=== PATIENT | male | born 1990 | race Caucasian/White ===

== ENCOUNTER 2018-08-15 20:35 | Inpatient (IN) | payer OTHER ==
[2018-08-15] MEDS ORDERED: ASPIRIN 81 MG PO STA (21:01)
[2018-08-15] MEDS ORDERED: DEXTROSE 5% IN WATER 100 ML with AMIODARONE 150 MG IV ONE (21:02)
[2018-08-15] MEDS ORDERED: DEXTROSE 5% IN WATER 250 ML with AMIODARONE 300 MG IV ONE (21:02)
[2018-08-15] MEDS ORDERED: AMIODARONE 360 MG in DEXTROSE 5% IN WATER 200 ML IV ONE ×2 (21:06)
[2018-08-15 21:21] LABS: Basophils % (A) 0 %; Eosinophils # (A) 0.2 k/uL (0-0.7); Eosinophils % (A) 2 %; HCT 45.3 % (39.0-53.0); HGB 15.3 gm/dL (13.0-17.5); Lymphocytes # (A) 2.5 k/uL (1.0-4.8); Lymphocytes % (A) 32 %; MCH 28.5 pg (25.0-35.0); MCHC 33.7 g/dL (31.0-37.0); MCV 84.4 fL (80.0-100.0); Mean Platelet Volume 6.6; Monocytes # (A) 0.4 k/uL (0-1.0); Monocytes % (A) 5 %; Neutrophils # (A) 4.7 k/uL (1.3-7.7); Neutrophils % (A) 60 %; Platelet Count 244 k/uL (150-450); RBC 5.37 m/uL (4.30-5.90); RDW 13.1 % (11.5-15.5); WBC 7.9 k/uL (3.8-10.6)
[2018-08-15 21:32] LABS: ALT 39 U/L (21-72); AST 32 U/L (17-59); Albumin 4.9 g/dL (3.5-5.0); Alkaline Phosphatase 60 U/L (38-126); Anion Gap 12 mmol/L; Blood Urea Nitrogen 16 mg/dL (9-20); Carbon Dioxide 23 mmol/L (22-30); Chloride 105 mmol/L (98-107); Glucose 136 mg/dL (74-99); Potassium 4.8 mmol/L (3.5-5.1); Sodium 140 mmol/L (137-145); Total Bilirubin 0.8 mg/dL (0.2-1.3); Total Protein 7.9 g/dL (6.3-8.2)
[2018-08-15 21:34] LABS: INR 1.1 (<1.2); Partial Thromboplastin Time 26.8 sec (22.0-30.0); Prothrombin Time 11.7 sec (9.0-12.0)
[2018-08-15] MEDS ORDERED: ONDANSETRON 4 MG/2 ML VIAL IVP STA (22:09)
[2018-08-15] MEDS ORDERED: LIDOCAINE 2% SYG (PF) 100 MG/5 ML IV STA (22:24)
--- NOTE | 2018-08-15 23:04 | XR ---
EXAM: XR Chest, 2 Views CLINICAL HISTORY: ITS.REASON XR Reason: dysrhythmia TECHNIQUE: Frontal and lateral views of the chest. COMPARISON: Chest radiograph on 07/14/2015 FINDINGS: Hardware: None. Lungs/pleura: Normal. No focal consolidation. No pleural effusion or pneumothorax. Heart/mediastinum: Left-sided pacemaker/AICD. No cardiomegaly. Soft tissues: Unremarkable. Bones: No acute fracture. Upper abdomen: Normal. IMPRESSION: No acute disease identified.
[2018-08-15] MEDS ORDERED: SOTALOL 80 MG TAB PO STA (23:11)
--- NOTE | 2018-08-15 23:26 | ED ---
Arrhythmia/Palpitations HPI - General Chief Complaint: Arrhythmia/Palpitations Stated Complaint: Arrhythmia Time Seen by Provider: 08/15/18 20:54 Source: patient Mode of arrival: ambulatory Limitations: no limitations - History of Present Illness Initial Comments: This 27-year-old male presents with a complaint of palpitations and feeling slightly fatigued which started at 4 PM today. He states that he was at work. He sat down and this did not seem to help. He then went home and rested and that still did not help. He denies any chest pain or shortness of breath. 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 He did have a defibrillator placed. His defibrillator has not gone off tonight. He previously was on sotalol 80 mg twice a day but states that he stopped this approximately one month ago due to insurance reasons. He denies any other complaints or modifying factors. 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 - Related Data Home Medications Medication Instructions Recorded Confirmed No Known Home Medications 08/15/18 08/15/18 Allergies Allergy/AdvReac Type Severity Reaction Status Date / Time No Known Allergies Allergy Verified 08/15/18 20:47 Review of Systems ROS Statement: Those systems with pertinent positive or pertinent negative responses have been documented in the HPI. ROS Other: All systems not noted in ROS Statement are negative. Past Medical History Past Medical History: Diabetes Mellitus Additional Past Medical History / Comment(s): See Dr Julienne Peña&Galo, (pt states he was diagnosed with diabetes several years ago. he states he does not see a physician to manage his diabetes and never checks his blood glucose furhtur stated that when he was in hospital last, that he was told he may have been misdiagnosed) . arrhythmia (per pts pt had v tach) x 1 year ago with cardioversion x 2, past concussion 4 years ago., History of Any Multi-Drug Resistant Organisms: None Reported Past Surgical History: EPS, Heart Catheterization, Pacemaker Additional Past Surgical History / Comment(s): CARDIOVERSION, Past Anesthesia/Blood Transfusion Reactions: No Reported Reaction Type of Cardiac Device: Permanent Pacemaker Device Placement Date:: 07/2015 Past Psychological History: No Psychological Hx Reported Smoking Status: Never smoker Past Alcohol Use History: None Reported Past Drug Use History: None Reported - Past Family History Mother Family Medical History: No Reported History Father Family Medical History: No Reported History Sister(s) Family Medical History: No Reported History General Exam - General Exam Comments Initial Comments: GENERAL: The patient is well nourished and well hydrated. VITAL SIGNS: Heart rate, blood pressure, respiratory rate reviewed as recorded in nurse's notes. EYES: Pupils are round and reactive. Extraocular movements are intact. No conjunctival / lid redness or swelling. ENT: No external evidence of injury, swelling, or ecchymosis. Airway is patent. Throat is clear. NECK: Nontender. No swelling or evidence of injury. No subcutaneous emphysema. Trachea is midline. No thyroid mass. HEART: Tachycardic regular rhythm LUNGS/CHEST: Breath sounds clear and equal bilaterally. No rales, rhonchi, or wheezes. No ecchymosis, subcutaneous emphysema, or tenderness. ABDOMEN: Abdomen soft without tenderness. No palpable masses or organomegaly. No peritoneal signs. No abdominal wall swelling or ecchymosis. EXTREMITIES: No extremity tenderness. Normal muscle tone and function. No thora columbar tenderness. NEUROLOGIC: Sensation is grossly intact. Cranial nerve exam reveals face is sy mmetrical, tongue is midline, speech is clear. SKIN: No abrasions or ecchymosis is noted. No induration or masses noted. PSYCHIATRIC: Alert and oriented. Appropriate behavior and judgment. Limitations: no limitations Course Vital Signs 08/15/18 08/15/18 08/15/18 20:37 21:59 22:10 Temperature 97.5 F L Pulse Rate 167 H 173 H 156 H Respiratory 18 20 20 Rate Blood Pressure 99/85 124/47 O2 Sat by Pulse 100 99 100 Oximetry 08/15/18 08/15/18 22:30 23:00 Temperature Pulse Rate 154 H 158 H Respiratory 20 20 Rate Blood Pressure 110/97 111/90 O2 Sat by Pulse 98 99 Oximetry Medical Decision Making - Medical Decision Making The patient was seen and examined. All diagnostics were reviewed. The EKG shows a wide complex tachycardia at a rate of 167. He also has a left bundle branch block. The QRS duration is 174 and the QTC intervals 507. An IV is established and he is mildly hydrated. The patient receives amiodarone 150 mg over 10 minutes and then is started on an amiodarone drip. This does not seem to affect his rate to any degree. He became nauseated and vomited on one occasion receives 8 mg of Zofran intravenously. The laboratories reviewed and shows an elevated troponin. The case is discussed with Dr. Stanley from cardiology and he would request of the patient received some lidocaine 100 mg IV and then possibly a drip if this seems to work. This does not work then he is also to attempt some Lopressor 5 mg IV. The patient is feeling well on multiple rechecks but is persistently tachycardic. It is felt as though he would require admission to the intensive care unit for further treatment. The case is also discussed with ICU physician Dr. Gray and he is informed of patient's pr ogress. In addition, case is discussed with internal medicine and they're agreeable to admission as well. As a further update, after receiving most of the lidocaine, he converted back to a normal sinus rhythm. Case was rediscussed with Dr. Stanley and he would like us to continue him on both the amiodarone and the lidocaine drip. The patient is stable on recheck and updated on multiple occasions. Approximately 40 minutes of critical care time is utilized and the treatment of the patient. The repeat EKG shows a normal sinus rhythm at a rate of 83. There is some T-wave inversions in V1 and V2. There is no ST elevation identified. The MD intervals 140, QRS duration is 106, and the QTC intervals 458. - Lab Data Result diagrams: 08/15/18 21:11 08/15/18 21:11 Lab Results 08/15/18 08/15/18 08/15/18 Range/Units 21:11 21:11 21:11 WBC 7.9 (3.8-10.6) k/uL RBC 5.37 (4.30-5.90) m/uL Hgb 15.3 (13.0-17.5) gm/dL Hct 45.3 (39.0-53.0) % MCV 84.4 (80.0-100.0) fL MCH 28.5 (25.0-35.0) pg MCHC 33.7 (31.0-37.0) g/dL RDW 13.1 (11.5-15.5) % Plt Count 244 (150-450) k/uL Neutrophils % 60 % Lymphocytes % 32 % Monocytes % 5 % Eosinophils % 2 % Basophils % 0 % Neutrophils # 4.7 (1.3-7.7) k/uL Lymphocytes # 2.5 (1.0-4.8) k/uL Monocytes # 0.4 (0-1.0) k/uL Eosinophils # 0.2 (0-0.7) k/uL Basophils # 0.0 (0-0.2) k/uL PT 11.7 (9.0-12.0) sec INR 1.1 (<1.2) APTT 26.8 (22.0-30.0) sec Sodium 140 (137-145) mmol/L Potassium 4.8 (3.5-5.1) mmol/L Chloride 105 (98-107) mmol/L Carbon Dioxide 23 (22-30) mmol/L Anion Gap 12 mmol/L BUN 16 (9-20) mg/dL Creatinine 0.91 (0.66-1.25) mg/dL Est GFR (CKD-EPI)AfAm >90 (>60 ml/min/1.73 sqM) Est GFR (CKD-EPI)NonAf >90 (>60 ml/min/1.73 sqM) Glucose 136 H (74-99) mg/dL Calcium 10.0 (8.4-10.2) mg/dL Magnesium 2.0 (1.6-2.3) mg/dL Total Bilirubin 0.8 (0.2-1.3) mg/dL AST 32 (17-59) U/L ALT 39 (21-72) U/L Alkaline Phosphatase 60 (38-126) U/L Troponin I (0.000-0.034) ng/mL Total Protein 7.9 (6.3-8.2) g/dL Albumin 4.9 (3.5-5.0) g/dL TSH 3.200 (0.465-4.680) mIU/L 08/15/18 Range/Units 21:11 WBC (3.8-10.6) k/uL RBC (4.30-5.90) m/uL Hgb (13.0-17.5) gm/dL Hct (39.0-53.0) % MCV (80.0-100.0) fL MCH (25.0-35.0) pg MCHC (31.0-37.0) g/dL RDW (11.5-15.5) % Plt Count (150-450) k/uL Neutrophils % % Lymphocytes % % Monocytes % % Eosinophils % % Basophils % % Neutrophils # (1.3-7.7) k/uL Lymphocytes # (1.0-4.8) k/uL Monocytes # (0-1.0) k/uL Eosinophils # (0-0.7) k/uL Basophils # (0-0.2) k/uL PT (9.0-12.0) sec INR (<1.2) APTT (22.0-30.0) sec Sodium (137-145) mmol/L Potassium (3.5-5.1) mmol/L Chloride (98-107) mmol/L Carbon Dioxide (22-30) mmol/L Anion Gap mmol/L BUN (9-20) mg/dL Creatinine (0.66-1.25) mg/dL Est GFR (CKD-EPI)AfAm (>60 ml/min/1.73 sqM) Est GFR (CKD-EPI)NonAf (>60 ml/min/1.73 sqM) Glucose (74-99) mg/dL Calcium (8.4-10.2) mg/dL Magnesium (1.6-2.3) mg/dL Total Bilirubin (0.2-1.3) mg/dL AST (17-59) U/L ALT (21-72) U/L Alkaline Phosphatase (38-126) U/L Troponin I 0.258 H* (0.000-0.034) ng/mL Total Protein (6.3-8.2) g/dL Albumin (3.5-5.0) g/dL TSH (0.465-4.680) mIU/L Disposition Clinical Impression: Wide-complex tachycardia, Elevated troponin, Palpitations Disposition: ADMITTED IP TO THIS HOSP Condition: Fair Is patient prescribed a controlled substance at d/c from ED?: No Time of Disposition: 23: Decision Date: 08/15/18 Decision Time: 23:26
[2018-08-15] MEDS ORDERED: ACETAMINOPHEN TAB 325 MG TAB PO PRN (23:38)
[2018-08-15] MEDS: LIDOCAINE-D5W PMX 2G/250ML 2,000 MG in DEXTROSE/WATER 1 250ML.BAG IV SCH (23:58)
[2018-08-16 01:51] LABS: Glucose,Whole Blood 117 mg/dL (75-99)
[2018-08-16 02:03] VITALS: BMI 23.1
[2018-08-16] MEDS: AMIODARONE 300 MG in DEXTROSE 5% IN WATER 250 ML IV SCH ×4 (03:00→15:01)
[2018-08-16 03:57] LABS: Basophils % (A) 0 %; Eosinophils # (A) 0.1 k/uL (0-0.7); Eosinophils % (A) 1 %; HCT 42.8 % (39.0-53.0); HGB 14.1 gm/dL (13.0-17.5); Lymphocytes % (A) 11 %; MCH 28.1 pg (25.0-35.0); MCHC 32.9 g/dL (31.0-37.0); MCV 85.3 fL (80.0-100.0); Mean Platelet Volume 6.5; Monocytes # (A) 0.5 k/uL (0-1.0); Monocytes % (A) 6 %; Neutrophils # (A) 7.5 k/uL (1.3-7.7); Neutrophils % (A) 80 %; Platelet Count 196 k/uL (150-450); RBC 5.02 m/uL (4.30-5.90); RDW 13.1 % (11.5-15.5); WBC 9.3 k/uL (3.8-10.6)
[2018-08-16 04:26] LABS: Anion Gap 8 mmol/L; Blood Urea Nitrogen 19 mg/dL (9-20); Calcium 9.8 mg/dL (8.4-10.2); Carbon Dioxide 29 mmol/L (22-30); Chloride 101 mmol/L (98-107); Glucose 114 mg/dL (74-99); Magnesium 2.2 mg/dL (1.6-2.3); Phosphorus 4.4 mg/dL (2.5-4.5); Potassium 5.4 mmol/L (3.5-5.1); Sodium 138 mmol/L (137-145)
--- NOTE | 2018-08-16 07:31 | P.CRDCN ---
History of Present Illness Consult date: 08/16/18 Chief complaint: Palpitation History of present illness: This is a pleasant 27-year-old gentleman with a past medical history significant for cardiac arrhythmia in the form of ventricular tachycardia where he received an AICD back in 2015 presented to the hospital complaining of palpitation. The patient was in his usual state of health until yesterday when he was sitting home and suddenly started experiencing palpitation in the chest without any symptoms of dizziness or lightheadedness or syncope. No chest pain or chest discomfort. Because of that he decided to come to the emergency room were in the ER he was found to be in wide-complex tachycardia consistent with V. tach. The heart rate at that point was 150 bpm. The patient received amiodarone without any response and subsequently he was started on lidocaine drip with conversion to normal sinus mechanism. Since then he has been in normal sinus mechanism. He is feeling better. Electrolytes were checked and came in to be unremarkable. The patient was receiving sotalol as an outpatient but unfortunately because of insurance issues he was unable to afford his medications so he was not receiving his home medications for a few weeks now. The cardiac enzymes came in to be slightly abnormal and that is likely secondary to the tachycardia and ventricular tachycardia. The patient did not have any symptoms of chest pain or chest discomfort. Past Medical History Past Medical History: Diabetes Mellitus Additional Past Medical History / Comment(s): See Dr Julienne Peña&Galo, (pt states he was diagnosed with diabetes several years ago. he states he does not see a physician to manage his diabetes and never checks his blood glucose furhtur stated that when he was in hospital last, that he was told he may have been misdiagnosed) . arrhythmia (per pts pt had v tach) x 1 year ago with cardioversion x 2, past concussion 4 years ago., History of Any Multi-Drug Resistant Organisms: None Reported Past Surgical History: EPS, Heart Catheterization, Pacemaker Additional Past Surgical History / Comment(s): CARDIOVERSION, Past Anesthesia/Blood Transfusion Reactions: No Reported Reaction Type of Cardiac Device: Permanent Pacemaker Device Placement Date:: 07/2015 Past Psychological History: No Psychological Hx Reported Additional Psychological History / Comment(s): . Smoking Status: Never smoker Past Alcohol Use History: None Reported Past Drug Use History: None Reported - Past Family History Mother Family Medical History: No Reported History Father Family Medical History: No Reported History Sister(s) Family Medical History: No Reported History Medications and Allergies Home Medications Medication Instructions Recorded Confirmed Type Sotalol [Betapace] 80 mg PO BID 08/16/18 08/16/18 History Allergies Allergy/AdvReac Type Severity Reaction Status Date / Time No Known Allergies Allergy Verified 08/15/18 20:47 Physical Exam Vitals: Vital Signs Temp Pulse Resp BP Pulse Ox 08/16/18 07:00 64 20 08/16/18 06:45 68 9 L 118/77 98 08/16/18 06:30 60 15 08/16/18 06:15 62 17 122/82 08/16/18 06:00 81 11 L 122/82 08/16/18 05:45 59 L 14 123/76 08/16/18 05:30 70 14 106/68 08/16/18 05:15 57 L 15 08/16/18 05:00 58 L 15 106/68 08/16/18 04:45 59 L 13 08/16/18 04:30 58 L 14 08/16/18 04:15 63 15 08/16/18 04:00 97.5 F L 76 13 108/74 97 08/16/18 03:45 75 14 08/16/18 03:30 59 L 13 08/16/18 03:15 61 15 08/16/18 03:00 62 15 08/16/18 02:45 59 L 13 08/16/18 02:30 64 19 08/16/18 02:10 61 08/16/18 01:50 97.5 F L 72 16 122/90 98 08/15/18 23:23 87 20 112/67 99 08/15/18 23:00 158 H 20 111/90 99 08/15/18 22:30 154 H 20 110/97 98 08/15/18 22:10 156 H 20 100 08/15/18 21:59 173 H 20 124/47 99 08/15/18 20:37 97.5 F L 167 H 18 99/85 100 Intake and Output 08/15/18 08/16/18 08/16/18 22:59 06:59 14:59 Output Total 750 700 Balance -750 -700 Output: Urine 750 700 Other: # Voids 0 1 Weight 74.843 kg - Constitutional General appearance: no acute distress - Respiratory Respiratory: bilateral: CTA - Cardiovascular Rhythm: regular Heart sounds: normal: S1, S2 Results 08/16/18 03:44 08/16/18 03:44 Cardiac Enzymes 08/15/18 08/15/18 08/16/18 Range/Units 21:11 21:11 03:44 AST 32 (17-59) U/L Troponin I 0.258 H* 0.526 H* (0.000-0.034) ng/mL Coagulation 08/15/18 Range/Units 21:11 PT 11.7 (9.0-12.0) sec APTT 26.8 (22.0-30.0) sec CBC 08/15/18 08/16/18 Range/Units 21:11 03:44 WBC 7.9 9.3 (3.8-10.6) k/uL RBC 5.37 5.02 (4.30-5.90) m/uL Hgb 15.3 14.1 (13.0-17.5) gm/dL Hct 45.3 42.8 (39.0-53.0) % Plt Count 244 196 (150-450) k/uL Comprehensive Metabolic Panel 08/15/18 08/16/18 Range/Units 21:11 03:44 Sodium 140 138 (137-145) mmol/L Potassium 4.8 5.4 H (3.5-5.1) mmol/L Chloride 105 101 (98-107) mmol/L Carbon Dioxide 23 29 (22-30) mmol/L BUN 16 19 (9-20) mg/dL Creatinine 0.91 0.99 (0.66-1.25) mg/dL Glucose 136 H 114 H (74-99) mg/dL Calcium 10.0 9.8 (8.4-10.2) mg/dL AST 32 (17-59) U/L ALT 39 (21-72) U/L Alkaline Phosphatase 60 (38-126) U/L Total Protein 7.9 (6.3-8.2) g/dL Albumin 4.9 (3.5-5.0) g/dL Current Medications Generic Name Dose Route Start Last Admin Trade Name Freq PRN Reason Stop Dose Admin Acetaminophen 650 mg 08/15/18 23:38 Tylenol Tab PO Q4HR PRN Fever and/or Mild Pain Aspirin 325 mg 08/16/18 09:00 Aspirin PO DAILY JOANNA Enoxaparin Sodium 40 mg 08/16/18 09:00 Lovenox SQ DAILY JOANNA Amiodarone HCl 300 mg/ 250 mls @ 25 mls/hr 08/16/18 03:06 08/16/18 03:00 Dextrose/Water IV 08/16/18 21:05 0.5 mg/min .Q10H JOANNA 25 mls/hr Administration Protocol 0.5 MG/MIN Lidocaine HCl/Dextrose 2,000 250 mls @ 15 mls/hr 08/15/18 23:45 08/15/18 23:58 mg/ IV Solution IV 2 mg/min .[id number] JOANNA 15 mls/hr Administration 2 MG/MIN Metoprolol Tartrate 25 mg 08/16/18 09:00 Lopressor PO BID JOANNA Pantoprazole Sodium 40 mg 08/16/18 09:00 Protonix IV DAILY JOANNA Intake and Output 08/15/18 08/16/18 08/16/18 22:59 06:59 14:59 Output Total 750 700 Balance -750 -700 Output: Urine 750 700 Other: # Voids 0 1 Weight 74.843 kg 08/16/18 03:44 08/16/18 03:44 Assessment and Plan Assessment: Assessment #1 sustained ventricular tachycardia #2 known ventricular tachycardia #3 status post AICD #4 noncompliance with medications Plan #1 continue the amiodarone drip and continue the lidocaine drip #2 interrogated AICD #3 start the patient on metoprolol by mouth #[address] Robins to see the patient #5 follow-up with the patient Thank you for allowing us participate in his care
[2018-08-16] MEDS ORDERED: PANTOPRAZOLE 40 MG/10 ML VIAL IV SCH (09:00)
[2018-08-16] MEDS ORDERED: METOPROLOL TARTRATE 25 MG TAB PO SCH (09:00)
[2018-08-16] MEDS: ASPIRIN 325 MG TAB PO SCH (09:13)
[2018-08-16] MEDS: ENOXAPARIN 40 MG/0.4 ML SYRINGE SQ SCH (09:13)
--- NOTE | 2018-08-16 11:10 | P.CNPUL ---
History of Present Illness Consult date: 08/16/18 Requesting physician: Donavan Toro Reason for consult: other (Ventricular tachycardia) Chief complaint: Palpitations History of present illness: This is a 27-year-old white male with known history of ventricular tachycardia for many years. Patient had previous AICD in 2016, and has been controlled with antiarrhythmic agents given to him by Dr. Alejo. Patient had some issues with the cost of the medication, and he stopped taking it. Presented to the ER yesterday with mostly symptoms of palpitations without any dizziness lightheadedness or syncope. He had no chest pain, in the ER, the patient was found to have wide complex tachycardia consistent with ventricular tachycardia. Heart rate was 150/m. Patient received amiodarone without any response, he was later placed on lidocaine drip in addition to amiodarone. Patient converted to a sinus rhythm, admitted to the ICU, and I was asked to see him on consultation. During my evaluation, patient was relatively asymptomatic, he was in normal sinus rhythm, had no palpitations, no chest pain, no shortness of breath, he was already seen by cardiology, and he is yet to be seen by Dr. Alejo who was consulted by Dr. Sesay. According to the patient, he was maintained on sotalol, and he couldn't afford buying it. Review of Systems Constitutional: Denies any weight loss, no fever, no chills, no night sweats. HEENT: Denies any sore throat, no earaches, no diplopia, no blurred vision, no headaches, no dizziness. Cardiac: As noted in HPI, mostly palpitations. No chest pain, no syncope. No orthopnea, no PND. Pulmonary: No cough no wheezing no shortness of breath no chest pain, no hemoptysis. GI: Denies any nausea vomiting abdominal pain melena or hematemesis. No diarrhea no constipation. Genitourinary: Denies any dysuria frequency urgency or hematuria. [place] skeletal: Denies any arthralgia, or myalgia. Skin: Denies any rashes, or erythema. No skin discoloration, no hives. Neurologic: No headaches no blurred vision no dizziness. No syncope. Psychiatric: Denies any symptoms of active depression Hematologic: Denies any clotting bleeding or bruising. Past Medical History Past Medical History: Diabetes Mellitus Additional Past Medical History / Comment(s): See Dr Julienne Peña&Galo, (pt states he was diagnosed with diabetes several years ago. he states he does not see a physician to manage his diabetes and never checks his blood glucose furhtur stated that when he was in hospital last, that he was told he may have been misdiagnosed) . arrhythmia (per pts pt had v tach) x 1 year ago with cardioversion x 2, past concussion 4 years ago., History of Any Multi-Drug Resistant Organisms: None Reported Past Surgical History: EPS, Heart Catheterization, Pacemaker Additional Past Surgical History / Comment(s): CARDIOVERSION, Past Anesthesia/Blood Transfusion Reactions: No Reported Reaction Type of Cardiac Device: Permanent Pacemaker Device Placement Date:: 07/2015 Past Psychological History: No Psychological Hx Reported Additional Psychological History / Comment(s): . Smoking Status: Never smoker Past Alcohol Use History: None Reported Past Drug Use History: None Reported - Past Family History Mother Family Medical History: No Reported History Father Family Medical History: No Reported History Sister(s) Family Medical History: No Reported History Medications and Allergies Home Medications Medication Instructions Recorded Confirmed Type Sotalol [Betapace] 80 mg PO BID 08/16/18 08/16/18 History Allergies Allergy/AdvReac Type Severity Reaction Status Date / Time No Known Allergies Allergy Verified 08/15/18 20:47 Physical Exam Vitals: Vital Signs Temp Pulse Resp BP Pulse Ox 08/16/18 10:30 75 8 L 114/76 08/16/18 10:15 64 20 114/76 08/16/18 10:00 65 15 112/72 08/16/18 09:45 70 22 112/72 08/16/18 09:30 72 14 116/80 08/16/18 09:15 75 11 L 116/80 08/16/18 09:00 75 23 116/80 08/16/18 08:45 80 16 118/72 08/16/18 08:30 69 42 H 124/76 08/16/18 08:15 77 18 124/76 08/16/18 08:00 97.5 F L 70 11 L 127/84 99 08/16/18 07:45 71 14 127/84 08/16/18 07:30 67 23 120/82 08/16/18 07:15 72 14 120/82 08/16/18 07:00 64 20 08/16/18 06:45 68 9 L 118/77 98 08/16/18 06:30 60 15 08/16/18 06:15 62 17 122/82 08/16/18 06:00 81 11 L 122/82 08/16/18 05:45 59 L 14 123/76 08/16/18 05:30 70 14 106/68 08/16/18 05:15 57 L 15 08/16/18 05:00 58 L 15 106/68 08/16/18 04:45 59 L 13 08/16/18 04:30 58 L 14 08/16/18 04:15 63 15 08/16/18 04:00 97.5 F L 76 13 108/74 97 08/16/18 03:45 75 14 08/16/18 03:30 59 L 13 08/16/18 03:15 61 15 08/16/18 03:00 62 15 08/16/18 02:45 59 L 13 08/16/18 02:30 64 19 08/16/18 02:10 61 08/16/18 01:50 97.5 F L 72 16 122/90 98 08/15/18 23:23 87 20 112/67 99 08/15/18 23:00 158 H 20 111/90 99 08/15/18 22:30 154 H 20 110/97 98 08/15/18 22:10 156 H 20 100 08/15/18 21:59 173 H 20 124/47 99 08/15/18 20:37 97.5 F L 167 H 18 99/85 100 Intake and Output 08/15/18 08/16/18 08/16/18 22:59 06:59 14:59 Intake Total 600 Output Total 750 1400 Balance -750 -800 Intake: Intake, IV Titration 120 Amount Amiodarone 300 mg In 75 Dextrose 5% in Water 250 ml @ 0.5 MG/MIN 25 mls/hr IV .Q10H JOANNA Rx#: [id number] Lidocaine-D5w Pmx 2G/ 45 250Ml 2,000 mg In Dextrose/Water 1 250ml. bag @ 2 MG/MIN 15 mls/hr IV .[id number] JOANNA Rx#: [id number] Oral 480 Output: Urine 750 1400 Other: # Voids 0 1 Weight 74.843 kg Physical Exam: Revealed a 27-year-old white male in no distress. Head: Atraumatic, normocephalic. HEENT:[Neck is supple.] [No neck masses.] [No thyromegaly.] [No JVD.] Chest: [Clear throughout, no crackles, no rhonchi, no wheezes.] Cardiac Exam: [Normal S1 and S2, no S3 gallop, no murmur.] Abdomen: [Soft, nontender, no megaly, no rebound, no guarding, normal bowel sounds.] Extremities: [No clubbing, no edema, no cyanosis.] Neurological Exam: [No focal neurologic deficit.] Psychiatric: Normal mood affect and mental status examination Skin: No rashes. Lymphatics: No lymphadenopathy. Musculoskeletal: No limitation in range of motion as, no deformities. Results - Laboratory Findings CBC and BMP: 08/16/18 03:44 08/16/18 03:44 PT/INR, D-dimer PT 11.7 sec (9.0-12.0) 08/15/18 21:11 INR 1.1 (<1.2) 08/15/18 21:11 Abnormal lab findings: Abnormal Labs 08/15/18 08/15/18 08/16/18 21:11 21:11 01:47 Potassium Glucose 136 H POC Glucose (mg/dL) 117 H Troponin I 0.258 H* 08/16/18 08/16/18 08/16/18 03:44 03:44 08:48 Potassium 5.4 H Glucose 114 H POC Glucose (mg/dL) Troponin I 0.526 H* 0.401 H* - Diagnostic Findings Chest x-ray: image reviewed (No evidence of active disease.) Assessment and Plan Assessment: Impression: 1 wide-complex tachycardia with elevated troponins, Recommendation: Continue present treatment plan including amiodarone and lidocaine drip, patient may be switched to oral amiodarone, however prior to switching the patient, he is to be seen by Dr. Alejo, and decision will be made regarding his treatment plan. In the meantime his wide-complex tachycardia is well controlled, and we will continue to monitor the patient in the ICU. Continue amiodarone and lidocaine for the time being. All labs were reviewed a chest x-ray was reviewed. Not much to be added from the pulmonary perspective at this point. Time with Patient: Greater than 30
--- NOTE | 2018-08-16 11:56 | ECHOF ---
Referral Reason:arrythmia MEASUREMENTS -------- HEIGHT: 177.8 cm WEIGHT: 74.8 kg BP: 122/82 IVSd: 1.3 cm (0.6 - 1.1) LVIDd: 4.2 cm (3.9 - 5.3) LVPWd: 1.2 cm (0.6 - 1.1) IVSs: 1.7 cm LVIDs: 3.0 cm LVPWs: 1.8 cm LA Diam: 2.9 cm (2.7 - 3.8) RVIDd: 3.3 cm (< 3.3) Ao Diam: 3.3 cm (2.0 - 3.7) AV Cusp: 2.5 cm (1.5 - 2.6) EPSS: 0.4 cm MV E Tony: 0.86 m/s MV DecT: 246 ms MV A Tony: 0.44 m/s MV E/A Ratio: 1.97 RAP: 5.00 mmHg RVSP: 22.27 mmHg MV EF SLOPE: 113.70 mm/s (70 - 150) MV EXCURSION: 17.01 mm (> 18.000) FINDINGS -------- Paced rhythm. This was a technically adequate study. The left ventricular size is normal. There is mild concentric left ventricular hypertrophy. Overa ll left ventricular systolic function is mildly impaired with, an EF between 45 - 50 %. The right ventricle is mildly enlarged. The left atrial size is normal. The right atrium is normal in size. Interatrial and interventricular septum intact. The aortic valve is trileaflet and appears structurally normal. The mitral valve is normal. Mild tricuspid regurgitation present. Right ventricular systolic pressure is normal at < 35 mmHg. Trace/mild (physiologic) pulmonic regurgitation. The aortic root size is normal. Normal inferior vena cava with normal inspiratory collapse consistent with estimated right atrial pre ssure of 5 mmHg. The inferior vena cava is mildly dilated. There is no pericardial effusion. CONCLUSIONS -------- 1. Paced rhythm. 2. This was a technically adequate study. 3. The left ventricular size is normal. 4. There is mild concentric left ventricular hypertrophy. 5. Overall left ventricular systolic function is mildly impaired with, an EF between 45 - 50 %. 6. The right ventricle is mildly enlarged. 7. The left atrial size is normal. 8. The right atrium is normal in size. 9. Interatrial and interventricular septum intact. 10. The aortic valve is trileaflet and appears structurally normal. 11. The mitral valve is normal. 12. Mild tricuspid regurgitation present. 13. Right ventricular systolic pressure is normal at < 35 mmHg. 14. Trace/mild (physiologic) pulmonic regurgitation. 15. The aortic root size is normal. 16. Normal inferior vena cava with normal inspiratory collapse consistent with estimated right atrial pressure of 5 mmHg. 17. The inferior vena cava is mildly dilated. 18. There is no pericardial effusion. DIE REPAIR MACHINIST: Rosamaria Gamble RDCS
[2018-08-16] MEDS: LIDOCAINE-D5W PMX 2G/250ML 2,000 MG in DEXTROSE/WATER 1 250ML.BAG IV SCH (13:51)
[2018-08-16 14:28] LABS: Appearance,Urine Clear (Clear); Bilirubin,Urine Negative (Negative); Blood,Urine Negative (Negative); Color,Urine Light Yellow; Glucose,Urine (UA) Negative (Negative); Ketones,Urine Negative (Negative); Leukocyte Esterase,Urine Negative (Negative); Nitrite,Urine Negative (Negative); Protein,Urine Negative (Negative); Urobilinogen,Urine <2.0 mg/dL (<2.0)
--- NOTE | 2018-08-16 16:03 | P.HPIM ---
History of Present Illness H&P Date: 08/16/18 This is a 27 year old male patient without primary care physician but follow-up with Dr. Tee in the past with history of AICD placement for ventricular tachycardia in 2016. Patient gives history of feeling palpitations. He denies any syncopal episodes. No history of CVA. He denies any shortness of breath, chest pain no abdominal pain. He states he has felt a shock from the AICD but it was 2 years ago. Patient came into [facility] emergency center where he was found have a wide complex tachycardia consistent with V. tach. It was at 150 bpm. Patient was started on lidocaine drip and converted to normal sinus rhythm. Patient is now seen in the intensive care unit and his pacing maker has been interrogated this morning. He has been seen in consultation by cardiology with plan for continuation of lidocaine drip and amiodarone drip and metoprolol was started by mouth. Patient to be seen by Dr. Aceves as well. Echocardiogram reveals EF of 45-50% with mild concentric left hypertrophy, mild tricuspid regurgitation. Review of Systems All systems: negative Constitutional: Denies anorexia, Denies chills, Denies fatigue, Denies fever, Denies lethargy, Denies malaise, Denies poor appetite Eyes: denies blurred vision, denies pain Ears, nose, mouth and throat: Denies dysphagia, Denies headache, Denies nasal congestion, Denies nasal discharge, Denies sore throat, Denies vertigo Cardiovascular: Reports palpitations, Denies chest pain, Denies dyspnea on exertion, Denies edema, Denies shortness of breath, Denies syncope Respiratory: Denies cough, Denies cough with sputum, Denies dyspnea, Denies excessive sputum, Denies hemoptysis, Denies home oxygen, Denies wheezing Gastrointestinal: Denies abdominal pain, Denies diarrhea, Denies loss of appetite, Denies nausea, Denies vomiting Genitourinary: Denies dysuria Musculoskeletal: Denies frequent falls, Denies gait dysfunction, Denies muscle weakness, Denies myalgias Integumentary: Denies pruritus, Denies rash, Denies wounds Neurological: Denies aphasia, Denies change in mentation, Denies change in spee ch, Denies gait dysfunction, Denies headaches, Denies numbness, Denies seizures, Denies vertigo, Denies weakness Psychiatric: Denies anxiety, Denies depression Endocrine: Denies fatigue, Denies weight change Past Medical History Past Medical History: Diabetes Mellitus Additional Past Medical History / Comment(s): per pts pt had v tach) x 1 year ago with cardioversion x 2, past concussion 4 years ago., History of Any Multi-Drug Resistant Organisms: None Reported Past Surgical History: AICD, EPS, Heart Catheterization Additional Past Surgical History / Comment(s): CARDIOVERSION, Past Anesthesia/Blood Transfusion Reactions: No Reported Reaction Type of Cardiac Device: Permanent Pacemaker Device Placement Date:: 07/2015 Past Psychological History: No Psychological Hx Reported Additional Psychological History / Comment(s): . Smoking Status: Never smoker Past Alcohol Use History: None Reported Additional Past Alcohol Use History / Comment(s): Patient is a lifelong nonsmoker, no marijuana or illicit drug use, no alcohol use. Past Drug Use History: None Reported - Past Family History Mother Family Medical History: No Reported History Father Family Medical History: No Reported History Sister(s) Family Medical History: No Reported History Medications and Allergies Home Medications Medication Instructions Recorded Confirmed Type Sotalol [Betapace] 80 mg PO BID 08/16/18 08/16/18 History Allergies Allergy/AdvReac Type Severity Reaction Status Date / Time No Known Allergies Allergy Verified 08/15/18 20:47 Physical Exam Vitals: Vital Signs Temp Pulse Resp BP Pulse Ox 08/16/18 10:30 75 8 L 114/76 08/16/18 10:15 64 20 114/76 08/16/18 10:00 65 15 112/72 08/16/18 09:45 70 22 112/72 08/16/18 09:30 72 14 116/80 08/16/18 09:15 75 11 L 116/80 08/16/18 09:00 75 23 116/80 08/16/18 08:45 80 16 118/72 08/16/18 08:30 69 42 H 124/76 08/16/18 08:15 77 18 124/76 08/16/18 08:00 97.5 F L 70 11 L 127/84 99 08/16/18 07:45 71 14 127/84 08/16/18 07:30 67 23 120/82 08/16/18 07:15 72 14 120/82 08/16/18 07:00 64 20 08/16/18 06:45 68 9 L 118/77 98 08/16/18 06:30 60 15 08/16/18 06:15 62 17 122/82 08/16/18 06:00 81 11 L 122/82 08/16/18 05:45 59 L 14 123/76 08/16/18 05:30 70 14 106/68 08/16/18 05:15 57 L 15 08/16/18 05:00 58 L 15 106/68 08/16/18 04:45 59 L 13 08/16/18 04:30 58 L 14 08/16/18 04:15 63 15 08/16/18 04:00 97.5 F L 76 13 108/74 97 08/16/18 03:45 75 14 08/16/18 03:30 59 L 13 08/16/18 03:15 61 15 08/16/18 03:00 62 15 08/16/18 02:45 59 L 13 08/16/18 02:30 64 19 08/16/18 02:10 61 08/16/18 01:50 97.5 F L 72 16 122/90 98 08/15/18 23:23 87 20 112/67 99 08/15/18 23:00 158 H 20 111/90 99 08/15/18 22:30 154 H 20 110/97 98 08/15/18 22:10 156 H 20 100 08/15/18 21:59 173 H 20 124/47 99 08/15/18 20:37 97.5 F L 167 H 18 99/85 100 Intake and Output 08/15/18 08/16/18 08/16/18 22:59 06:59 14:59 Intake Total 600 Output Total 750 1400 Balance -750 -800 Intake: Intake, IV Titration 120 Amount Amiodarone 300 mg In 75 Dextrose 5% in Water 250 ml @ 0.5 MG/MIN 25 mls/hr IV .Q10H [facility] Rx#: [id number] Lidocaine-D5w Pmx 2G/ 45 250Ml 2,000 mg In Dextrose/Water 1 250ml. bag @ 2 MG/MIN 15 mls/hr IV .[id number] [facility] Rx#: [id number] Oral 480 Output: Urine 750 1400 Other: # Voids 0 1 Weight 74.843 kg Gen: This is a 27-year-old male. He is resting in the ICU bed sleeping and awakens to light touch. He appears to be comfortable and in no acute distress. HEENT: Head is atraumatic, normocephalic. Pupils equal, round. Sclerae is anicteric. Conjunctiva pink. NECK: Supple. No JVD. No lymphadenopathy. No thyromegaly. LUNGS: Clear to auscultation. No wheezes or rhonchi. No intercostal retractions. HEART: Regular rate and rhythm. No murmur. ABDOMEN: Soft. Bowel sounds are present. No masses. No tenderness. EXTREMITIES: No pedal edema. No calf tenderness. Dorsalis pedis +2 bilaterally. NEUROLOGICAL: Patient is awake, alert and oriented x3. Cranial nerves 2 through 12 are grossly intact. Results CBC & Chem 7: 08/16/18 03:44 08/16/18 03:44 Labs: Abnormal Lab Results - Last 24 Hours (Table) 08/15/18 08/15/18 08/16/18 Range/Units 21:11 21:11 01:47 Potassium (3.5-5.1) mmol/L Glucose 136 H (74-99) mg/dL POC Glucose (mg/dL) 117 H (75-99) mg/dL Troponin I 0.258 H* (0.000-0.034) ng/mL 08/16/18 08/16/18 08/16/18 Range/Units 03:44 03:44 08:48 Potassium 5.4 H (3.5-5.1) mmol/L Glucose 114 H (74-99) mg/dL POC Glucose (mg/dL) (75-99) mg/dL Troponin I 0.526 H* 0.401 H* (0.000-0.034) ng/mL Thrombosis Risk Factor Assmnt - DVT/VTE Prophylaxis DVT/VTE Prophylaxis: Pharmacologic Prophylaxis ordered - Choose All That Apply Any of the Below Risk Factors Present?: No Other Risk Factors: No Other congenital or acquired thrombophilia - If yes, enter type in comment: No Thrombosis Risk Factor Assessment Level: Very Low Risk Assessment and Plan Plan: 1. Wide complex tachycardia. Cardiology consult appreciated. Consult with Dr. Robins has been added. Continue amiodarone and lidocaine drips. Patient started on metoprolol. 2. History of ventricular tachycardia status post AICD. This is been interrogated this morning. 3. DVT prophylaxis. Lovenox. 4. GI prophylaxis. Protonix. Patient will be admitted to the hospital for a minimum of 2 night stay. Discharge plan: Return home. Impression and plan of care have been directed as dictated by the signing physician. Yulissa Das nurse practitioner acting as scribe for signing physician.
[2018-08-16] MEDS: METOPROLOL TARTRATE 50 MG TAB PO SCH (20:32)
[2018-08-16] MEDS ORDERED: LIDOCAINE-D5W PMX 2G/250ML 2,000 MG in DEXTROSE/WATER 1 250ML.BAG IV SCH (20:45)
[2018-08-17 05:50] LABS: Basophils % (A) 0 %; Eosinophils # (A) 0.1 k/uL (0-0.7); Eosinophils % (A) 1 %; HCT 41.2 % (39.0-53.0); HGB 13.6 gm/dL (13.0-17.5); Lymphocytes # (A) 1.8 k/uL (1.0-4.8); Lymphocytes % (A) 20 %; MCV 84.9 fL (80.0-100.0); Monocytes # (A) 0.6 k/uL (0-1.0); Monocytes % (A) 7 %; Neutrophils # (A) 6.2 k/uL (1.3-7.7); Neutrophils % (A) 69 %; Platelet Count 194 k/uL (150-450); RBC 4.85 m/uL (4.30-5.90); RDW 13.6 % (11.5-15.5); WBC 8.9 k/uL (3.8-10.6)
[2018-08-17 06:01] LABS: Anion Gap 7 mmol/L; Blood Urea Nitrogen 17 mg/dL (9-20); Calcium 9.4 mg/dL (8.4-10.2); Carbon Dioxide 28 mmol/L (22-30); Chloride 104 mmol/L (98-107); Glucose 88 mg/dL (74-99); Phosphorus 3.7 mg/dL (2.5-4.5); Potassium 4.5 mmol/L (3.5-5.1); Sodium 139 mmol/L (137-145)
[2018-08-17] MEDS: PANTOPRAZOLE 40 MG TABLET PO SCH (07:05)
[2018-08-17] MEDS: ASPIRIN 325 MG TAB PO SCH (08:13)
[2018-08-17] MEDS: ENOXAPARIN 40 MG/0.4 ML SYRINGE SQ SCH (08:13)
[2018-08-17] MEDS: METOPROLOL TARTRATE 50 MG TAB PO SCH ×2 (08:13→20:15)
--- NOTE | 2018-08-17 09:35 | P.PN ---
Subjective Progress Note Date: 08/17/18 Principal diagnosis: Ventricular tachycardia This is a pleasant 27-year-old gentleman with a past medical history significant for cardiac arrhythmia in the form of ventricular tachycardia where he received an AICD back in 2015 presented to the hospital complaining of palpitation. The patient was in his usual state of health until yesterday when he was sitting home and suddenly started experiencing palpitation in the chest without any symptoms of dizziness or lightheadedness or syncope. No chest pain or chest discomfort. Because of that he decided to come to the emergency room were in the ER he was found to be in wide-complex tachycardia consistent with V. tach. The heart rate at that point was 150 bpm. The patient received amiodarone without any response and subsequently he was started on lidocaine drip with conversion to normal sinus mechanism. Since then he has been in normal sinus mechanism. He is feeling better. Electrolytes were checked and came in to be unremarkable. The patient was receiving sotalol as an outpatient but unfortunately because of insurance issues he was unable to afford his medications so he was not receiving his home medications for a few weeks now. The cardiac enzymes came in to be slightly abnormal and that is likely secondary to the tachycardia and ventricular tachycardia. The patient did not have any symptoms of chest pain or chest discomfort. On follow-up with the patient today, he is asymptomatic. He continues to be hemodynamically stable. He has no more episodes of ventricular tachycardia. He continues to be on lidocaine drip as well as amiodarone drip. The plan today is to stop the amiodarone drip and start the patient back on sotalol. The echocardiogram revealed mildly impaired LV function was EF around 45%. Objective - Vital Signs Vital signs: Vital Signs Temp 97.4 F L 08/17/18 08:00 Pulse 60 08/17/18 09:00 Resp 17 08/17/18 09:00 BP 132/80 08/17/18 09:00 Pulse Ox 98 08/17/18 09:00 Intake & Output 08/16/18 08/17/18 08/17/18 18:59 06:59 18:59 Intake Total 1973.25 827.5 540 Output Total 1700 1075 650 Balance 273.25 -247.5 -110 Weight 76.2 kg Intake: IV 220 60 .9 220 60 Intake, IV Titration 773.25 127.5 Amount Amiodarone 300 mg In 450 127.5 Dextrose 5% in Water 250 ml @ 0.5 MG/MIN 25 mls/hr IV .Q10H [facility] Rx#: [id number] Amiodarone 360 mg In 25 Dextrose 5% in Water 200 ml @ 1 MG/MIN 33.333 mls/ hr IV .Q6H ONE Rx#: [id number] Lidocaine-D5w Pmx 2G/ 298.25 250Ml 2,000 mg In Dextrose/Water 1 250ml. bag @ 2 MG/MIN 15 mls/hr IV .[id number] COUNT INCLUDES THE [facility] Rx#: [id number] Oral 1200 480 480 Output: Urine 1700 1075 650 Other: Voiding Method Urinal Urinal # Voids 1 1 1 - Constitutional General appearance: Present: no acute distress - Respiratory Respiratory: bilateral: CTA - Cardiovascular Rhythm: regular Heart sounds: normal: S1, S2 - Labs CBC & Chem 7: 08/17/18 04:56 08/17/18 04:56 Labs: Abnormal Lab Results - Last 24 Hours (Table) 08/16/18 Range/Units 08:48 Troponin I 0.401 H* (0.000-0.034) ng/mL Assessment and Plan Assessment: Assessment #1 sustained ventricular tachycardia #2 known ventricular tachycardia #3 status post AICD #4 noncompliance with medications Plan #1 continue the amiodarone drip and continue the lidocaine drip #2 the AICD was interrogated and showed ventricular tachycardia #3 continue the current dose of metoprolol #4 continue the lidocaine drip for now #5 start the patient on sotalol later on today
--- NOTE | 2018-08-17 10:06 | P.PCN ---
Preoperative Diagnosis: ICD interrogation Dual-chamber [employer] ICD implanted for recurrent ventricular tachycardia with underlying arrhythmogenic cardiomyopathy ICD was interrogated The patient has had sustained as well as nonsustained episodes of ventricular tachycardia with clear A-V dissociation He is also had supra ventricular tachycardia with one-to-one conduction consistent with AV akanksha reentry Atrial pacing threshold 0.5 V at 0.5 ms, P waves given 5 mV pacing impedance 410 ohms RV pacing threshold 0.8 V at 0.5 ms R waves 4.8 mV pacing impedance 480 ohms High-voltage impedance 61 ohms Programmed to DDD 50 PPM with a long AV delay to avoid RV pacing 3 zones for tachycardia therapy VT 04/12/1948 5 bpm monitor zone VT to 1 84 bpm with appropriate antitachycardia pacing and cardioversions VF zone at 240 beats a minute with antitachycardia pacing and defibrillation Suggest Compliance with sotalol therapy for suppression of ventricular tachycardia as well as AV akanksha reentry needed
--- NOTE | 2018-08-17 10:16 | P.CRDCN ---
History of Present Illness History of present illness: This is Dr. Robins dictating a consult on this patient The patient was interviewed and examined by me IMPRESSION / ASSESSMENT: Sustained AV akanksha reentrant tachycardia Sustained ventricular tachycardia Arrhythmogenic cardio myopathy Noncompliance with medical treatment . Not taking sotalol as prescribed Noncompliance with medical care in the past at our office PLAN: Stop amiodarone. Stop lidocaine IV magnesium Increase metoprolol to 50 g twice daily Stop sotalol 40 g twice daily and increase to 80 mg twice daily along with metoprolol for now HPI Patient presented with palpitations no syncope no chest pain. He did feel his heart beat out of his chest at work Sudden onset Not taking sotalol for several weeks ROS: No fever chills or rigors, no cough, phlegm or expectoration, no nausea, vomiting or diarrhea, no hematuria, dysuria, no musculoskeletal complaints, no strokes or seizures, no skin lesions. EXAMINATION: Blood pressure 120/74 mmHg pulse rate in the 70s afebrile 97.4F Breath sounds are clear no rhonchi no crackles Heart sounds S1 and S2 are normal no murmurs or gallops no rub Extremities are warm no edema Abdomen soft REVIEW OF LABS, ECG & MEDICAL DATA Hemoglobin 13.6 Potassium was 5.4 yesterday. Today's normal Troponins about 11 abnormal consistent with sustained V. tach Normal renal function Magnesium 2.0 Twelve-lead ECG shows sinus rhythm with QRS fractionation in V1 and in the inferior leads normal ST segments First 12-lead ECG shows ventricular tachycardia with a left bundle branch block morphology 167 beats a minute which is below the VT detection Notching on the downslope of the QRS in V1 and V2 notching noted on all QRS consistent with QRS fractionation Past Medical History Past Medical History: Diabetes Mellitus Additional Past Medical History / Comment(s): per pts pt had v tach) x 1 year ago with cardioversion x 2, past concussion 4 years ago., History of Any Multi-Drug Resistant Organisms: None Reported Past Surgical History: AICD, EPS, Heart Catheterization Additional Past Surgical History / Comment(s): CARDIOVERSION, Past Anesthesia/Blood Transfusion Reactions: No Reported Reaction Type of Cardiac Device: Permanent Pacemaker Device Placement Date:: 07/2015 Past Psychological History: No Psychological Hx Reported Additional Psychological History / Comment(s): . Smoking Status: Never smoker Past Alcohol Use History: None Reported Additional Past Alcohol Use History / Comment(s): Patient is a lifelong nonsmoker, no marijuana or illicit drug use, no alcohol use. Past Drug Use History: None Reported - Past Family History Mother Family Medical History: No Reported History Father Family Medical History: No Reported History Sister(s) Family Medical History: No Reported History Medications and Allergies Home Medications Medication Instructions Recorded Confirmed Type Sotalol [Betapace] 80 mg PO BID 08/16/18 08/16/18 History Allergies Allergy/AdvReac Type Severity Reaction Status Date / Time No Known Allergies Allergy Verified 08/15/18 20:47 Physical Exam Vitals: Vital Signs Temp Pulse Pulse Resp BP Pulse Ox 08/17/18 09:00 60 17 132/80 98 08/17/18 08:00 97.4 F L 77 12 120/74 98 08/17/18 07:00 52 L 15 129/90 08/17/18 06:00 56 L 10 L 115/80 08/17/18 05:00 55 L 12 125/81 08/17/18 04:00 97.6 F 54 L 14 120/79 99 08/17/18 03:00 49 L 11 L 120/83 08/17/18 02:00 51 L 13 118/76 08/17/18 01:00 52 L 12 110/78 08/17/18 00:00 97.6 F 54 L 13 106/68 96 08/16/18 23:00 49 L 14 105/71 08/16/18 22:00 51 L 15 124/87 95 08/16/18 21:00 56 L 17 127/88 08/16/18 20:30 66 9 L 119/77 08/16/18 20:00 98.1 F 61 14 118/76 98 08/16/18 19:30 62 18 125/77 08/16/18 19:00 70 13 121/83 08/16/18 18:45 62 23 121/83 99 08/16/18 18:30 69 39 H 121/65 08/16/18 18:15 62 17 121/65 08/16/18 18:01 66 30 H 130/82 08/16/18 17:46 14 130/82 08/16/18 17:31 74 25 H 125/77 08/16/18 17:15 61 7 L 125/77 08/16/18 17:01 63 17 120/79 08/16/18 16:45 65 14 120/79 08/16/18 16:30 62 0 L 123/84 08/16/18 16:15 68 15 123/84 08/16/18 16:00 60 58 L 9 L 123/83 08/16/18 15:45 73 17 123/83 08/16/18 15:30 64 22 116/83 08/16/18 15:15 61 15 116/83 08/16/18 15:00 58 L 13 114/80 08/16/18 14:45 61 13 114/80 08/16/18 14:30 52 L 13 114/80 08/16/18 14:15 53 L 18 107/74 08/16/18 14:00 54 L 18 112/81 08/16/18 13:45 56 L 8 L 112/81 08/16/18 13:30 57 L 14 111/80 08/16/18 13:15 58 L 19 111/80 08/16/18 13:00 53 L 13 112/83 08/16/18 12:45 65 9 L 112/83 08/16/18 12:30 60 8 L 107/65 08/16/18 12:15 53 L 14 107/65 08/16/18 12:00 53 L 17 115/82 08/16/18 11:45 56 L 17 115/82 08/16/18 11:30 57 L 8 L 122/81 08/16/18 11:15 56 L 18 122/81 08/16/18 11:00 70 19 117/83 08/16/18 10:45 63 27 H 117/83 08/16/18 10:30 75 8 L 114/76 Intake and Output 08/16/18 08/17/18 08/17/18 22:59 06:59 14:59 Intake Total 1172.5 160 790 Output Total 500 575 650 Balance 672.5 -415 140 Intake: IV 60 160 60 .9 60 160 60 Intake, IV Titration 152.5 250 Amount Amiodarone 300 mg In 127.5 Dextrose 5% in Water 250 ml @ 0.5 MG/MIN 25 mls/hr IV .Q10H [facility] Rx#: [id number] Amiodarone 360 mg In 25 Dextrose 5% in Water 200 ml @ 1 MG/MIN 33.333 mls/ hr IV .Q6H [facility] Rx#: [id number] Lidocaine-D5w Pmx 2G/ 250 250Ml 2,000 mg In Dextrose/Water 1 250ml. bag @ 2 MG/MIN 15 mls/hr IV .[id number] [facility] Rx#: [id number] Oral 960 480 Output: Urine 500 575 650 Other: Voiding Method Urinal Urinal Urinal # Voids 1 1 1 Weight 76.2 kg Results 08/17/18 04:56 08/17/18 04:56 CBC 08/17/18 Range/Units 04:56 WBC 8.9 (3.8-10.6) k/uL RBC 4.85 (4.30-5.90) m/uL Hgb 13.6 (13.0-17.5) gm/dL Hct 41.2 (39.0-53.0) % Plt Count 194 (150-450) k/uL Comprehensive Metabolic Panel 08/17/18 Range/Units 04:56 Sodium 139 (137-145) mmol/L Potassium 4.5 (3.5-5.1) mmol/L Chloride 104 (98-107) mmol/L Carbon Dioxide 28 (22-30) mmol/L BUN 17 (9-20) mg/dL Creatinine 1.21 (0.66-1.25) mg/dL Glucose 88 (74-99) mg/dL Calcium 9.4 (8.4-10.2) mg/dL Current Medications Generic Name Dose Route Start Last Admin Trade Name Freq PRN Reason Stop Dose Admin Acetaminophen 650 mg 08/15/18 23:38 Tylenol Tab PO Q4HR PRN Fever and/or Mild Pain Aspirin 325 mg 08/16/18 09:00 08/17/18 08:13 Aspirin PO 325 mg DAILY [facility] Administration Enoxaparin Sodium 40 mg 08/16/18 09:00 08/17/18 08:13 Lovenox SQ 40 mg DAILY [facility] Administration Metoprolol Tartrate 50 mg 08/16/18 21:00 08/17/18 08:13 Lopressor PO 50 mg BID [facility] Administration Pantoprazole Sodium 40 mg 08/17/18 07:30 08/17/18 07:05 Protonix PO 40 mg AC-BRKFST JO[facility]NA Administration Sotalol HCl 40 mg 08/17/18 18:00 Betapace PO 0600,1800 [facility] Intake and Output 08/16/18 08/17/18 08/17/18 22:59 06:59 14:59 Intake Total 1172.5 160 790 Output Total 500 575 650 Balance 672.5 -415 140 Intake: IV 60 160 60 .9 60 160 60 Intake, IV Titration 152.5 250 Amount Amiodarone 300 mg In 127.5 Dextrose 5% in Water 250 ml @ 0.5 MG/MIN 25 mls/hr IV .Q10H [facility] Rx#: [id number] Amiodarone 360 mg In 25 Dextrose 5% in Water 200 ml @ 1 MG/MIN 33.333 mls/ hr IV .Q6H [facility] Rx#: [id number] Lidocaine-D5w Pmx 2G/ 250 250Ml 2,000 mg In Dextrose/Water 1 250ml. bag @ 2 MG/MIN 15 mls/hr IV .[id number] [facility] Rx#: [id number] Oral 960 480 Output: Urine 500 575 650 Other: Voiding Method Urinal Urinal Urinal # Voids 1 1 1 Weight 76.2 kg 08/17/18 04:56 08/17/18 04:56
--- NOTE | 2018-08-17 11:04 | P.PN ---
Subjective Progress Note Date: 08/17/18 Principal diagnosis: Wide-complex tachycardia This is a 27-year-old white male with known history of ventricular tachycardia for many years. Patient had previous AICD in 2016, and has been controlled with antiarrhythmic agents given to him by Dr. Alejo. Patient had some issues with the cost of the medication, and he stopped taking it. Presented to the ER yesterday with mostly symptoms of palpitations without any dizziness lightheadedness or syncope. He had no chest pain, in the ER, the patient was found to have wide complex tachycardia consistent with ventricular tachycardia. Heart rate was 150/m. Patient received amiodarone without any response, he was later placed on lidocaine drip in addition to amiodarone. Patient converted to a sinus rhythm, admitted to the ICU, and I was asked to see him on consultation. During my evaluation, patient was relatively asymptomatic, he was in normal sinus rhythm, had no palpitations, no chest pain, no shortness of breath, he was already seen by cardiology, and he is yet to be seen by Dr. Alejo who was consulted by Dr. Sesay. According to the patient, he was maintained on sotalol, and he couldn't afford buying it. Reevaluated today on 08/17/2018, patient remains in the ICU, remains on amiodarone drip and lidocaine drip, he is in sinus rhythm, relatively asymptomatic. Hemodynamically stable. Denies any chest pain no cough no wheezing no shortness of breath no palpitations. He was seen by Dr. Alejo, and he recommended stopping amiodarone, stopping lidocaine, recommended IV magnesium, increasing metoprolol to 50 mg twice a day, and starting sotalol 40 mg twice a day and to be increased to 80 mg twice a day. Labs today were relatively unremarkable including CBC and basic metabolic profile as well as a left twice. Objective - Vital Signs Vital signs: Vital Signs Temp 97.4 F L 08/17/18 08:00 Pulse 60 08/17/18 09:00 Resp 17 08/17/18 09:00 BP 132/80 08/17/18 09:00 Pulse Ox 98 08/17/18 09:00 Intake & Output 08/16/18 08/17/18 08/17/18 18:59 06:59 18:59 Intake Total 1973.25 827.5 790 Output Total 1700 1075 650 Balance 273.25 -247.5 140 Weight 76.2 kg Intake: IV 220 60 .9 220 60 Intake, IV Titration 773.25 127.5 250 Amount Amiodarone 300 mg In 450 127.5 Dextrose 5% in Water 250 ml @ 0.5 MG/MIN 25 mls/hr IV .Q10H [facility] Rx#: [id number] Amiodarone 360 mg In 25 Dextrose 5% in Water 200 ml @ 1 MG/MIN 33.333 mls/ hr IV .Q6H [facility] Rx#: [id number] Lidocaine-D5w Pmx 2G/ 298.25 250 250Ml 2,000 mg In Dextrose/Water 1 250ml. bag @ 2 MG/MIN 15 mls/hr IV .[id number] [facility] Rx#: [id number] Oral 1200 480 480 Output: Urine 1700 1075 650 Other: Voiding Method Urinal Urinal # Voids 1 1 1 - Exam Physical Exam: Revealed a 27-year-old white male in no distress. Head: Atraumatic, normocephalic. HEENT:[Neck is supple.] [No neck masses.] [No thyromegaly.] [No JVD.] Chest: [Clear throughout, no crackles, no rhonchi, no wheezes.] Cardiac Exam: [Normal S1 and S2, no S3 gallop, no murmur.] Abdomen: [Soft, nontender, no megaly, no rebound, no guarding, normal bowel sounds.] Extremities: [No clubbing, no edema, no cyanosis.] Neurological Exam: [No focal neurologic deficit.] Psychiatric: Normal mood affect and mental status examination Skin: No rashes. Lymphatics: No lymphadenopathy. Musculoskeletal: No limitation in range of motion as, no deformities. - Labs CBC & Chem 7: 08/17/18 04:56 08/17/18 04:56 Assessment and Plan Assessment: Impression: 1 wide-complex tachycardia with elevated troponins, Recommendation: Continue treatment plan as per cardiology and as outlined by Dr. Alejo, we will sign off for now and see the patient on when necessary basis. Time with Patient: Less than 30
[2018-08-17] MEDS: MAGNESIUM SULFATE-D5W PMX 1 GM in DEXTROSE/WATER 1 100ML.BAG IVPB SCH ×2 (11:21→12:30)
--- NOTE | 2018-08-17 14:17 | P.PN ---
Subjective Progress Note Date: 08/17/18 This is a 27 year old male patient without primary care physician but follow-up with Dr. Tee in the past with history of AICD placement for ventricular tachycardia in 2016. Patient gives history of feeling palpitations. He denies any syncopal episodes. No history of CVA. He denies any shortness of breath, chest pain no abdominal pain. He states he has felt a shock from the AICD but it was 2 years ago. Patient came into [facility] emergency center where he was found have a wide complex tachycardia consistent with V. tach. It was at 150 bpm. Patient was started on lidocaine drip and converted to normal sinus rhythm. Patient is now seen in the intensive care unit and his pacing maker has been interrogated this morning. He has been seen in consultation by cardiology with plan for continuation of lidocaine drip and amiodarone drip and metoprolol was started by mouth. Patient to be seen by Dr. Aceves as well. Echocardiogram reveals EF of 45-50% with mild concentric left hypertrophy, mild tricuspid regurgitation. 08/17: Patient remains in the intensive care unit. The patient has been seen by Dr. Liang in and underwent ICD interrogation that found clear AV dissociation and supraventricular tachycardia with 11 conduction consistent with AV akanksha reentry. He plans to stop amiodarone and lidocaine. Provide IV magnesium replacement. Increase Lopressor to 50 mg twice daily and increase sotalol that was just initiated to 80 mg twice daily. Patient denies having any chest pain, shortness of breath, abdominal pain, lightheadedness or dizziness. He is anxious to be discharged and is asking to go home first thing in the morning. Patient will be reevaluated in the morning pending cardiology approval for discharge.. Review of Systems Constitutional: Denies anorexia, Denies chills, Denies fatigue, Denies fever, Denies lethargy, Denies malaise, Denies poor appetite Eyes: denies blurred vision, denies pain Ears, nose, mouth and throat: Denies dysphagia, Denies headache, Denies nasal congestion, Denies nasal discharge, Denies sore throat, Denies vertigo Cardiovascular: Denies palpitations, Denies chest pain, Denies dyspnea on exertion, Denies edema, Denies shortness of breath, Denies syncope Respiratory: Denies cough, Denies cough with sputum, Denies dyspnea, Denies excessive sputum, Denies hemoptysis, Denies home oxygen, Denies wheezing Gastrointestinal: Denies abdominal pain, Denies diarrhea, Denies loss of appetite, Denies nausea, Denies vomiting Genitourinary: Denies dysuria Musculoskeletal: Denies frequent falls, Denies gait dysfunction, Denies muscle weakness, Denies myalgias Integumentary: Denies pruritus, Denies rash, Denies wounds Neurological: Denies aphasia, Denies change in mentation, Denies change in speech, Denies gait dysfunction, Denies headaches, Denies numbness, Denies seizures, Denies vertigo, Denies weakness Psychiatric: Denies anxiety, Denies depression Endocrine: Denies fatigue, Denies weight change Objective - Vital Signs Vital signs: Vital Signs Temp 97.4 F L 08/17/18 08:00 Pulse 60 08/17/18 09:00 Resp 17 08/17/18 09:00 BP 132/80 08/17/18 09:00 Pulse Ox 98 08/17/18 09:00 Intake & Output 08/16/18 08/17/18 08/17/18 18:59 06:59 18:59 Intake Total 1973.25 827.5 790 Output Total 1700 1075 650 Balance 273.25 -247.5 140 Weight 76.2 kg Intake: IV 220 60 .9 220 60 Intake, IV Titration 773.25 127.5 250 Amount Amiodarone 300 mg In 450 127.5 Dextrose 5% in Water 250 ml @ 0.5 MG/MIN 25 mls/hr IV .Q10H [facility] Rx#: [id number] Amiodarone 360 mg In 25 Dextrose 5% in Water 200 ml @ 1 MG/MIN 33.333 mls/ hr IV .Q6H [facility] Rx#: [id number] Lidocaine-D5w Pmx 2G/ 298.25 250 250Ml 2,000 mg In Dextrose/Water 1 250ml. bag @ 2 MG/MIN 15 mls/hr IV .[id number] [facility] Rx#: [id number] Oral 1200 480 480 Output: Urine 1700 1075 650 Other: Voiding Method Urinal Urinal # Voids 1 1 1 - Exam Gen: This is a 27-year-old male. He is resting in the ICU bed and appears to be comfortable and in no acute distress. HEENT: Head is atraumatic, normocephalic. Pupils equal, round. Sclerae is anicteric. Conjunctiva pink. NECK: Supple. No JVD. No lymphadenopathy. No thyromegaly. LUNGS: Clear to auscultation. No wheezes or rhonchi. No intercostal retractions. HEART: Regular rate and rhythm. No murmur. ABDOMEN: Soft. Bowel sounds are present. No masses. No tenderness. EXTREMITIES: No pedal edema. No calf tenderness. Dorsalis pedis +2 bilaterally. NEUROLOGICAL: Patient is awake, alert and oriented x3. Cranial nerves 2 through 12 are grossly intact. - Labs CBC & Chem 7: 08/17/18 04:56 08/17/18 04:56 Labs: Abnormal Lab Results - Last 24 Hours (Table) 08/16/18 Range/Units 08:48 Troponin I 0.401 H* (0.000-0.034) ng/mL Assessment and Plan Plan: 1. Wide complex tachycardia. Cardiology consult appreciated. Consult with Dr. Robins appreciated. Amiodarone and lidocaine drips discontinued. Metoprolol increased to 50 mg twice daily and sotalol at 80 mg twice daily. 2. History of ventricular tachycardia status post AICD. 3. Arrhythmia genic cardiomyopathy. 4. DVT prophylaxis. Lovenox. 5. GI prophylaxis. Protonix. Discharge plan: Home tomorrow Impression and plan of care have been directed as dictated by the signing physician. Yulissa Das nurse practitioner acting as scribe for signing physician.
[2018-08-17] MEDS: SOTALOL 80 MG TAB PO SCH (18:42)
[2018-08-18] MEDS: SOTALOL 80 MG TAB PO SCH ×2 (06:07→18:57)
[2018-08-18] MEDS: PANTOPRAZOLE 40 MG TABLET PO SCH (06:07)
[2018-08-18 06:27] LABS: Basophils % (A) 1 %; Eosinophils # (A) 0.2 k/uL (0-0.7); Eosinophils % (A) 3 %; HCT 42.5 % (39.0-53.0); HGB 13.6 gm/dL (13.0-17.5); Lymphocytes # (A) 1.4 k/uL (1.0-4.8); Lymphocytes % (A) 24 %; MCH 27.4 pg (25.0-35.0); MCHC 32.1 g/dL (31.0-37.0); MCV 85.3 fL (80.0-100.0); Mean Platelet Volume 6.9; Monocytes # (A) 0.4 k/uL (0-1.0); Monocytes % (A) 7 %; Neutrophils # (A) 3.8 k/uL (1.3-7.7); Neutrophils % (A) 63 %; Platelet Count 179 k/uL (150-450); RBC 4.98 m/uL (4.30-5.90); RDW 13.7 % (11.5-15.5)
[2018-08-18 06:39] LABS: Anion Gap 6 mmol/L; Blood Urea Nitrogen 19 mg/dL (9-20); Calcium 9.4 mg/dL (8.4-10.2); Carbon Dioxide 29 mmol/L (22-30); Chloride 105 mmol/L (98-107); Glucose 89 mg/dL (74-99); Potassium 4.6 mmol/L (3.5-5.1); Sodium 140 mmol/L (137-145)
[2018-08-18] MEDS: ASPIRIN 325 MG TAB PO SCH (09:06)
[2018-08-18] MEDS: ENOXAPARIN 40 MG/0.4 ML SYRINGE SQ SCH (09:06)
[2018-08-18] MEDS: METOPROLOL TARTRATE 50 MG TAB PO SCH ×2 (09:06→21:51)
--- NOTE | 2018-08-18 12:16 | P.PN ---
Subjective Progress Note Date: 08/18/18 Principal diagnosis: Ventricular tachycardia This is a pleasant 27-year-old gentleman with a past medical history significant for cardiac arrhythmia in the form of ventricular tachycardia where he received an AICD back in 2015 presented to the hospital complaining of palpitation. The patient was in his usual state of health until yesterday when he was sitting home and suddenly started experiencing palpitation in the chest without any symptoms of dizziness or lightheadedness or syncope. No chest pain or chest discomfort. Because of that he decided to come to the emergency room were in the ER he was found to be in wide-complex tachycardia consistent with V. tach. The heart rate at that point was 150 bpm. The patient received amiodarone without any response and subsequently he was started on lidocaine drip with conversion to normal sinus mechanism. Since then he has been in normal sinus mechanism. He is feeling better. Electrolytes were checked and came in to be unremarkable. The patient was receiving sotalol as an outpatient but unfortunately because of insurance issues he was unable to afford his medications so he was not receiving his home medications for a few weeks now. The cardiac enzymes came in to be slightly abnormal and that is likely secondary to the tachycardia and ventricular tachycardia. The patient did not have any symptoms of chest pain or chest discomfort. On follow-up with the patient today, August 182018, he remains asymptomatic from the cardiac standpoint. He remains in normal sinus mechanism. No more episodes of SVT. Currently he is on metoprolol as well as sotalol. He is in process to be seen by Dr. Robins and likely he is going to be discharged later on today. The echocardiogram showed an EF of 45%. Objective - Vital Signs Vital signs: Vital Signs Temp 98.1 F 08/18/18 08:00 Pulse 60 08/18/18 08:00 Resp 16 08/18/18 08:00 BP 114/63 08/18/18 08:00 Pulse Ox 98 08/18/18 08:00 Intake & Output 08/17/18 08/18/18 08/18/18 18:59 06:59 18:59 Intake Total 1340 600 Output Total 1150 Balance 190 600 Weight 75.2 kg 74.8 kg Intake: IV 260 .9 60 Magnesium Sulfate-D5w Pmx 200 1 gm In Dextrose/Water 1 100ml.bag @ 100 mls/hr IVPB Q1H [facility] Rx#: [id number] Intake, IV Titration 250 Amount Lidocaine-D5w Pmx 2G/ 250 250Ml 2,000 mg In Dextrose/Water 1 250ml. bag @ 2 MG/MIN 15 mls/hr IV .[id number] [facility] Rx#: [id number] Oral 830 600 Output: Urine 1150 Other: Voiding Method Urinal Toilet # Voids 1 1 1 # Bowel Movements 0 - Constitutional General appearance: Present: no acute distress - Respiratory Respiratory: bilateral: CTA - Cardiovascular Rhythm: regular Heart sounds: normal: S1, S2 - Labs CBC & Chem 7: 08/18/18 05:48 08/18/18 05:48 Assessment and Plan Assessment: Assessment #1 sustained ventricular tachycardia #2 known ventricular tachycardia #3 status post AICD #4 noncompliance with medications Plan #1 continue the metoprolol and sotalol #2 possible discharge in the next 24 hour
[2018-08-18] MEDS ORDERED: SOTALOL 80 MG TAB PO SCH (12:45)
[2018-08-18] MEDS ORDERED: SOTALOL 80 MG TAB PO STA (12:46)
--- NOTE | 2018-08-18 13:40 | P.PN ---
Subjective Progress Note Date: 08/18/18 This is a 27 year old male patient without primary care physician but follow-up with Dr. Tee in the past with history of AICD placement for ventricular tachycardia in 2016. Patient gives history of feeling palpitations. He denies any syncopal episodes. No history of CVA. He denies any shortness of breath, chest pain no abdominal pain. He states he has felt a shock from the AICD but it was 2 years ago. Patient came into [facility] emergency center where he was found have a wide complex tachycardia consistent with V. tach. It was at 150 bpm. Patient was started on lidocaine drip and converted to normal sinus rhythm. Patient is now seen in the intensive care unit and his pacing maker has been interrogated this morning. He has been seen in consultation by cardiology with plan for continuation of lidocaine drip and amiodarone drip and metoprolol was started by mouth. Patient to be seen by Dr. Robins as well. Echocardiogram reveals EF of 45-50% with mild concentric left hypertrophy, mild tricuspid regurgitation. 08/17: Patient remains in the intensive care unit. The patient has been seen by Dr. Liang in and underwent ICD interrogation that found clear AV dissociation and supraventricular tachycardia with 11 conduction consistent with AV akanksha re entry. He plans to stop amiodarone and lidocaine. Provide IV magnesium replacement. Increase Lopressor to 50 mg twice daily and increase sotalol that was just initiated to 80 mg twice daily. Patient denies having any chest pain, shortness of breath, abdominal pain, lightheadedness or dizziness. He is anxious to be discharged and is asking to go home first thing in the morning. Patient will be reevaluated in the morning pending cardiology approval for discharge.. 08/18: Patient is now seen on the selective care stepdown unit. The patient denies any symptoms. He denies any chest pain shortness of breath, lightheadedness, dizziness, palpitations. He is currently on metoprolol 50 mg twice daily, sotalol 80 mg twice daily to start this evening. The plan is to monitor him overnight and possible discharge by tomorrow. Review of Systems Constitutional: Denies anorexia, Denies chills, Denies fatigue, Denies fever, Denies lethargy, Denies malaise, Denies poor appetite Eyes: denies blurred vision, denies pain Ears, nose, mouth and throat: Denies dysphagia, Denies headache, Denies nasal congestion, Denies nasal discharge, Denies sore throat, Denies vertigo Cardiovascular: Denies palpitations, Denies chest pain, Denies dyspnea on exertion, Denies edema, Denies shortness of breath, Denies syncope Respiratory: Denies cough, Denies cough with sputum, Denies dyspnea, Denies excessive sputum, Denies hemoptysis, Denies home oxygen, Denies wheezing Gastrointestinal: Denies abdominal pain, Denies diarrhea, Denies loss of appetite, Denies nausea, Denies vomiting Genitourinary: Denies dysuria Musculoskeletal: Denies frequent falls, Denies gait dysfunction, Denies muscle weakness, Denies myalgias Integumentary: Denies pruritus, Denies rash, Denies wounds Neurological: Denies aphasia, Denies change in mentation, Denies change in speech, Denies gait dysfunction, Denies headaches, Denies numbness, Denies seizures, Denies vertigo, Denies weakness Psychiatric: Denies anxiety, Denies depression Objective - Vital Signs Vital signs: Vital Signs Temp 98.1 F 08/18/18 08:00 Pulse 60 08/18/18 08:00 Resp 16 08/18/18 08:00 BP 114/63 08/18/18 08:00 Pulse Ox 98 08/18/18 08:00 Intake & Output 08/17/18 08/18/18 08/18/18 18:59 06:59 18:59 Intake Total 1340 600 Output Total 1150 Balance 190 600 Weight 75.2 kg 74.8 kg Intake: IV 260 .9 60 Magnesium Sulfate-D5w Pmx 200 1 gm In Dextrose/Water 1 100ml.bag @ 100 mls/hr IVPB Q1H [facility] Rx#: [id number] Intake, IV Titration 250 Amount Lidocaine-D5w Pmx 2G/ 250 250Ml 2,000 mg In Dextrose/Water 1 250ml. bag @ 2 MG/MIN 15 mls/hr IV .[id number] [facility] Rx#: [id number] Oral 830 600 Output: Urine 1150 Other: Voiding Method Urinal Toilet # Voids 1 1 1 # Bowel Movements 0 - Exam Gen: This is a 27-year-old male. He is sitting in chair in his room and appears to be comfortable and in no acute distress. HEENT: Head is atraumatic, normocephalic. Pupils equal, round. Sclerae is anicteric. Conjunctiva pink. NECK: Supple. No JVD. No lymphadenopathy. No thyromegaly. LUNGS: Clear to auscultation. No wheezes or rhonchi. No intercostal retractions. HEART: Regular rate and rhythm. No murmur. ABDOMEN: Soft. Bowel sounds are present. No masses. No tenderness. EXTREMITIES: No pedal edema. No calf tenderness. Dorsalis pedis +2 bilaterally. NEUROLOGICAL: Patient is awake, alert and oriented x3. Cranial nerves 2 through 12 are grossly intact. - Labs CBC & Chem 7: 08/18/18 05:48 08/18/18 05:48 Assessment and Plan Plan: 1. Wide complex tachycardia. Cardiology consult appreciated. Consult with Dr. Robins appreciated. Amiodarone and lidocaine drips discontinued. Metoprolol 50 mg twice daily and sotalol 80 mg twice daily. 2. History of ventricular tachycardia status post AICD. 3. Arrhythmia genic cardiomyopathy. 4. DVT prophylaxis. Lovenox. 5. GI prophylaxis. Protonix. Discharge plan: Home tomorrow Impression and plan of care have been directed as dictated by the signing physician. Yulissa Das nurse practitioner acting as scribe for signing physician.
--- NOTE | 2018-08-18 13:50 | P.PN ---
Subjective This is a pleasant 27-year-old male past medical history significant for her arrhythmogenic cardiomyopathy. He is seen and examined resting comfortably in bed in no acute distress. He denies symptoms of chest discomfort, shortness of breath, dizziness or palpitations. He states he has been up and walking in the halls and has remained manic. Telemetry tracings have been reviewed with no evidence of acute arrhythmia. Laboratory data reviewed, WBC 6.0, hemoglobin 13.6, platelets 179, sodium 140, potassium 4.6, creatinine 1.21. Blood pressure 110/65 heart rate 50 afebrile maintaining oxygen saturation on room air. GENERAL: Well-appearing, well-nourished and in no acute distress. NECK: Supple without JVD or thyromegaly. LUNGS: Breath sounds clear to auscultation bilaterally. Respiration equal and unlabored. No wheezes, rales or rhonchi. HEART: Regular rate and rhythm without murmurs, rubs or gallops. S1 and S2 heard. EXTREMITIES: Normal range of motion, no edema. No clubbing or cyanosis. Peripheral pulses intact. ASSESSMENT Sustained AV akanksha reentrant tachycardia Sustained ventricular tachycardia Arrhythmogenic cardiomyopathy History of AICD placement Noncompliance with medical treatment and outpatient follow-up PLAN Continue sotalol 80 mg twice a day and metoprolol 50 mg twice a day. Continue to monitor closely on telemetry for another 24 hours. Repeat EKG in the morning to assess for QT prolongation. This has been explained to the patient and he is agreeable with the current plan. Nurse Practitioner note has been reviewed, I agree with a documented findings and plan of care. Patient was seen and examined. Objective - Vital Signs Vital signs: Vital Signs Temp 97.7 F 08/18/18 12:00 Pulse 50 L 08/18/18 12:00 Resp 16 08/18/18 12:00 BP 110/65 08/18/18 12:00 Pulse Ox 100 08/18/18 12:00 Intake & Output 08/17/18 08/18/18 08/18/18 18:59 06:59 18:59 Intake Total 1340 600 Output Total 1150 Balance 190 600 Weight 75.2 kg 74.8 kg Intake: IV 260 .9 60 Magnesium Sulfate-D5w Pmx 200 1 gm In Dextrose/Water 1 100ml.bag @ 100 mls/hr IVPB Q1H [facility] Rx#: [id number] Intake, IV Titration 250 Amount Lidocaine-D5w Pmx 2G/ 250 250Ml 2,000 mg In Dextrose/Water 1 250ml. bag @ 2 MG/MIN 15 mls/hr IV .[id number] [facility] Rx#: [id number] Oral 830 600 Output: Urine 1150 Other: Voiding Method Urinal Toilet Toilet # Voids 1 1 1 # Bowel Movements 0 - Labs CBC & Chem 7: 08/18/18 05:48 08/18/18 05:48
[2018-08-19] MEDS: SOTALOL 80 MG TAB PO SCH (06:18)
[2018-08-19] MEDS: PANTOPRAZOLE 40 MG TABLET PO SCH (06:18)
[2018-08-19 07:51] LABS: Basophils % (A) 1 %; Eosinophils # (A) 0.2 k/uL (0-0.7); Eosinophils % (A) 3 %; HCT 45.7 % (39.0-53.0); HGB 15.1 gm/dL (13.0-17.5); Lymphocytes # (A) 1.6 k/uL (1.0-4.8); Lymphocytes % (A) 27 %; MCH 28.4 pg (25.0-35.0); MCHC 33.1 g/dL (31.0-37.0); MCV 85.8 fL (80.0-100.0); Monocytes # (A) 0.5 k/uL (0-1.0); Monocytes % (A) 8 %; Neutrophils # (A) 3.5 k/uL (1.3-7.7); Neutrophils % (A) 58 %; Platelet Count 207 k/uL (150-450); RBC 5.33 m/uL (4.30-5.90); RDW 13.2 % (11.5-15.5); WBC 5.9 k/uL (3.8-10.6)
[2018-08-19 08:01] LABS: Anion Gap 7 mmol/L; Blood Urea Nitrogen 19 mg/dL (9-20); Calcium 9.8 mg/dL (8.4-10.2); Carbon Dioxide 31 mmol/L (22-30); Chloride 102 mmol/L (98-107); Glucose 86 mg/dL (74-99); Potassium 4.9 mmol/L (3.5-5.1); Sodium 140 mmol/L (137-145)
[2018-08-19] MEDS ORDERED: ASPIRIN 81 MG PO SCH (09:00)
[2018-08-19] MEDS: ENOXAPARIN 40 MG/0.4 ML SYRINGE SQ SCH (09:55)
--- NOTE | 2018-08-19 10:01 | P.PN ---
Subjective This is a pleasant 27-year-old male past medical history significant for her arrhythmogenic cardiomyopathy. He is seen and examined sitting up in bed in no acute distress. He denies chest pain, shortness of breath, palpitations or dizziness. Repeat EKG this morning was reviewed and QT interval is 460 milliseconds. Blood pressure 127/65 heart rate 60 afebrile maintaining oxygen saturation on room air. Laboratory data reviewed, WBC 5.9, hemoglobin 15.1, platelets 207, sodium 140, potassium 4.9, creatinine 1.04. Telemetry tracings are reviewed and unremarkable. GENERAL: Well-appearing, well-nourished and in no acute distress. NECK: Supple without JVD or thyromegaly. LUNGS: Breath sounds clear to auscultation bilaterally. Respiration equal and unlabored. No wheezes, rales or rhonchi. HEART: Regular rate and rhythm without murmurs, rubs or gallops. S1 and S2 heard. EXTREMITIES: Normal range of motion, no edema. No clubbing or cyanosis. Peripheral pulses intact. ASSESSMENT Sustained AV akanksha reentrant tachycardia Sustained ventricular tachycardia Arrhythmogenic cardiomyopathy History of AICD placement Noncompliance with medical treatment and outpatient follow-up PLAN Continue sotalol 80 mg twice a day and decrease metoprolol 25 mg twice a day. Stable for discharge from a cardiac perspective. Compliance with medications and close follow up was discussed and recommended. Nurse Practitioner note has been reviewed, I agree with a documented findings and plan of care. Patient was seen and examined. Objective - Vital Signs Vital signs: Vital Signs Temp 98.0 F 08/19/18 04:00 Pulse 60 08/19/18 04:00 Resp 17 08/19/18 04:00 BP 127/65 08/19/18 04:00 Pulse Ox 95 08/19/18 04:00 Intake & Output 08/18/18 08/19/18 08/19/18 18:59 06:59 18:59 Intake Total 840 800 480 Balance 840 800 480 Weight 74.5 kg Intake: Oral 840 800 480 Other: Voiding Method Toilet Toilet # Voids 0 2 # Bowel Movements 0 - Labs CBC & Chem 7: 08/19/18 06:58 08/19/18 06:58 Labs: Abnormal Lab Results - Last 24 Hours (Table) 08/19/18 Range/Units 06:58 Carbon Dioxide 31 H (22-30) mmol/L
[2018-08-19 10:05] VITALS: BP 119/63; PULSE 52; RESP 16; TEMP 98
[2018-08-19] MEDS: METOPROLOL TARTRATE 50 MG TAB PO SCH (10:20)
--- NOTE | 2018-08-19 13:07 | P.DS ---
Providers Date of admission: 08/15/18 23:40 Expected date of discharge: 08/19/18 Attending physician: Donavan Toro MD Consults: 08/15/18 23:38 Consult Physician Stat Consulting Provider: Fahad Gray Consult Reason/Comments: icu mgmt Do you want consulting provider notified?: Already Contacted Consult Physician Stat Consulting Provider: Isaiah Stanley Consult Reason/Comments: wide complex tachycardia Do you want consulting provider notified?: Already Contacted 08/16/18 06:45 Consult Physician Routine Consulting Provider: Yobany Robins Consult Reason/Comments: refractory ventricular tachycardia Do you want consulting provider notified?: Yes Primary care physician: Nmpatricia Galion Hospital Course: This is a 27 year old male patient without primary care physician but follow-up with Dr. Tee in the past with history of AICD placement for ventricular tachycardia in 2016. Patient gives history of feeling palpitations. He denies any syncopal episodes. No history of CVA. He denies any shortness of breath, chest pain no abdominal pain. He states he has felt a shock from the AICD but it was 2 years ago. Patient came into [facility] emergency center where he was found have a wide complex tachycardia consistent with V. tach. It was at 150 bpm. Patient was started on lidocaine drip and converted to normal sinus rhythm. Patient is now seen in the intensive care unit and his pacing maker has been interrogated this morning. He has been seen in consultation by cardiology with plan for continuation of lidocaine drip and amiodarone drip and metoprolol was started by mouth. Patient to be seen by Dr. Robins as well. Echocardiogram reveals EF of 45-50% with mild concentric left hypertrophy, mild tricuspid regurgitation. 08/17: Patient remains in the intensive care unit. The patient has been seen by Dr. Liang in and underwent ICD interrogation that found clear AV dissociation and supraventricular tachycardia with 11 conduction consistent with AV akanksha reentry. He plans to stop amiodarone and lidocaine. Provide IV magnesium replacement. Increase Lopressor to 50 mg twice daily and increase sotalol that was just initiated to 80 mg twice daily. Patient denies having any chest pain, shortness of breath, abdominal pain, lightheadedness or dizziness. He is anxious to be discharged and is asking to go home first thing in the morning. Patient will be reevaluated in the morning pending cardiology approval for discharge.. 08/18: Patient is now seen on the selective care stepdown unit. The patient lisandro es any symptoms. He denies any chest pain shortness of breath, lightheadedness, dizziness, palpitations. He is currently on metoprolol 50 mg twice daily, sotalol 80 mg twice daily to start this evening. The plan is to monitor him overnight and possible discharge by tomorrow. 08/19: Patient has been cleared for discharge by Dr. Robins with recommendations for metoprolol decreased to 25 mg twice daily and continue sotalol 80 mg twice daily. Arrangements have been made for him to follow up with [facility] and patient was provided a business card for Dr. Toro if needed. Patient will be discharged home today in stable condition. Discharge diagnoses: 1. Wide complex tachycardia. 2. History of ventricular tachycardia status post AICD. 3. Arrhythmogenic cardiomyopathy. Discharge plan: Home Impression and plan of care have been directed as dictated by the signing physician. Yulissa Das nurse practitioner acting as scribe for signing physician. Patient Condition at Discharge: Good Plan - Discharge Summary Discharge Rx Participant: Yes New Discharge Prescriptions: New Metoprolol Tartrate [Lopressor] 25 mg PO BID #180 tab Continue Sotalol [Betapace] 80 mg PO BID #180 tab Discharge Medication List Metoprolol Tartrate [Lopressor] 25 mg PO BID #180 tab 08/19/18 [Rx] Sotalol [Betapace] 80 mg PO BID #180 tab 08/19/18 [Rx] Activity/Diet/Wound Care/Special Instructions: Appointment at [facility] - August 25 @7:30 am. - please bring your photo ID - [phone] Please fax discharge med list to [facility] - [phone] Patient will need indigent funds for new meds at discharge - completed indigent fund form is in his chart Discharge Disposition: HOME SELF-CARE
[2018-08-19] MEDS ORDERED: METOPROLOL TARTRATE 25 MG TAB PO SCH (21:00)
== END 2018-08-19 11:33 | disposition home or self-care (01) | DRG 309 ==
LOC: EC 20:35 → 2SICU 23:40 → 3SCARD 08-17 18:44
PROVIDERS: ADMIT Internal Medicine; ATTEND Internal Medicine
PROC: 4B02XTZ Measurement of Cardiac Defibrillator, External Approach (ICD-10-PCS; principal; 2018-08-17)
DX: I47.2 Ventricular tachycardia (principal); I42.8 Other cardiomyopathies; I47.1 Supraventricular tachycardia; R74.8 Abnormal levels of other serum enzymes; E11.9 Type 2 diabetes mellitus without complications; I44.7 Left bundle-branch block, unspecified; T44.7X6A Underdosing of beta-adrenoreceptor antagonists, initial encounter; I45.89 Other specified conduction disorders; Z79.899 Other long term (current) drug therapy; Z87.820 Personal history of traumatic brain injury; Z95.810 Presence of automatic (implantable) cardiac defibrillator; Z91.14 Patient's other noncompliance with medication regimen; Z91.120 Patient's intentional underdosing of medication regimen due to financial hardship
CPT/HCPCS: 36415; 71046; 80048; 80053; 81003; 83735; 84100; 84443; 84484; 85025; 85610; 85730; 93005; 93306; 96365; 96366; 96375; 96376; 99291

== ENCOUNTER 2018-11-06 11:55 | Emergency (ER) | payer OTHER ==
[2018-11-06 12:03] VITALS: TEMP 97.5
--- NOTE | 2018-11-06 12:06 | ED ---
General Adult HPI - General Chief complaint: Recheck/Abnormal Lab/Rx Stated complaint: VTACH Time Seen by Provider: 11/06/18 12:04 Source: patient, family, RN notes reviewed, old records reviewed Mode of arrival: wheelchair Limitations: no limitations - History of Present Illness Initial comments: Patient is a pleasant 28-year-old male presenting to the emergency Department with palpitations. Patient was doing yard work for around a half an hour prior to onset of symptoms. Onset was around a half an hour ago. Patient feels his heart racing. Patient also feels a little bit dizzy. No chest pain. No dyspnea. Patient does have history of similar symptoms previously associated with V. tach. Patient does have a AICD. Patient has not felt defibrillation. - Related Data Previous Rx's Medication Instructions Recorded Metoprolol Tartrate [Lopressor] 25 mg PO BID #180 tab 08/19/18 Sotalol [Betapace] 80 mg PO BID #180 tab 08/19/18 Allergies Allergy/AdvReac Type Severity Reaction Status Date / Time No Known Allergies Allergy Verified 11/06/18 12:29 Review of Systems ROS Statement: Those systems with pertinent positive or pertinent negative responses have been documented in the HPI. ROS Other: All systems not noted in ROS Statement are negative. Constitutional: Denies: fever Eyes: Denies: eye pain ENT: Denies: ear pain Respiratory: Denies: cough, dyspnea Cardiovascular: Reports: palpitations. Denies: chest pain Endocrine: Denies: fatigue Gastrointestinal: Denies: abdominal pain Genitourinary: Denies: dysuria Musculoskeletal: Denies: back pain Skin: Denies: rash Neurological: Denies: weakness Past Medical History Past Medical History: Diabetes Mellitus Additional Past Medical History / Comment(s): per pts pt had v tach) x 1 year ago with cardioversion x 2, past concussion 4 years ago., History of Any Multi-Drug Resistant Organisms: None Reported Past Surgical History: AICD, EPS, Heart Catheterization Additional Past Surgical History / Comment(s): CARDIOVERSION, Past Anesthesia/Blood Transfusion Reactions: No Reported Reaction Type of Cardiac Device: Permanent Pacemaker Device Placement Date:: 07/2015 Past Psychological History: No Psychological Hx Reported Smoking Status: Never smoker Past Alcohol Use History: None Reported Past Drug Use History: None Reported - Past Family History Mother Family Medical History: No Reported History Father Family Medical History: No Reported History Sister(s) Family Medical History: No Reported History General Exam Limitations: no limitations General appearance: alert, in no apparent distress Head exam: Present: atraumatic Eye exam: Present: normal appearance, PERRL ENT exam: Present: normal oropharynx Neck exam: Present: normal inspection Respiratory exam: Present: normal lung sounds bilaterally Cardiovascular Exam: Present: tachycardia Expanded Peripheral pulses: 2+: Radial (R), Radial (L), Posterior Tibialis (R), Posterior Tibialis (L) GI/Abdominal exam: Present: soft. Absent: distended, tenderness Extremities exam: Present: normal inspection. Absent: pedal edema, calf tenderness Neurological exam: Present: alert Psychiatric exam: Present: normal affect, normal mood Skin exam: Present: normal color Course Vital Signs 11/06/18 12:00 Temperature 97.5 F L Pulse Rate 160 H Respiratory 18 Rate Blood Pressure 105/69 O2 Sat by Pulse 98 Oximetry - Reevaluation(s) Reevaluation #1: 11/06/18 12:17 Case was discussed with on-call snow removal supervisor, Dr. Frausto who does agree with plan. 11/06/18 12:17 Patient presents with stable wide-complex tachycardia. IV amiodarone has been started. 11/06/18 13:03 Patient vomited then converted his rhythm. Repeat EKG at 1249 shows normal sinus rhythm at 72. HI 164. QRS 112. QT 404. QTC 442. Superior axis. Nonspecific T waves. Somewhat prominent QRS in aVR. EKG Findings - EKG Comments: EKG Findings:: Wide complex tachycardia with a rate of 159. QRS 172. QT 362. QTC 588. Normal axis. Wide-complex QRS. Nonspecific ST-T. Medical Decision Making - Medical Decision Making Patient reevaluated and resting comfortably in bed symptom-free. Normal sinus rhythm. Patient family updated on results and recommendation for admission. Case was also discussed again with Dr. Frausto with cardiology who also recommends admission. This was relayed to patient. Despite this patient refuses admission and will leave AGAINST MEDICAL ADVICE. Patient states he has had this multiple times previously. Patient states he will still follow up with his snow removal supervisor in the beginning of the week. Patient does demonstrate medical decision making. - Lab Data Result diagrams: 11/06/18 12:14 11/06/18 12:14 Lab Results 11/06/18 11/06/18 11/06/18 Range/Units 12:14 12:14 12:14 WBC 7.7 (3.8-10.6) k/uL RBC 5.75 (4.30-5.90) m/uL Hgb 16.1 (13.0-17.5) gm/dL Hct 47.6 (39.0-53.0) % MCV 82.9 (80.0-100.0) fL MCH 28.0 (25.0-35.0) pg MCHC 33.8 (31.0-37.0) g/dL RDW 13.1 (11.5-15.5) % Plt Count 244 (150-450) k/uL Neutrophils % 58 % Lymphocytes % 29 % Monocytes % 7 % Eosinophils % 3 % Basophils % 1 % Neutrophils # 4.5 (1.3-7.7) k/uL Lymphocytes # 2.2 (1.0-4.8) k/uL Monocytes # 0.5 (0-1.0) k/uL Eosinophils # 0.2 (0-0.7) k/uL Basophils # 0.0 (0-0.2) k/uL PT 11.8 (9.0-12.0) sec INR 1.1 (<1.2) APTT 25.9 (22.0-30.0) sec Sodium 143 (137-145) mmol/L Potassium 4.5 (3.5-5.1) mmol/L Chloride 107 (98-107) mmol/L Carbon Dioxide 25 (22-30) mmol/L Anion Gap 11 mmol/L BUN 21 H (9-20) mg/dL Creatinine 1.16 (0.66-1.25) mg/dL Est GFR (CKD-EPI)AfAm >90 (>60 ml/min/1.73 sqM) Est GFR (CKD-EPI)NonAf 87 (>60 ml/min/1.73 sqM) Glucose 88 (74-99) mg/dL Calcium 10.4 H (8.4-10.2) mg/dL Magnesium 2.0 (1.6-2.3) mg/dL Total Bilirubin 1.4 H (0.2-1.3) mg/dL AST 31 (17-59) U/L ALT 29 (21-72) U/L Alkaline Phosphatase 84 (38-126) U/L Troponin I (0.000-0.034) ng/mL Total Protein 8.6 H (6.3-8.2) g/dL Albumin 5.1 H (3.5-5.0) g/dL TSH 2.640 (0.465-4.680) mIU/L Free T4 1.38 (0.78-2.19) ng/dL Free T3 pg/mL 4.5 (2.8-5.3) pg/ml 11/06/18 Range/Units 12:14 WBC (3.8-10.6) k/uL RBC (4.30-5.90) m/uL Hgb (13.0-17.5) gm/dL Hct (39.0-53.0) % MCV (80.0-100.0) fL MCH (25.0-35.0) pg MCHC (31.0-37.0) g/dL RDW (11.5-15.5) % Plt Count (150-450) k/uL Neutrophils % % Lymphocytes % % Monocytes % % Eosinophils % % Basophils % % Neutrophils # (1.3-7.7) k/uL Lymphocytes # (1.0-4.8) k/uL Monocytes # (0-1.0) k/uL Eosinophils # (0-0.7) k/uL Basophils # (0-0.2) k/uL PT (9.0-12.0) sec INR (<1.2) APTT (22.0-30.0) sec Sodium (137-145) mmol/L Potassium (3.5-5.1) mmol/L Chloride (98-107) mmol/L Carbon Dioxide (22-30) mmol/L Anion Gap mmol/L BUN (9-20) mg/dL Creatinine (0.66-1.25) mg/dL Est GFR (CKD-EPI)AfAm (>60 ml/min/1.73 sqM) Est GFR (CKD-EPI)NonAf (>60 ml/min/1.73 sqM) Glucose (74-99) mg/dL Calcium (8.4-10.2) mg/dL Magnesium (1.6-2.3) mg/dL Total Bilirubin (0.2-1.3) mg/dL AST (17-59) U/L ALT (21-72) U/L Alkaline Phosphatase (38-126) U/L Troponin I <0.012 (0.000-0.034) ng/mL Total Protein (6.3-8.2) g/dL Albumin (3.5-5.0) g/dL TSH (0.465-4.680) mIU/L Free T4 (0.78-2.19) ng/dL Free T3 pg/mL (2.8-5.3) pg/ml - Radiology Data Radiology results: image reviewed (Chest x-ray shows no acute process) Critical Care Time Critical Care Time: Yes Total Critical Care Time: 33 Disposition Clinical Impression: Ventricular tachycardia Disposition: Left Against Medical Advice Instructions (If sedation given, give patient instructions): Tachycardia (ED) Additional Instructions: You are leaving AGAINST MEDICAL ADVICE. Please follow-up to primary care physician and Dr. Beard in the next day or 2 for recheck. Return for dizziness, nausea vomiting, racing heart rate, shortness of breath or chest pain, worsening symptoms or other concerns. Is patient prescribed a controlled substance at d/c from ED?: No Referrals: Andreia Tee MD [Primary Care Provider] - 1-2 days Yobany Rboins MD [STAFF PHYSICIAN] - 1-2 days Time of Disposition: 14:27
[2018-11-06] MEDS ORDERED: DEXTROSE 5% IN WATER 100 ML with AMIODARONE 150 MG IV ONE ×2 (12:12→12:38)
[2018-11-06] MEDS ORDERED: AMIODARONE 360 MG in DEXTROSE 5% IN WATER 200 ML IV ONE ×2 (12:13)
[2018-11-06] MEDS ORDERED: METOCLOPRAMIDE 5 MG/ML 2 ML VIAL IVP STA (12:38)
[2018-11-06 12:49] LABS: Basophils % (A) 1 %; Eosinophils # (A) 0.2 k/uL (0-0.7); Eosinophils % (A) 3 %; HCT 47.6 % (39.0-53.0); HGB 16.1 gm/dL (13.0-17.5); Lymphocytes # (A) 2.2 k/uL (1.0-4.8); Lymphocytes % (A) 29 %; MCHC 33.8 g/dL (31.0-37.0); MCV 82.9 fL (80.0-100.0); Mean Platelet Volume 6.5; Monocytes # (A) 0.5 k/uL (0-1.0); Monocytes % (A) 7 %; Neutrophils # (A) 4.5 k/uL (1.3-7.7); Neutrophils % (A) 58 %; Platelet Count 244 k/uL (150-450); RBC 5.75 m/uL (4.30-5.90); RDW 13.1 % (11.5-15.5); WBC 7.7 k/uL (3.8-10.6)
[2018-11-06 12:53] LABS: ALT 29 U/L (21-72); AST 31 U/L (17-59); African American GFR (CKD) >90 (>60 ml/min/1.73 sqM); Albumin 5.1 g/dL (3.5-5.0); Alkaline Phosphatase 84 U/L (38-126); Anion Gap 11 mmol/L; Blood Urea Nitrogen 21 mg/dL (9-20); Calcium 10.4 mg/dL (8.4-10.2); Carbon Dioxide 25 mmol/L (22-30); Chloride 107 mmol/L (98-107); Glucose 88 mg/dL (74-99); Non-African American GFR(CKD) 87 (>60 ml/min/1.73 sqM); Potassium 4.5 mmol/L (3.5-5.1); Sodium 143 mmol/L (137-145); Total Bilirubin 1.4 mg/dL (0.2-1.3); Total Protein 8.6 g/dL (6.3-8.2)
[2018-11-06 13:10] LABS: T4, Free (Free Thyroxine) 1.38 ng/dL (0.78-2.19)
--- NOTE | 2018-11-06 13:13 | XR ---
EXAMINATION TYPE: XR chest 1V portable DATE OF EXAM: 11/06/2018 HISTORY: dysrhythmia. REFERENCE: Previous study dated 08/15/2018 Findings: A bipolar pacemaker projects over the left side of the chest. Pacing leads appear unremarka ble. The lungs are clear. Pleural space are clear. The heart is not enlarged. IMPRESSION: NO ACUTE INTRATHORACIC ABNORMALITY.
[2018-11-06 13:16] LABS: INR 1.1 (<1.2); Partial Thromboplastin Time 25.9 sec (22.0-30.0); Prothrombin Time 11.8 sec (9.0-12.0)
[2018-11-06 14:42] VITALS: BP 126/70; PULSE 62; RESP 14
[2018-11-06] MEDS ORDERED: AMIODARONE 300 MG in DEXTROSE 5% IN WATER 250 ML IV SCH ×2 (18:12)
== END 2018-11-06 14:50 | disposition left against medical advice (07) ==
LOC: EC 11:55
DX: I47.2 Ventricular tachycardia (principal); Z95.810 Presence of automatic (implantable) cardiac defibrillator; Z95.818 Presence of other cardiac implants and grafts; Z98.890 Other specified postprocedural states; Z53.29 Procedure and treatment not carried out because of patient's decision for other reasons; Z53.8 Procedure and treatment not carried out for other reasons
CPT/HCPCS: 99291; 96365; 96366; 96376; 36415; 84439; 84481; 80053; 83735; 84443; 84484; 85025; 85610; 85730; 71045; J0282 ×2

== ENCOUNTER 2018-11-23 18:15 | Inpatient (IN) | payer OTHER ==
[2018-11-23] MEDS ORDERED: AMIODARONE 360 MG in DEXTROSE 5% IN WATER 200 ML IV ONE ×2 (18:35)
[2018-11-23] MEDS ORDERED: DEXTROSE 5% IN WATER 100 ML with AMIODARONE 150 MG IV ONE (18:35)
--- NOTE | 2018-11-23 18:38 | ED ---
General Adult HPI - General Chief complaint: Arrhythmia/Palpitations Stated complaint: V tach Time Seen by Provider: 11/23/18 18:22 Source: patient, family, RN notes reviewed Mode of arrival: ambulatory Limitations: no limitations - History of Present Illness Initial comments: Patient is a pleasant 28-year-old male presenting to the emergency Department with complaints of palpitations. Onset of symptoms was around an hour ago. Patient has not received a shock from his AICD. Patient has no history of previous V. tach. Patient was in the hospital 10 days ago approximately. On follow-up his sotalol was increased. Patient denies any chest discomfort. Patient denies dyspnea. Patient does have some lightheadedness. No nausea. No diaphoresis. - Related Data Home Medications Medication Instructions Recorded Confirmed Sotalol [Betapace] 120 mg PO BID 11/23/18 11/23/18 Previous Rx's Medication Instructions Recorded Metoprolol Tartrate [Lopressor] 25 mg PO BID #180 tab 08/19/18 Allergies Allergy/AdvReac Type Severity Reaction Status Date / Time No Known Allergies Allergy Verified 11/23/18 19:03 Review of Systems ROS Statement: Those systems with pertinent positive or pertinent negative responses have been documented in the HPI. ROS Other: All systems not noted in ROS Statement are negative. Constitutional: Denies: fever Eyes: Denies: eye pain ENT: Denies: ear pain Respiratory: Denies: cough Cardiovascular: Reports: palpitations. Denies: chest pain Endocrine: Denies: fatigue Gastrointestinal: Denies: abdominal pain Genitourinary: Denies: dysuria Musculoskeletal: Denies: back pain Skin: Denies: rash Neurological: Denies: headache Past Medical History Past Medical History: Diabetes Mellitus Additional Past Medical History / Comment(s): per pts pt had v tach) x 1 year ago with cardioversion x 2, past concussion 4 years ago., History of Any Multi-Drug Resistant Organisms: None Reported Past Surgical History: AICD, EPS, Heart Catheterization Additional Past Surgical History / Comment(s): CARDIOVERSION, Past Anesthesia/Blood Transfusion Reactions: No Reported Reaction Type of Cardiac Device: Permanent Pacemaker Device Placement Date:: 07/2015 Past Psychological History: No Psychological Hx Reported Smoking Status: Never smoker Past Alcohol Use History: None Reported Past Drug Use History: None Reported - Past Family History Mother Family Medical History: No Reported History Father Family Medical History: No Reported History Sister(s) Family Medical History: No Reported History General Exam Limitations: no limitations General appearance: alert, in no apparent distress Head exam: Present: atraumatic, normocephalic Eye exam: Present: normal appearance Neck exam: Present: normal inspection Respiratory exam: Present: normal lung sounds bilaterally. Absent: chest wall tenderness Cardiovascular Exam: Present: tachycardia Expanded Peripheral pulses: 2+: Radial (R), Radial (L), Posterior Tibialis (R), Posterior Tibialis (L) GI/Abdominal exam: Present: soft. Absent: tenderness Extremities exam: Present: normal inspection. 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 Patient was placed on panel monitor secondary to history of V. tach and having palpitations. 11/23/18 19:13 Repeat EKG at 1908 shows wide-complex tachycardia with a rate of 146. VT 112. QRS 196. QT 334. QTC 520. Normal axis. Wide-complex QRS. Nonspecific ST-T. 11/23/18 19:13 Called in to see patient for not feeling well. Patient complains of facial numbness and nausea. Patient was in sinus rhythm with occasional PVCs on the monitor. Symptoms did pass. After a short time patient did go to V. tach again. EKG Findings - EKG Comments: EKG Findings:: No sinus rhythm 73. VT 172. QRS 106. QT 384. QTC 423. Superior axis. LVH. T-wave inversion V1 through V4. Inferior Q waves. Medical Decision Making - Medical Decision Making Patient reevaluated several times in the emergency department. Patient is currently in sinus rhythm with a rate in the upper 60s. is feeling better at this time. Patient and family updated on results and plan. Case was discussed with Dr. Goldsmith, who will admit covering for Dr. Smiley would. Case was also discussed with Dr. Robins who is family with this patient. He recommends discontinuing amiodarone. He does recommend increasing sotalol to 160 mg twice a day and providing 2 g of magnesium. He will consult. - Lab Data Result diagrams: 11/23/18 18:38 11/23/18 18:38 Lab Results 11/23/18 11/23/18 11/23/18 Range/Units 18:38 18:38 18:38 WBC 7.3 (3.8-10.6) k/uL RBC 5.60 (4.30-5.90) m/uL Hgb 15.6 (13.0-17.5) gm/dL Hct 46.7 (39.0-53.0) % MCV 83.4 (80.0-100.0) fL MCH 27.8 (25.0-35.0) pg MCHC 33.3 (31.0-37.0) g/dL RDW 12.7 (11.5-15.5) % Plt Count 228 (150-450) k/uL Neutrophils % 49 % Lymphocytes % 36 % Monocytes % 8 % Eosinophils % 4 % Basophils % 1 % Neutrophils # 3.6 (1.3-7.7) k/uL Lymphocytes # 2.6 (1.0-4.8) k/uL Monocytes # 0.6 (0-1.0) k/uL Eosinophils # 0.3 (0-0.7) k/uL Basophils # 0.1 (0-0.2) k/uL PT (9.0-12.0) sec INR (<1.2) APTT (22.0-30.0) sec Sodium 139 (137-145) mmol/L Potassium 3.9 (3.5-5.1) mmol/L Chloride 103 (98-107) mmol/L Carbon Dioxide 23 (22-30) mmol/L Anion Gap 13 mmol/L BUN 22 H (9-20) mg/dL Creatinine 0.95 (0.66-1.25) mg/dL Est GFR (CKD-EPI)AfAm >90 (>60 ml/min/1.73 sqM) Est GFR (CKD-EPI)NonAf >90 (>60 ml/min/1.73 sqM) Glucose 140 H (74-99) mg/dL Calcium 9.8 (8.4-10.2) mg/dL Magnesium 2.1 (1.6-2.3) mg/dL Total Bilirubin 1.3 (0.2-1.3) mg/dL AST 29 (17-59) U/L ALT 24 (21-72) U/L Alkaline Phosphatase 56 (38-126) U/L Creatine Kinase 135 (55-170) U/L CK-MB (CK-2) 1.4 (0.0-2.4) ng/mL Troponin I <0.012 (0.000-0.034) ng/mL Total Protein 8.4 H (6.3-8.2) g/dL Albumin 5.0 (3.5-5.0) g/dL TSH 3.530 (0.465-4.680) mIU/L Free T4 0.95 (0.78-2.19) ng/dL Free T3 pg/mL 4.0 (2.8-5.3) pg/ml 11/23/18 Range/Units 18:38 WBC (3.8-10.6) k/uL RBC (4.30-5.90) m/uL Hgb (13.0-17.5) gm/dL Hct (39.0-53.0) % MCV (80.0-100.0) fL MCH (25.0-35.0) pg MCHC (31.0-37.0) g/dL RDW (11.5-15.5) % Plt Count (150-450) k/uL Neutrophils % % Lymphocytes % % Monocytes % % Eosinophils % % Basophils % % Neutrophils # (1.3-7.7) k/uL Lymphocytes # (1.0-4.8) k/uL Monocytes # (0-1.0) k/uL Eosinophils # (0-0.7) k/uL Basophils # (0-0.2) k/uL PT 11.4 (9.0-12.0) sec INR 1.1 (<1.2) APTT 26.0 (22.0-30.0) sec Sodium (137-145) mmol/L Potassium (3.5-5.1) mmol/L Chloride (98-107) mmol/L Carbon Dioxide (22-30) mmol/L Anion Gap mmol/L BUN (9-20) mg/dL Creatinine (0.66-1.25) mg/dL Est GFR (CKD-EPI)AfAm (>60 ml/min/1.73 sqM) Est GFR (CKD-EPI)NonAf (>60 ml/min/1.73 sqM) Glucose (74-99) mg/dL Calcium (8.4-10.2) mg/dL Magnesium (1.6-2.3) mg/dL Total Bilirubin (0.2-1.3) mg/dL AST (17-59) U/L ALT (21-72) U/L Alkaline Phosphatase (38-126) U/L Creatine Kinase (55-170) U/L CK-MB (CK-2) (0.0-2.4) ng/mL Troponin I (0.000-0.034) ng/mL Total Protein (6.3-8.2) g/dL Albumin (3.5-5.0) g/dL TSH (0.465-4.680) mIU/L Free T4 (0.78-2.19) ng/dL Free T3 pg/mL (2.8-5.3) pg/ml - Radiology Data Radiology results: image reviewed (Chest x-ray shows no acute process) Critical Care Time Critical Care Time: Yes Total Critical Care Time: 43 Disposition Clinical Impression: Ventricular tachycardia Disposition: ADMITTED IP TO THIS [facility] Is patient prescribed a controlled substance at d/c from ED?: No Referrals: Andreia Tee MD [Primary Care Provider] - 1-2 days Decision Time: 20:19
[2018-11-23 18:54] LABS: Basophils # (A) 0.1 k/uL (0-0.2); Basophils % (A) 1 %; Eosinophils # (A) 0.3 k/uL (0-0.7); Eosinophils % (A) 4 %; HCT 46.7 % (39.0-53.0); HGB 15.6 gm/dL (13.0-17.5); Lymphocytes # (A) 2.6 k/uL (1.0-4.8); Lymphocytes % (A) 36 %; MCH 27.8 pg (25.0-35.0); MCHC 33.3 g/dL (31.0-37.0); MCV 83.4 fL (80.0-100.0); Mean Platelet Volume 6.6; Monocytes # (A) 0.6 k/uL (0-1.0); Monocytes % (A) 8 %; Neutrophils # (A) 3.6 k/uL (1.3-7.7); Neutrophils % (A) 49 %; Platelet Count 228 k/uL (150-450); RDW 12.7 % (11.5-15.5); WBC 7.3 k/uL (3.8-10.6)
--- NOTE | 2018-11-23 19:08 | XR ---
EXAMINATION TYPE: XR chest 1V portable DATE OF EXAM: 11/23/2018 COMPARISON: 11/06/2018 HISTORY: Dysrhythmia TECHNIQUE: Single frontal view of the chest is obtained. FINDINGS: Heart and mediastinum are normal. Lungs are clear. Diaphragm is normal. There is a left ax illary pacemaker. There are chest leads. IMPRESSION: Normal chest. No change.
[2018-11-23 19:12] LABS: ALT 24 U/L (21-72); AST 29 U/L (17-59); African American GFR (CKD) >90 (>60 ml/min/1.73 sqM); Alkaline Phosphatase 56 U/L (38-126); Anion Gap 13 mmol/L; Blood Urea Nitrogen 22 mg/dL (9-20); Calcium 9.8 mg/dL (8.4-10.2); Carbon Dioxide 23 mmol/L (22-30); Chloride 103 mmol/L (98-107); Creatine Kinase 135 U/L (55-170); Glucose 140 mg/dL (74-99); Magnesium 2.1 mg/dL (1.6-2.3); Potassium 3.9 mmol/L (3.5-5.1); Sodium 139 mmol/L (137-145); Total Bilirubin 1.3 mg/dL (0.2-1.3); Total Protein 8.4 g/dL (6.3-8.2)
[2018-11-23 19:13] LABS: INR 1.1 (<1.2); Prothrombin Time 11.4 sec (9.0-12.0)
[2018-11-23 19:29] LABS: T4, Free (Free Thyroxine) 0.95 ng/dL (0.78-2.19)
[2018-11-23 19:33] LABS: Creatine Kinase MB 1.4 ng/mL (0.0-2.4); Troponin I <0.012 ng/mL (0.000-0.034)
[2018-11-23] MEDS ORDERED: SOTALOL 80 MG TAB PO STA (20:19)
[2018-11-23] MEDS ORDERED: NALOXONE 0.4 MG/ML 1 ML VIAL IV PRN (20:21)
[2018-11-23] MEDS: SODIUM CHLORIDE 0.9% 1,000 ML IV SCH (20:37)
[2018-11-23] MEDS: MAGNESIUM SULFATE-D5W PMX 1 GM in DEXTROSE/WATER 1 100ML.BAG IVPB SCH ×2 (20:40→22:44)
[2018-11-23 21:18] LABS: Appearance,Urine Clear (Clear); Bilirubin,Urine Negative (Negative); Blood,Urine Trace (Negative); Color,Urine Yellow; Glucose,Urine (UA) Negative (Negative); Hyaline Casts,Urine 7 /lpf (0-2); Ketones,Urine Negative (Negative); Leukocyte Esterase,Urine Negative (Negative); Mucus,Urine Few /hpf; Nitrite,Urine Negative (Negative); Protein,Urine 2+ (Negative); RBC,Urine 2 /hpf (0-5); Specific Gravity,Urine 1.019 (1.001-1.035); Squamous Epithelial Cell,Urine <1 /hpf (0-4); Urobilinogen,Urine <2.0 mg/dL (<2.0); WBC,Urine 2 /hpf (0-5)
[2018-11-23 21:34] LABS: Amphetamine Screen,Urine Not Detected (NotDetected); Barbiturate Screen,Urine Not Detected (NotDetected); Benzodiazepines Screen,Urine Not Detected (NotDetected); Cocaine Screen,Urine Not Detected (NotDetected); Methadone Screen, Urine Not Detected (NotDetected); Opiate Screen,Urine Not Detected (NotDetected); Oxycodone Screen, Urine Not Detected (NotDetected); Phencyclidine Screen,Urine Not Detected (NotDetected); Tricyclic Antidepressant,Urine Not Detected (NotDetected); Urn Cannabinoid Scrn Not Detected (NotDetected)
[2018-11-23] MEDS: METOPROLOL TARTRATE 25 MG TAB PO SCH (22:43)
[2018-11-23 23:43] VITALS: BMI 24.1
[2018-11-24] MEDS ORDERED: AMIODARONE 300 MG in DEXTROSE 5% IN WATER 250 ML IV SCH ×2 (00:30)
[2018-11-24] MEDS: METOPROLOL TARTRATE 25 MG TAB PO SCH ×2 (09:17→19:51)
[2018-11-24] MEDS: SOTALOL 80 MG TAB PO SCH ×2 (09:18→19:51)
--- NOTE | 2018-11-24 10:16 | P.CRDCN ---
History of Present Illness Consult date: 11/24/18 Requesting physician: Jeronimo Goldsmith Reason for Consult (text): V. tach Chief complaint: Palpitations History of present illness: This is a pleasant 28-year-old gentleman who follows with Dr. Robins in the office. He does have history of cardiac arrhythmia in the form of ventricular tachycardia, has an AICD in place. Patient presents to the hospital with symptoms of palpitations and heart racing, he states that he did take a sotalol just after the symptoms started, his AICD did not go off. Approximately week and a half to 2 weeks ago patient had a similar episode, came to the e mergency room was found to be in ventricular tachycardia, was given amiodarone, converted to normal sinus rhythm and although recommended to stay signed out AGAINST MEDICAL ADVICE. On this occasion, his EKG again showed a wide complex tachycardia which appears to be in ventricular tachycardia. Patient was initiated on A-V amiodarone, they did contact Dr. Robins who is familiar with the patient, he recommended discontinuing the amiodarone and recommending increasing his dose of sotalol to 160 mg twice a day. Patient was also given magnesium. Subsequent EKG shows normal sinus rhythm with nonspecific ST-T wave changes noted in the anterior leads. Blood pressure 120/70 with a heart rate in the 50s, 100% on room air. White blood cell count 7.3, hemoglobin 15.6, platelet count 228. Sodium 139, potassium 3.9, BUN 22 and creatinine 0.9. Magnesium 2.1. Troponin 0.012. TSH 3.5 free T4 0.9. At the time of my examination this morning, patient feels well, continues to be in a normal sinus rhythm. Past Medical History Past Medical History: Diabetes Mellitus Additional Past Medical History / Comment(s): per pts pt had v tach) x 1 year ago with cardioversion x 2, past concussion 4 years ago., History of Any Multi-Drug Resistant Organisms: None Reported Past Surgical History: AICD, EPS, Heart Catheterization Additional Past Surgical History / Comment(s): CARDIOVERSION, Past Anesthesia/Blood Transfusion Reactions: No Reported Reaction Type of Cardiac Device: Permanent Pacemaker Device Placement Date:: 07/2015 Past Psychological History: No Psychological Hx Reported Additional Psychological History / Comment(s): . Smoking Status: Never smoker Past Alcohol Use History: None Reported Additional Past Alcohol Use History / Comment(s): Patient is a lifelong nonsmoker, no marijuana or illicit drug use, no alcohol use. Past Drug Use History: None Reported - Past Family History Mother Family Medical History: No Reported History Father Family Medical History: No Reported History Sister(s) Family Medical History: No Reported History Medications and Allergies Home Medications Medication Instructions Recorded Confirmed Type Metoprolol Tartrate [Lopressor] 25 mg PO BID #180 tab 08/19/18 11/23/18 Rx Sotalol [Betapace] 120 mg PO BID 11/23/18 11/23/18 History Allergies Allergy/AdvReac Type Severity Reaction Status Date / Time No Known Allergies Allergy Verified 11/23/18 19:03 Physical Exam Vitals: Vital Signs Temp Pulse Pulse Resp BP BP Pulse Ox 11/24/18 04:00 50 L 15 121/77 100 11/24/18 00:00 97.6 F 56 L 16 115/70 97 11/23/18 21:45 97.7 F 57 L 17 124/84 99 11/23/18 21:15 97.7 F 51 L 18 108/65 98 11/23/18 18:56 74 18 137/96 97 11/23/18 18:38 160 H 11/23/18 18:21 97.3 F L 68 18 116/79 97 Intake and Output 11/23/18 11/24/18 11/24/18 22:59 06:59 14:59 Intake Total 1160 180 Balance 1160 180 Intake: IV 20 Invasive Line 1 20 Intake, IV Titration 200 160 Amount Magnesium Sulfate-D5w Pmx 200 1 gm In Dextrose/Water 1 100ml.bag @ 100 mls/hr IVPB Q1H JOANNA Rx#: [id number] Sodium Chloride 0.9% 1, 160 000 ml @ 20 mls/hr IV . Q24H JOANNA Rx#:[id number] Oral 960 Other: Voiding Method Toilet Weight 77.111 kg 76.4 kg PHYSICAL EXAMINATION: GENERAL: 28-year-old gentleman in no acute distress at the time of my examination HEENT: Head is atraumatic, normocephalic. Pupils equal, round. Sclera anicteric. Conjunctiva are clear. Mucous membranes of the mouth are moist. Neck is supple. There is no elevated jugular venous pressure. No carotid bruit is heard. HEART EXAMINATION: Heart S1, S2 normal. No murmur or gallop heard. CHEST EXAMINATION: Lungs are clear to auscultation and precussion. No chest wall tenderness is noted on palpation or with deep breathing. ABDOMEN: Soft, nontender. Bowel sounds are heard. No organomegaly noted. EXTREMITIES: 2+ peripheral pulses with no evidence of peripheral edema and no calf tenderness noted. NEUROLOGIC patient is awake, alert and oriented 3 . . Results 11/23/18 18:38 11/23/18 18:38 Cardiac Enzymes 11/23/18 11/23/18 Range/Units 18:38 18:38 AST 29 (17-59) U/L CK-MB (CK-2) 1.4 (0.0-2.4) ng/mL Troponin I <0.012 (0.000-0.034) ng/mL Coagulation 11/23/18 Range/Units 18:38 PT 11.4 (9.0-12.0) sec APTT 26.0 (22.0-30.0) sec CBC 11/23/18 Range/Units 18:38 WBC 7.3 (3.8-10.6) k/uL RBC 5.60 (4.30-5.90) m/uL Hgb 15.6 (13.0-17.5) gm/dL Hct 46.7 (39.0-53.0) % Plt Count 228 (150-450) k/uL Comprehensive Metabolic Panel 11/23/18 Range/Units 18:38 Sodium 139 (137-145) mmol/L Potassium 3.9 (3.5-5.1) mmol/L Chloride 103 (98-107) mmol/L Carbon Dioxide 23 (22-30) mmol/L BUN 22 H (9-20) mg/dL Creatinine 0.95 (0.66-1.25) mg/dL Glucose 140 H (74-99) mg/dL Calcium 9.8 (8.4-10.2) mg/dL AST 29 (17-59) U/L ALT 24 (21-72) U/L Alkaline Phosphatase 56 (38-126) U/L Total Protein 8.4 H (6.3-8.2) g/dL Albumin 5.0 (3.5-5.0) g/dL Current Medications Generic Name Dose Route Start Last Admin Trade Name Freq PRN Reason Stop Dose Admin Sodium Chloride 1,000 mls @ 20 mls/hr 11/23/18 20:30 11/23/18 20:37 Saline 0.9% IV 20 mls/hr .Q24H JOANNA Administration Metoprolol Tartrate 25 mg 11/23/18 21:00 11/24/18 09:17 Lopressor PO 25 mg BID JOANNA Administration Naloxone HCl 0.2 mg 11/23/18 20:21 Narcan IV Q2M PRN Opioid Reversal Sotalol HCl 160 mg 11/24/18 09:00 11/24/18 09:18 Betapace PO 160 mg BID JOANNA Administration Intake and Output 11/23/18 11/24/18 11/24/18 22:59 06:59 14:59 Intake Total 1160 180 Balance 1160 180 Intake: IV 20 Invasive Line 1 20 Intake, IV Titration 200 160 Amount Magnesium Sulfate-D5w Pmx 200 1 gm In Dextrose/Water 1 100ml.bag @ 100 mls/hr IVPB Q1H JOANNA Rx#: [id number] Sodium Chloride 0.9% 1, 160 000 ml @ 20 mls/hr IV . Q24H JOANNA Rx#:[id number] Oral 960 Other: Voiding Method Toilet Weight 77.111 kg 76.4 kg 11/23/18 18:38 11/23/18 18:38 EKG Interpretations (text) Initial EKG showed a wide complex tachycardia suggestive of ventricular tachycardia. Subsequent EKG showed normal sinus rhythm with anterior T-wave inversion. Assessment and Plan Plan: Assessment and plan #1 of ventricular tachycardia, dose of sotalol increased, patient currently in normal sinus rhythm #2 history of ventricular tachycardia with prior AICD implantation Plan Dose of sotalol has been increased to 160 mg by mouth twice a day. We will also obtain a limited echocardiogram to assess LV function. Magnesium has been supplemented, we will give the patient an extra dose of potassium. Further recommendations to follow. DNP note has been reviewed, I agree with a documented findings and plan of care. Patient was seen and examined.
--- NOTE | 2018-11-24 15:05 | P.HPIM ---
History of Present Illness H&P Date: 11/24/18 This is a 28-year-old male patient previously seen by Dr. Tee in the past but appears to be without primary care physician as Dr. Tee is no longer practicing locally. 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 Robins. Patient is on sotalol and Lopressor and states he has been taking this as directed. Patient states he was sitting on the couch all the sudden he felt a wave come over him and then his heart started racing. His AICD did not go off. He did have a recent similar episode but was only seen in the emergency center and converted with amiodarone and signed out AGAINST MEDICAL ADVICE. Patient now presents with a wide complex tachycardia appears to be ventricular tachycardia. He was started on amiodarone in the emergency center which was subsequently discontinued when Dr. Robins was contacted. Sotalol dose was increased and mag nesium replaced. Patient has been admitted to the cardiac stepdown unit and cardiology consult in place. Review of Systems Constitutional: Denies anorexia, Denies chills, Denies fatigue, Denies fever, Denies lethargy, Denies malaise, Denies poor appetite Eyes: denies blurred vision, denies pain Ears, nose, mouth and throat: Denies dysphagia, Denies headache, Denies nasal congestion, Denies nasal discharge, Denies sore throat, Denies vertigo Cardiovascular: Reports palpitations, Denies chest pain, Denies dyspnea on exertion, Denies edema, Denies shortness of breath, Denies syncope Respiratory: Denies cough, Denies cough with sputum, Denies dyspnea, Denies excessive sputum, Denies hemoptysis, Denies home oxygen, Denies wheezing Gastrointestinal: Denies abdominal pain, Denies diarrhea, Denies loss of appetite, Denies nausea, Denies vomiting Genitourinary: Denies dysuria Musculoskeletal: Denies frequent falls, Denies gait dysfunction, Denies muscle weakness, Denies myalgias Integumentary: Denies pruritus, Denies rash, Denies wounds Neurological: Denies aphasia, Denies change in mentation, Denies change in speech, Denies gait dysfunction, Denies headaches, Denies numbness, Denies seizures, Denies vertigo, Denies weakness Psychiatric: Denies anxiety, Denies depression Endocrine: Denies fatigue, Denies weight change Past Medical History Past Medical History: Diabetes Mellitus Additional Past Medical History / Comment(s): per pts pt had v tach) x 1 year ago with cardioversion x 2, past concussion 4 years ago., History of Any Multi-Drug Resistant Organisms: None Reported Past Surgical History: AICD, EPS, Heart Catheterization Additional Past Surgical History / Comment(s): CARDIOVERSION, Past Anesthesia/Blood Transfusion Reactions: No Reported Reaction Type of Cardiac Device: Permanent Pacemaker Device Placement Date:: 07/2015 Past Psychological History: No Psychological Hx Reported Additional Psychological History / Comment(s): . Smoking Status: Never smoker Past Alcohol Use History: None Reported Additional Past Alcohol Use History / Comment(s): Patient is a lifelong nonsmoker, no marijuana or illicit drug use, no alcohol use. Past Drug Use History: None Reported - Past Family History Mother Family Medical History: No Reported History Additional Family Medical History / Comment(s): Mother is alive at age 43 with no major medical problem. Father Family Medical History: No Reported History Additional Family Medical History / Comment(s): The patient has no contact with his father does not know his medical history. Sister(s) Family Medical History: No Reported History Additional Family Medical History / Comment(s): Patient has one half sister with no major medical problems. Patient has 3 children with no major medical problems. Medications and Allergies Home Medications Medication Instructions Recorded Confirmed Type Metoprolol Tartrate [Lopressor] 25 mg PO BID #180 tab 08/19/18 11/23/18 Rx Sotalol [Betapace] 120 mg PO BID 11/23/18 11/23/18 History Allergies Allergy/AdvReac Type Severity Reaction Status Date / Time No Known Allergies Allergy Verified 11/23/18 19:03 Physical Exam Vitals: Vital Signs Temp Pulse Pulse Resp BP BP Pulse Ox 11/24/18 12:00 16 11/24/18 08:00 97.4 F L 61 16 114/68 99 11/24/18 04:00 50 L 15 121/77 100 11/24/18 00:00 97.6 F 56 L 16 115/70 97 11/23/18 21:45 97.7 F 57 L 17 124/84 99 11/23/18 21:15 97.7 F 51 L 18 108/65 98 11/23/18 18:56 74 18 137/96 97 11/23/18 18:38 160 H 11/23/18 18:21 97.3 F L 68 18 116/79 97 Intake and Output 11/23/18 11/24/18 11/24/18 22:59 06:59 14:59 Intake Total 1160 180 20 Balance 1160 180 20 Intake: IV 20 20 Invasive Line 1 20 20 Intake, IV Titration 200 160 Amount Magnesium Sulfate-D5w Pmx 200 1 gm In Dextrose/Water 1 100ml.bag @ 100 mls/hr IVPB Q1H JOANNA Rx#: [id number] Sodium Chloride 0.9% 1, 160 000 ml @ 20 mls/hr IV . Q24H JOANNA Rx#:[id number] Oral 960 Other: Voiding Method Toilet Toilet Weight 77.111 kg 76.4 kg Gen: This is a 28-year-old male. He is resting in bed and appears to be comfortable and in no acute distress. HEENT: Head is atraumatic, normocephalic. Pupils equal, round. Sclerae is anicteric. Conjunctiva pink. NECK: Supple. No JVD. No lymphadenopathy. No thyromegaly. LUNGS: Clear to auscultation. No wheezes or rhonchi. No intercostal retractions. HEART: Regular rate and rhythm. No murmur. ABDOMEN: Soft. Bowel sounds are present. No masses. No tenderness. EXTREMITIES: No pedal edema. No calf tenderness. Dorsalis pedis +2 bilaterally. NEUROLOGICAL: Patient is awake, alert and oriented x3. Cranial nerves 2 through 12 are grossly intact. Results CBC & Chem 7: 11/23/18 18:38 11/23/18 18:38 Labs: Abnormal Lab Results - Last 24 Hours (Table) 11/23/18 11/23/18 Range/Units 18:38 20:54 BUN 22 H (9-20) mg/dL Glucose 140 H (74-99) mg/dL Total Protein 8.4 H (6.3-8.2) g/dL Urine Protein 2+ H (Negative) Urine Blood Trace H (Negative) Hyaline Casts 7 H (0-2) /lpf Urine Mucus Few H (None) /hpf Thrombosis Risk Factor Assmnt - DVT/VTE Prophylaxis DVT/VTE Prophylaxis: Mechanical Prophylaxis ordered - Choose All That Apply Any of the Below Risk Factors Present?: No Other Risk Factors: No Other congenital or acquired thrombophilia - If yes, enter type in comment: No Thrombosis Risk Factor Assessment Level: Very Low Risk Assessment and Plan Plan: 1. Wide complex tachycardia, most likely ventricular tachycardia. Cardiology consult appreciated. Sotalol dose increased to 160 mg twice daily. Continue metoprolol 25 mg twice daily. Patient is currently in normal sinus rhythm. Patient states that Dr. Robins was planning for an ablation sometime this year. 2. History of ventricular tachycardia status post AICD. 3. DVT prophylaxis. SCDs and CLAYTON hose. 4. GI prophylaxis. Pepcid. Patient will be admitted to the hospital for a minimum of 2 night stay. Discharge plan: Return home. Impression and plan of care have been directed as dictated by the signing physician. Yulissa Das nurse practitioner acting as scribe for signing ph ysician.
--- NOTE | 2018-11-24 18:24 | ECHOF ---
Referral Reason:limited to assess lvf MEASUREMENTS -------- HEIGHT: 182.9 cm WEIGHT: 73.5 kg BP: FINDINGS -------- Paced rhythm. Limited Study For LV Function. Overall left ventricular systolic function is low-normal with, an EF between 50 - 55 %. There is no pericardial effusion. DILATED RV CONCLUSIONS -------- 1. Paced rhythm. 2. Overall left ventricular systolic function is low-normal with, an EF between 50 - 55 %. 3. There is no pericardial effusion. REGISTERED DIETETIC TECHNICIAN: Misty Blank RDCS
[2018-11-24] MEDS: SODIUM CHLORIDE 0.9% 1,000 ML IV SCH (21:36)
[2018-11-25] MEDS: METOPROLOL TARTRATE 25 MG TAB PO SCH (08:46)
[2018-11-25] MEDS: SOTALOL 80 MG TAB PO SCH (08:47)
[2018-11-25] MEDS ORDERED: FAMOTIDINE 20 MG TAB PO SCH (09:00)
--- NOTE | 2018-11-25 10:28 | P.PN ---
Subjective Progress Note Date: 11/25/18 Principal diagnosis: Cardiac arrhythmia This is a pleasant 28-year-old gentleman who sees Dr. Robins as an outpatient with history of ventricular tachycardia status post AICD was admitted to the hospital with symptoms of palpitations and heart racing and he was found to be in ventricular tachycardia. He was converted to normal sinus mechanism. The dose of sotalol was increased. On follow-up with him today, he is asymptomatic from the cardiac standpoint. No arrhythmia was noted. The patient can be discharged home. Objective - Vital Signs Vital signs: Vital Signs Temp 97.6 F 11/25/18 04:00 Pulse 52 L 11/25/18 04:00 Resp 18 11/25/18 04:00 BP 125/75 11/25/18 04:00 Pulse Ox 95 11/25/18 04:00 Intake & Output 11/24/18 11/25/18 11/25/18 18:59 06:59 18:59 Intake Total 740 320 240 Balance 740 320 240 Weight 77.2 kg Intake: IV 20 Invasive Line 1 20 Intake, IV Titration 320 Amount Sodium Chloride 0.9% 1, 320 000 ml @ 20 mls/hr IV . Q24H JOANNA Rx#:[id number] Oral 720 240 Other: Voiding Method Toilet Toilet # Voids 2 1 - Constitutional General appearance: Present: no acute distress - Respiratory Respiratory: bilateral: CTA - Cardiovascular Rhythm: regular Heart sounds: normal: S1, S2 - Labs CBC & Chem 7: 11/23/18 18:38 11/23/18 18:38 Assessment and Plan Assessment: Assessment #1 ventricular tachycardia in a 28-year-old gentleman with known history of V. tach and status post AICD Plan #1 the dose of sotalol was increased #2 the patient can be discharged home
--- NOTE | 2018-11-25 11:58 | P.CRDCN ---
<Jessa Sargent - Last Filed: 11/25/18 11:37> History of Present Illness History of present illness: This is Jessa Sargent PA-C dictating an EP consult on this patient The patient was interviewed and examined by me as well as by Dr. Robins Case discussed with Dr. Robins and he agrees with the plan of care IMPRESSION / ASSESSMENT: Ventricular tachycardia, patient currently in sinus rhythm Arrhythmogenic cardiomyopathy status post ICD placement PLAN: Reduce dose of sotalol back down to 120 mg twice a day due to QT prolongation Continue oral magnesium mentation as well as metoprolol titrate 25 mg by mouth twice a day Patient is clear for discharge from a cardiac standpoint, follow-up in the of [facility] [place] [facility] within 1 week Recommend planning for a VT ablation, detailed discussion with the patient and his about the procedure, indication, risks, and possible complications including cardiac puncture, patient and verbalized their understanding HPI Patient is a 28-year-old male with a past medical history of arrhythmogenic cardiomyopathy status post ICD placement who presented with complaints of palpitations. He was sitting at home eating dinner when he experienced a sudden onset of palpitations. Denies any other associated symptoms including chest pain, shortness of breath, dizziness, lightheadedness, syncope, diaphoresis, nausea. He had a similar episode a few weeks ago and was found to be in ventricular tachycardia and his sotalol was increased to 120 mg daily. He had an issue with his pharmacy and did not start taking the increased dose of sotalol until 2 days ago. Upon presentation to the urgency department he was found to be in ventricular tachycardia. His blood pressure was stable. He was started on amiodarone and converted to sinus rhythm. Dr. Robins was contacted and he recommended discontinuing amiodarone and increasing his sotalol to 160 mg twice daily. Patient has maintained sinus rhythm overnight. Limited echo showed preserved LV systolic function, EF 50-55%. Repeat EKG today shows sinus mechanism, rate 49, absolute QT 500 ms. Should seen and examined resting comfortably in bed. States he has feeling well. Denies chest pain, shortness of breath, palpitations, dizziness lightheadedness or syncope. ROS: No fevers, chills or rigors, no cough, phlegm or expectoration, no nausea, vomiting or diarrhea, no hematuria, dysuria, no musculoskeletal complaints, no strokes or seizures, no skin lesions. EXAMINATION: Temperature 97.7F, pulse 51, respirations 18, blood pressure 108/65, oxygen saturation 98% on room air Patient seen and examined resting comfortably in bed, in no acute distress Lungs clear to auscultation bilaterally Heart is regular, normal S1-S2, no murmurs appreciated No lower extremity edema No elevated JVD Abdomen soft REVIEW OF LABS, ECG & MEDICAL DATA WBC 7.3, hemoglobin 15.6, platelets 228, potassium 3.9, BUN 22, creatinine 0.95, magnesium 2.1 TSH 3.530 troponin negative Initial EKG showed ventricular tachycardia with a left bundle branch block appearance likely right ventricular origin, repeat EKG showed sinus mechanism with T-wave inversions V1 through V4 EKG today showed sinus mechanism, rate 49, absolute QT 500 ms Chest x-ray negative for acute cardiopulmonary process Limited echocardiogram showed EF 50-55% Past Medical History Past Medical History: Diabetes Mellitus Additional Past Medical History / Comment(s): per pts pt had v tach) x 1 year ago with cardioversion x 2, past concussion 4 years ago., History of Any Multi-Drug Resistant Organisms: None Reported Past Surgical History: AICD, EPS, Heart Catheterization Additional Past Surgical History / Comment(s): CARDIOVERSION, Past Anesthesia/Blood Transfusion Reactions: No Reported Reaction Type of Cardiac Device: Permanent Pacemaker Device Placement Date:: 07/2015 Past Psychological History: No Psychological Hx Reported Additional Psychological History / Comment(s): . Smoking Status: Never smoker Past Alcohol Use History: None Reported Additional Past Alcohol Use History / Comment(s): Patient is a lifelong nonsmoker, no marijuana or illicit drug use, no alcohol use. Past Drug Use History: None Reported - Past Family History Mother Family Medical History: No Reported History Additional Family Medical History / Comment(s): Mother is alive at age 43 with no major medical problem. Father Family Medical History: No Reported History Additional Family Medical History / Comment(s): The patient has no contact with his father does not know his medical history. Sister(s) Family Medical History: No Reported History Additional Family Medical History / Comment(s): Patient has one half sister with no major medical problems. Patient has 3 children with no major medical p roblems. Medications and Allergies Home Medications Medication Instructions Recorded Confirmed Type Metoprolol Tartrate [Lopressor] 25 mg PO BID #180 tab 08/19/18 11/23/18 Rx Sotalol [Betapace] 120 mg PO BID 11/23/18 11/23/18 History Allergies Allergy/AdvReac Type Severity Reaction Status Date / Time No Known Allergies Allergy Verified 11/23/18 19:03 Physical Exam Vitals: Vital Signs Temp Pulse Resp BP Pulse Ox 11/25/18 04:00 97.6 F 52 L 18 125/75 95 11/25/18 00:00 97.7 F 56 L 16 107/54 100 11/24/18 19:55 50 L 18 11/24/18 19:54 97.9 F 50 L 18 115/52 100 11/24/18 16:00 50 L 16 122/65 99 11/24/18 12:00 50 L 16 121/66 99 Intake and Output 11/24/18 11/25/18 11/25/18 22:59 06:59 14:59 Intake Total 640 160 240 Balance 640 160 240 Intake: Intake, IV Titration 160 160 Amount Sodium Chloride 0.9% 1, 160 160 000 ml @ 20 mls/hr IV . Q24H JOANNA Rx#:[id number] Oral 480 240 Other: Voiding Method Toilet Toilet # Voids 1 1 Weight 77.2 kg Results 11/23/18 18:38 11/23/18 18:38 Current Medications Generic Name Dose Route Start Last Admin Trade Name Freq PRN Reason Stop Dose Admin Famotidine 20 mg 11/25/18 09:00 11/25/18 08:47 Pepcid PO 20 mg DAILY JOANNA Administration Sodium Chloride 1,000 mls @ 20 mls/hr 11/23/18 20:30 11/24/18 21:36 Saline 0.9% IV Not Given .Q24H JOANNA Metoprolol Tartrate 25 mg 11/23/18 21:00 11/25/18 08:46 Lopressor PO 25 mg BID JOANNA Administration Naloxone HCl 0.2 mg 11/23/18 20:21 Narcan IV Q2M PRN Opioid Reversal Sotalol HCl 160 mg 11/24/18 09:00 11/25/18 08:47 Betapace PO 160 mg BID JOANNA Administration Intake and Output 11/24/18 11/25/18 11/25/18 22:59 06:59 14:59 Intake Total 640 160 240 Balance 640 160 240 Intake: Intake, IV Titration 160 160 Amount Sodium Chloride 0.9% 1, 160 160 000 ml @ 20 mls/hr IV . Q24H JOANNA Rx#:[id number] Oral 480 240 Other: Voiding Method Toilet Toilet # Voids 1 1 Weight 77.2 kg 11/23/18 18:38 11/23/18 18:38 <Yobany Robins - Last Filed: 11/25/18 12:04> History of Present Illness History of present illness: Patient interviewed and examined along with Jessa coleman History of sustained ventricular tachycardia, left bundle branch block like VT likely mid anterior wall of the right ventricle Underlying arrhythmogenic cardio myopathy History of multiple ICD shocks in the past Took only one dose of sotalol 120 mg which was recently increased QT interval is prolonged on 116 g twice daily. QT interval is about 510 ms Continue beta blockers Consider VT ablation now Risk of cardiac puncture explained in this underlying substrate Physical Exam Vitals: Vital Signs Temp Pulse Resp BP Pulse Ox 11/25/18 08:00 98.2 F 53 L 16 116/71 99 11/25/18 04:00 97.6 F 52 L 18 125/75 95 11/25/18 00:00 97.7 F 56 L 16 107/54 100 11/24/18 19:55 50 L 18 11/24/18 19:54 97.9 F 50 L 18 115/52 100 11/24/18 16:00 50 L 16 122/65 99 Intake and Output 11/24/18 11/25/18 11/25/18 22:59 06:59 14:59 Intake Total 640 160 240 Balance 640 160 240 Intake: Intake, IV Titration 160 160 Amount Sodium Chloride 0.9% 1, 160 160 000 ml @ 20 mls/hr IV . Q24H JOANNA Rx#:[id number] Oral 480 240 Other: Voiding Method Toilet Toilet Toilet # Voids 1 1 Weight 77.2 kg Results 11/23/18 18:38 11/23/18 18:38 Current Medications Generic Name Dose Route Start Last Admin Trade Name Freq PRN Reason Stop Dose Admin Famotidine 20 mg 11/25/18 09:00 11/25/18 08:47 Pepcid PO 20 mg DAILY [facility] Administration Sodium Chloride 1,000 mls @ 20 mls/hr 11/23/18 20:30 11/24/18 21:36 Saline 0.9% IV Not Given .Q24H JOANNA Metoprolol Tartrate 25 mg 11/23/18 21:00 11/25/18 08:46 Lopressor PO 25 mg BID JOANNA Administration Naloxone HCl 0.2 mg 11/23/18 20:21 Narcan IV Q2M PRN Opioid Reversal Sotalol HCl 160 mg 11/24/18 09:00 11/25/18 08:47 Betapace PO 160 mg BID JOANNA Administration Intake and Output 11/24/18 11/25/18 11/25/18 22:59 06:59 14:59 Intake Total 640 160 240 Balance 640 160 240 Intake: Intake, IV Titration 160 160 Amount Sodium Chloride 0.9% 1, 160 160 000 ml @ 20 mls/hr IV . Q24H JOANNA Rx#:[id number] Oral 480 240 Other: Voiding Method Toilet Toilet Toilet # Voids 1 1 Weight 77.2 kg 11/23/18 18:38 11/23/18 18:38
[2018-11-25 12:41] VITALS: BP 123/68; PULSE 50; RESP 14; TEMP 98
--- NOTE | 2018-11-25 13:45 | P.DS ---
Providers Date of admission: 11/23/18 20:21 Expected date of discharge: 11/25/18 Attending physician: Jeronimo Goldsmith Consults: 11/23/18 20:21 Consult Physician Stat Consulting Provider: Yobany Robins Consult Reason/Comments: v tach Do you want consulting provider notified?: Already Contacted 11/25/18 11:20 Consult Physician Urgent Consulting Provider: Yobany Robins Consult Reason/Comments: pt known to you Do you want consulting provider notified?: Already Contacted Primary care physician: [facility] Course: This is a 28-year-old male patient previously seen by Dr. Tee in the past but appears to be without primary care physician as Dr. Tee is no longer practicing locally. 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 Robins. Patient is on sotalol and Lopressor and states he has been taking this as directed. Patient states he was sitting on the couch all the sudden he felt a wave come over him and then his heart started racing. His AICD did not go off. He did have a recent similar episode but was only seen in the emergency center and converted with amiodarone and signed out AGAINST MEDICAL ADVICE. Patient now presents with a wide complex tachycardia appears to be ventricular tachycardia. He was started on amiodarone in the emergency center which was subsequently discontinued when Dr. Robins was contacted. Sotalol dose was increased and magnesium replaced. Patient has been admitted to the cardiac stepdown unit and cardiology consult in place. 11/25: Patient denies any new complaints. He has been in a sinus rhythm. Patient was seen by his guyline operator, Dr. Robins and he is recommending reducing dose of sotalol back 220 mg twice daily due to QT prolongation. Patient to continue metipranolol 25 mg twice daily and follow-up in the office in one week. Discussed PCP with the patient as Dr. Tee has not been practicing for many months. Patient has been encouraged to follow-up with a PCP of his choice on a regular basis. Patient will be discharged home today in stable condition. Discharge diagnoses: 1. Ventricular tachycardia. 2. Arrhythmogenic cardiomyopathy status post ICD placement. Discharge plan: Return home. Impression and plan of care have been directed as dictated by the signing physician. Yulissa Das nurse practitioner acting as scribe for signing physician. Patient Condition at Discharge: Good Plan - Discharge Summary Discharge Rx Participant: Yes New Discharge Prescriptions: Continue Metoprolol Tartrate [Lopressor] 25 mg PO BID #180 tab Sotalol [Betapace] 120 mg PO BID Discharge Medication List Metoprolol Tartrate [Lopressor] 25 mg PO BID #180 tab 08/19/18 [Rx] Sotalol [Betapace] 120 mg PO BID 11/23/18 [History] Follow up Appointment(s)/Referral(s): Yobany Robins MD [STAFF PHYSICIAN] - 1 Week (Continue sotalol 120 mg twice daily. Do not take 160 mg twice daily line continue metoprolol as before ) Discharge Disposition: HOME SELF-CARE
== END 2018-11-25 15:09 | disposition home or self-care (01) | DRG 309 ==
LOC: EC 18:15 → 3SCARD 20:21
PROVIDERS: ADMIT Internal Medicine Geriatric Medicine; ATTEND Internal Medicine Geriatric Medicine
DX: I47.2 Ventricular tachycardia (principal); I42.8 Other cardiomyopathies; I45.81 Long QT syndrome; E11.9 Type 2 diabetes mellitus without complications; I44.7 Left bundle-branch block, unspecified; Z79.899 Other long term (current) drug therapy; Z95.810 Presence of automatic (implantable) cardiac defibrillator; Z87.820 Personal history of traumatic brain injury; Z98.890 Other specified postprocedural states
CPT/HCPCS: 36415; 71045; 80053; 80306; 81001; 82550; 82553; 83735; 84439; 84443; 84481; 84484; 85025; 85610; 85730; 93005; 93306; 96365; 96366; 96368; 99291

== ENCOUNTER 2018-12-24 16:56 | Emergency (ER) | payer OTHER ==
[2018-12-24 17:01] VITALS: RESP 18; TEMP 97.6
[2018-12-24] MEDS ORDERED: MAGNESIUM SULFATE-D5W PMX 1 GM in DEXTROSE/WATER 1 100ML.BAG IVPB ONE (17:12)
[2018-12-24 17:30] LABS: Basophils # (A) 0.1 k/uL (0-0.2); Basophils % (A) 2 %; Eosinophils # (A) 0.3 k/uL (0-0.7); Eosinophils % (A) 4 %; HCT 42.4 % (39.0-53.0); HGB 14.7 gm/dL (13.0-17.5); Lymphocytes # (A) 1.8 k/uL (1.0-4.8); Lymphocytes % (A) 28 %; MCH 28.2 pg (25.0-35.0); MCHC 34.6 g/dL (31.0-37.0); MCV 81.4 fL (80.0-100.0); Mean Platelet Volume 6.6; Monocytes # (A) 0.4 k/uL (0-1.0); Monocytes % (A) 6 %; Neutrophils # (A) 3.8 k/uL (1.3-7.7); Neutrophils % (A) 58 %; Platelet Count 211 k/uL (150-450); RBC 5.21 m/uL (4.30-5.90); RDW 12.6 % (11.5-15.5); WBC 6.4 k/uL (3.8-10.6)
--- NOTE | 2018-12-24 17:33 | ED ---
General Adult HPI - General Chief complaint: Arrhythmia/Palpitations Stated complaint: V tach Time Seen by Provider: 12/24/18 17:06 Source: patient, RN notes reviewed Mode of arrival: ambulatory Limitations: no limitations - History of Present Illness Initial comments: Patient is a pleasant 28-year-old male presenting to the emergency Department with palpitations. Patient has had similar episodes multiple times previously associated with V. tach. Patient does see Dr. Aceves and is planning ablation in January. This was the first available time. Patient feels like his heart is racing. Patient does get associated nausea and feels unsettled. Patient states this has been occurring over the past hour. Patient states it is been mostly persistent however recently it has been intermittent. No pain or dyspnea. Patient does have a defibrillator and this has not gone off today. - Related Data Home Medications Medication Instructions Recorded Confirmed Sotalol [Betapace] 120 mg PO BID 11/23/18 12/24/18 Previous Rx's Medication Instructions Recorded Metoprolol Tartrate [Lopressor] 25 mg PO BID #60 tablet 11/25/18 Allergies Allergy/AdvReac Type Severity Reaction Status Date / Time No Known Allergies Allergy Verified 12/24/18 17:22 Review of Systems ROS Statement: Those systems with pertinent positive or pertinent negative responses have been documented in the HPI. ROS Other: All systems not noted in ROS Statement are negative. Constitutional: Denies: fever Eyes: Denies: eye pain ENT: Denies: ear pain Respiratory: Denies: cough Cardiovascular: Reports: palpitations Endocrine: Denies: fatigue Gastrointestinal: Reports: nausea. Denies: abdominal pain Genitourinary: Denies: dysuria Musculoskeletal: Denies: back pain Skin: Denies: rash Neurological: Denies: weakness Past Medical History Past Medical History: Diabetes Mellitus Additional Past Medical History / Comment(s): per pts pt had v tach) x 1 year ago with cardioversion x 2, past concussion 4 years ago., History of Any Multi-Drug Resistant Organisms: None Reported Past Surgical History: AICD, EPS, Heart Catheterization Additional Past Surgical History / Comment(s): CARDIOVERSION, Past Anesthesia/Blood Transfusion Reactions: No Reported Reaction Type of Cardiac Device: Permanent Pacemaker Device Placement Date:: 07/2015 Past Psychological History: No Psychological Hx Reported Smoking Status: Never smoker Past Alcohol Use History: None Reported Past Drug Use History: None Reported - Past Family History Mother Family Medical History: No Reported History Additional Family Medical History / Comment(s): Mother is alive at age 43 with no major medical problem. Father Family Medical History: No Reported History Additional Family Medical History / Comment(s): The patient has no contact with his father does not know his medical history. Sister(s) Family Medical History: No Reported History Additional Family Medical History / Comment(s): Patient has one half sister with no major medical problems. Patient has 3 children with no major medical problems. General Exam Limitations: no limitations General appearance: alert, in no apparent distress Head exam: Present: atraumatic Eye exam: Present: normal appearance, PERRL ENT exam: Present: normal oropharynx Neck exam: Present: normal inspection Respiratory exam: Present: normal lung sounds bilaterally. Absent: chest wall tenderness Cardiovascular Exam: Present: regular rate, normal rhythm Expanded Peripheral pulses: 2+: Radial (R), Radial (L), Dorsalis Pedis (R), Dorsalis Pedis (L) GI/Abdominal exam: Present: soft. Absent: tenderness Extremities exam: Present: normal inspection. 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 tach and rotation complaints. Patient does intermittently go in and out of V. tach with rate up to 155. 12/24/18 17:34 Dr. Robins has been paged. EKG Findings - EKG Comments: EKG Findings:: Wide-complex tachycardia consistent with V. tach with rate of 148. MA 94. QRS 188. QT 3:30. QTC 518. Right axis. Wide-complex QRS. Nonspecific ST-T. Medical Decision Making - Medical Decision Making Unable to get a hold of Dr. Aceves. Patient has remained in sinus rhythm since evaluation previously. Patient remained symptom-free. Patient is updated on results. Patient is also updated on plan for calling cardiology however patient states he will not stay in the hospital. Patient is familiar with this problem and has had this multiple times previously. Patient will leave AGAINST MEDICAL ADVICE. Patient is advised to stay in the hospital for monitoring and further evaluation cardiology consult. Patient does demonstrate medical decision making. - Lab Data Result diagrams: 12/24/18 17:13 12/24/18 17:13 Lab Results 12/24/18 12/24/18 12/24/18 Range/Units 17:13 17:13 17:13 WBC 6.4 (3.8-10.6) k/uL RBC 5.21 (4.30-5.90) m/uL Hgb 14.7 (13.0-17.5) gm/dL Hct 42.4 (39.0-53.0) % MCV 81.4 (80.0-100.0) fL MCH 28.2 (25.0-35.0) pg MCHC 34.6 (31.0-37.0) g/dL RDW 12.6 (11.5-15.5) % Plt Count 211 (150-450) k/uL Neutrophils % 58 % Lymphocytes % 28 % Monocytes % 6 % Eosinophils % 4 % Basophils % 2 % Neutrophils # 3.8 (1.3-7.7) k/uL Lymphocytes # 1.8 (1.0-4.8) k/uL Monocytes # 0.4 (0-1.0) k/uL Eosinophils # 0.3 (0-0.7) k/uL Basophils # 0.1 (0-0.2) k/uL PT 11.6 (9.0-12.0) sec INR 1.1 (<1.2) APTT 27.1 (22.0-30.0) sec Sodium 140 (137-145) mmol/L Potassium 3.9 (3.5-5.1) mmol/L Chloride 104 (98-107) mmol/L Carbon Dioxide 24 (22-30) mmol/L Anion Gap 12 mmol/L BUN 20 (9-20) mg/dL Creatinine 1.00 (0.66-1.25) mg/dL Est GFR (CKD-EPI)AfAm >90 (>60 ml/min/1.73 sqM) Est GFR (CKD-EPI)NonAf >90 (>60 ml/min/1.73 sqM) Glucose 157 H (74-99) mg/dL Calcium 10.0 (8.4-10.2) mg/dL Magnesium 1.8 (1.6-2.3) mg/dL Total Bilirubin 1.2 (0.2-1.3) mg/dL AST 26 (17-59) U/L ALT 27 (21-72) U/L Alkaline Phosphatase 72 (38-126) U/L Creatine Kinase 121 (55-170) U/L Troponin I (0.000-0.034) ng/mL Total Protein 8.1 (6.3-8.2) g/dL Albumin 4.9 (3.5-5.0) g/dL TSH 2.140 (0.465-4.680) mIU/L Free T4 1.05 (0.78-2.19) ng/dL Free T3 pg/mL 3.9 (2.8-5.3) pg/ml 12/24/18 Range/Units 17:13 WBC (3.8-10.6) k/uL RBC (4.30-5.90) m/uL Hgb (13.0-17.5) gm/dL Hct (39.0-53.0) % MCV (80.0-100.0) fL MCH (25.0-35.0) pg MCHC (31.0-37.0) g/dL RDW (11.5-15.5) % Plt Count (150-450) k/uL Neutrophils % % Lymphocytes % % Monocytes % % Eosinophils % % Basophils % % Neutrophils # (1.3-7.7) k/uL Lymphocytes # (1.0-4.8) k/uL Monocytes # (0-1.0) k/uL Eosinophils # (0-0.7) k/uL Basophils # (0-0.2) k/uL PT (9.0-12.0) sec INR (<1.2) APTT (22.0-30.0) sec Sodium (137-145) mmol/L Potassium (3.5-5.1) mmol/L Chloride (98-107) mmol/L Carbon Dioxide (22-30) mmol/L Anion Gap mmol/L BUN (9-20) mg/dL Creatinine (0.66-1.25) mg/dL Est GFR (CKD-EPI)AfAm (>60 ml/min/1.73 sqM) Est GFR (CKD-EPI)NonAf (>60 ml/min/1.73 sqM) Glucose (74-99) mg/dL Calcium (8.4-10.2) mg/dL Magnesium (1.6-2.3) mg/dL Total Bilirubin (0.2-1.3) mg/dL AST (17-59) U/L ALT (21-72) U/L Alkaline Phosphatase (38-126) U/L Creatine Kinase (55-170) U/L Troponin I <0.012 (0.000-0.034) ng/mL Total Protein (6.3-8.2) g/dL Albumin (3.5-5.0) g/dL TSH (0.465-4.680) mIU/L Free T4 (0.78-2.19) ng/dL Free T3 pg/mL (2.8-5.3) pg/ml Disposition Clinical Impression: Ventricular tachycardia Disposition: Left Against Medical Advice Instructions (If sedation given, give patient instructions): Tachycardia (ED) Additional Instructions: Please follow-up Wednesday with Dr. Robins. Return for increased heart rate, difficulty breathing or chest pain, passing out, worsening symptoms or other concerns. You are leaving AGAINST MEDICAL ADVICE. Is patient prescribed a controlled substance at d/c from ED?: No Referrals: Tuan Wall MD [Primary Care Provider] - 1-2 days Yobany Robins MD [Family Provider] - 1-2 days Time of Disposition: 19:40
--- NOTE | 2018-12-24 17:38 | XR ---
EXAMINATION TYPE: XR chest 1V portable DATE OF EXAM: 12/24/2018 Comparison: 11/23/2018 Clinical History: 28-year-old male dysrhythmia Findings: Heart normal size. Aorta and pulmonary vasculature within normal limits. Left anterior chest wall AIC D generator with right atrial and right ventricular leads. No consolidation or pleural effusion. Impression: No acute cardiopulmonary process.
[2018-12-24 17:43] LABS: INR 1.1 (<1.2); Partial Thromboplastin Time 27.1 sec (22.0-30.0); Prothrombin Time 11.6 sec (9.0-12.0)
[2018-12-24 17:46] LABS: ALT 27 U/L (21-72); AST 26 U/L (17-59); African American GFR (CKD) >90 (>60 ml/min/1.73 sqM); Albumin 4.9 g/dL (3.5-5.0); Alkaline Phosphatase 72 U/L (38-126); Anion Gap 12 mmol/L; Blood Urea Nitrogen 20 mg/dL (9-20); Carbon Dioxide 24 mmol/L (22-30); Chloride 104 mmol/L (98-107); Creatine Kinase 121 U/L (55-170); Glucose 157 mg/dL (74-99); Magnesium 1.8 mg/dL (1.6-2.3); Potassium 3.9 mmol/L (3.5-5.1); Sodium 140 mmol/L (137-145); Total Bilirubin 1.2 mg/dL (0.2-1.3); Total Protein 8.1 g/dL (6.3-8.2)
[2018-12-24 18:00] LABS: T4, Free (Free Thyroxine) 1.05 ng/dL (0.78-2.19)
[2018-12-24 19:23] VITALS: BP 105/56; PULSE 73
== END 2018-12-24 20:01 | disposition left against medical advice (07) ==
LOC: EC 16:56
DX: I47.2 Ventricular tachycardia (principal); R11.0 Nausea; Z79.899 Other long term (current) drug therapy; Z95.810 Presence of automatic (implantable) cardiac defibrillator; Z95.818 Presence of other cardiac implants and grafts; Z98.890 Other specified postprocedural states; Z53.20 Procedure and treatment not carried out because of patient's decision for unspecified reasons
CPT/HCPCS: 36415; 93005; 84439; 84481; 80053; 82550; 83735; 84443; 84484; 85025; 85610; 85730; 71045; 99285; 96365; 96366 ×2; J3475

== ENCOUNTER 2019-01-01 19:49 | Inpatient (IN) | payer OTHER ==
[2019-01-01 21:00] LABS: Basophils % (A) 0 %; Eosinophils % (A) 0 %; HCT 42.1 % (39.0-53.0); HGB 14.3 gm/dL (13.0-17.5); Lymphocytes # (A) 1.2 k/uL (1.0-4.8); Lymphocytes % (A) 12 %; MCH 27.9 pg (25.0-35.0); MCHC 34.1 g/dL (31.0-37.0); MCV 81.8 fL (80.0-100.0); Mean Platelet Volume 6.7; Monocytes # (A) 0.4 k/uL (0-1.0); Monocytes % (A) 4 %; Neutrophils # (A) 7.9 k/uL (1.3-7.7); Neutrophils % (A) 82 %; Platelet Count 242 k/uL (150-450); RBC 5.15 m/uL (4.30-5.90); RDW 12.5 % (11.5-15.5); WBC 9.6 k/uL (3.8-10.6)
--- NOTE | 2019-01-01 21:04 | XR ---
EXAMINATION TYPE: XR chest 2V DATE OF EXAM: 01/01/2019 COMPARISON: 12/24/2018 HISTORY: Chest pain TECHNIQUE: Frontal and lateral views of the chest are obtained. FINDINGS: Heart and mediastinum are normal. Lungs are clear. Diaphragm is normal. Bony thorax is int act. There is left axillary pacemaker noted. IMPRESSION: Normal chest. No change.
--- NOTE | 2019-01-01 21:06 | ED ---
General Adult HPI - General Chief complaint: Chest Pain Stated complaint: Chest Pain Time Seen by Provider: 01/01/19 19:52 Source: EMS Mode of arrival: EMS Limitations: no limitations - History of Present Illness Initial comments: Dictation was produced using [employer] dictation software. please excuse any grammatical, word or spelling errors. 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 History of Present Illness: Patient is a 28-year-old male has established care with voltage regulator assembler Dr. Aceves. Patient has history of ventricular tachycardia that he was told was secondary to a congenital cardiac disease. Patient has multiple episodes of ventricular tachycardia throughout the day. He states that these things resolve spontaneously. Patient gets these almost every day. Today however he had an episode that lasted for several minutes then improved on its own. Patient Roberto Carlos darted expressing chest pain. Patient was told by her rehab care assistant to seek medical attention if she he ever has chest linda n. Patient has a pacemaker. He states that his chest pain is sharp and located to the substernal area. Does not radiate. No associated diaphoresis. No nausea The ROS documented in this emergency department record has been reviewed and confirmed by me. Those systems with pertinent positive or negative responses have been documented in the HPI. All other systems are other negative and/or no ncontributory. PHYSICAL EXAM: General Impression: Alert and oriented x3, not in acute distress HEENT: Normocephalic atraumatic, extra-ocular movements intact, pupils equal and reactive to light bilaterally, mucous membranes moist. Cardiovascular: Heart regular rate and rhythm, S1&S2 audible, no murmurs, rubs or gallops Chest: Lungs clear to auscultation bilaterally, no rhonchi, no wheeze, no rales, pacemaker in the left chest Abdomen: Bowel sounds present, abdomen soft, non-tender, non-distended, no organomegaly Musculoskeletal: Pulses present and equal in all extremities, no peripheral vicente a Motor: no focal deficits noted Neurological: CN II-XII grossly intact, no focal motor or sensory deficits noted Skin: Intact with no visualized rashes Psych: Normal affect and mood ED course: 28-year-old male presents with chest pain. He has extensive cardiac history. Since with atypical chest pain. Vital signs upon arrival shows heart rate of 55, rest of vital signs within acceptable limits. Patient is currently pain-free at this time. Laboratory evaluation obtained. CBC unremarkable. Coag panel unremarkable. Metabolic panel is unremarkable. Troponin however is elevated 1.430. Pacemaker interrogation was performed. Patient had multiple episodes of ventricular tachycardia today. Earlier approximately 10 AM he had an episode that lasted for approximately 2 hours. Interrogation also shows that patient is having increased frequency and duration of ventricular tachycardia episodes. Patient is supposed to have a scheduled ablation procedure performed by Dr. Robins. She currently on sotalol 120 mg twice a day metoprolol 25 mg twice a day. Discussed patient case with Dr. Parr who had no recommendations at this time however he is recommending the patient be admitted with cardiology consultation. Patient's well-appearing at this time. His heart rate is 60 with sinus rhythm. Given aspirin and started on heparin. patient be admitted to Dr. Carter who is on-call for the group. Patient is understandable agreeable to plan. At this point it is felt that patient's chest pain is secondary to rate dependent ischemia due to multiple tachycardic episodes. EKG interpretation: Ventricular rate 59, sinus bradycardia, AK interval 122, care is 110, QTc 463. No AK prolongation, no QTC prolongation, no ST or T-wave changes noted. EKG compared to 11/25/2018 showing no changes. Overall, this EKG is unremarkable - Related Data Home Medications Medication Instructions Recorded Confirmed Sotalol [Betapace] 120 mg PO BID 11/23/18 01/01/19 Previous Rx's Medication Instructions Recorded Metoprolol Tartrate [Lopressor] 25 mg PO BID #60 tablet 11/25/18 Allergies Allergy/AdvReac Type Severity Reaction Status Date / Time No Known Allergies Allergy Verified 01/01/19 20:38 Review of Systems ROS Statement: Those systems with pertinent positive or pertinent negative responses have been documented in the HPI. ROS Other: All systems not noted in ROS Statement are negative. Past Medical History Past Medical History: Diabetes Mellitus Additional Past Medical History / Comment(s): per pts pt had v tach) x 1 year ago with cardioversion x 2, past concussion 4 years ago., History of Any Multi-Drug Resistant Organisms: None Reported Past Surgical History: AICD, EPS, Heart Catheterization Additional Past Surgical History / Comment(s): CARDIOVERSION, Past Anesthesia/Blood Transfusion Reactions: No Reported Reaction Type of Cardiac Device: Permanent Pacemaker Device Placement Date:: 07/2015 Past Psychological History: No Psychological Hx Reported Smoking Status: Never smoker Past Alcohol Use History: None Reported Past Drug Use History: None Reported - Past Family History Mother Family Medical History: No Reported History Additional Family Medical History / Comment(s): Mother is alive at age 43 with no major medical problem. Father Family Medical History: No Reported History Additional Family Medical History / Comment(s): The patient has no contact with his father does not know his medical history. Sister(s) Family Medical History: No Reported History Additional Family Medical History / Comment(s): Patient has one half sister with no major medical problems. Patient has 3 children with no major medical problems. General Exam Limitations: no limitations Course Vital Signs 01/01/19 01/01/19 19:56 22:09 Temperature 98.6 F 98 F Pulse Rate 55 L 58 L Respiratory 18 18 Rate Blood Pressure 116/74 106/72 O2 Sat by Pulse 97 98 Oximetry Medical Decision Making - Lab Data Result diagrams: 01/01/19 20:20 01/01/19 20:20 Lab Results 01/01/19 01/01/19 01/01/19 Range/Units 20:20 20:20 20:20 WBC 9.6 (3.8-10.6) k/uL RBC 5.15 (4.30-5.90) m/uL Hgb 14.3 (13.0-17.5) gm/dL Hct 42.1 (39.0-53.0) % MCV 81.8 (80.0-100.0) fL MCH 27.9 (25.0-35.0) pg MCHC 34.1 (31.0-37.0) g/dL RDW 12.5 (11.5-15.5) % Plt Count 242 (150-450) k/uL Neutrophils % 82 % Lymphocytes % 12 % Monocytes % 4 % Eosinophils % 0 % Basophils % 0 % Neutrophils # 7.9 H (1.3-7.7) k/uL Lymphocytes # 1.2 (1.0-4.8) k/uL Monocytes # 0.4 (0-1.0) k/uL Eosinophils # 0.0 (0-0.7) k/uL Basophils # 0.0 (0-0.2) k/uL PT 11.2 (9.0-12.0) sec INR 1.1 (<1.2) APTT 24.0 (22.0-30.0) sec Sodium 140 (137-145) mmol/L Potassium 4.5 (3.5-5.1) mmol/L Chloride 107 (98-107) mmol/L Carbon Dioxide 22 (22-30) mmol/L Anion Gap 11 mmol/L BUN 24 H (9-20) mg/dL Creatinine 1.05 (0.66-1.25) mg/dL Est GFR (CKD-EPI)AfAm >90 (>60 ml/min/1.73 sqM) Est GFR (CKD-EPI)NonAf >90 (>60 ml/min/1.73 sqM) Glucose 115 H (74-99) mg/dL Calcium 10.1 (8.4-10.2) mg/dL Magnesium 2.0 (1.6-2.3) mg/dL Total Bilirubin 1.2 (0.2-1.3) mg/dL AST 34 (17-59) U/L ALT 32 (21-72) U/L Alkaline Phosphatase 61 (38-126) U/L Troponin I (0.000-0.034) ng/mL Total Protein 7.8 (6.3-8.2) g/dL Albumin 4.6 (3.5-5.0) g/dL 01/01/19 Range/Units 20:20 WBC (3.8-10.6) k/uL RBC (4.30-5.90) m/uL Hgb (13.0-17.5) gm/dL Hct (39.0-53.0) % MCV (80.0-100.0) fL MCH (25.0-35.0) pg MCHC (31.0-37.0) g/dL RDW (11.5-15.5) % Plt Count (150-450) k/uL Neutrophils % % Lymphocytes % % Monocytes % % Eosinophils % % Basophils % % Neutrophils # (1.3-7.7) k/uL Lymphocytes # (1.0-4.8) k/uL Monocytes # (0-1.0) k/uL Eosinophils # (0-0.7) k/uL Basophils # (0-0.2) k/uL PT (9.0-12.0) sec INR (<1.2) APTT (22.0-30.0) sec Sodium (137-145) mmol/L Potassium (3.5-5.1) mmol/L Chloride (98-107) mmol/L Carbon Dioxide (22-30) mmol/L Anion Gap mmol/L BUN (9-20) mg/dL Creatinine (0.66-1.25) mg/dL Est GFR (CKD-EPI)AfAm (>60 ml/min/1.73 sqM) Est GFR (CKD-EPI)NonAf (>60 ml/min/1.73 sqM) Glucose (74-99) mg/dL Calcium (8.4-10.2) mg/dL Magnesium (1.6-2.3) mg/dL Total Bilirubin (0.2-1.3) mg/dL AST (17-59) U/L ALT (21-72) U/L Alkaline Phosphatase (38-126) U/L Troponin I 1.430 H* (0.000-0.034) ng/mL Total Protein (6.3-8.2) g/dL Albumin (3.5-5.0) g/dL Disposition Clinical Impression: Chest pain Disposition: ADMITTED IP TO THIS [facility] Condition: Fair Referrals: Tuan Wall MD [Primary Care Provider] - 1-2 days Decision Time: 22:30
[2019-01-01 21:08] LABS: INR 1.1 (<1.2); Prothrombin Time 11.2 sec (9.0-12.0)
[2019-01-01 21:19] LABS: ALT 32 U/L (21-72); AST 34 U/L (17-59); African American GFR (CKD) >90 (>60 ml/min/1.73 sqM); Albumin 4.6 g/dL (3.5-5.0); Alkaline Phosphatase 61 U/L (38-126); Anion Gap 11 mmol/L; Blood Urea Nitrogen 24 mg/dL (9-20); Calcium 10.1 mg/dL (8.4-10.2); Carbon Dioxide 22 mmol/L (22-30); Chloride 107 mmol/L (98-107); Glucose 115 mg/dL (74-99); Potassium 4.5 mmol/L (3.5-5.1); Sodium 140 mmol/L (137-145); Total Bilirubin 1.2 mg/dL (0.2-1.3); Total Protein 7.8 g/dL (6.3-8.2)
[2019-01-01] MEDS ORDERED: ASPIRIN 81 MG PO STA (21:42)
[2019-01-01] MEDS ORDERED: HEPARIN SODIUM,PORCINE 5,000 UNIT/ML 1 ML VIAL IV PRN (21:43)
[2019-01-01] MEDS ORDERED: HEPARIN SODIUM,PORCINE 5,000 UNIT/ML 1 ML VIAL IV ONE (21:43)
[2019-01-01] MEDS: HEPARIN SOD,PORK IN 0.45% NACL 25,000 UNIT in 0.45% NACL 1 250ML.BAG IV SCH (22:07)
[2019-01-01] MEDS ORDERED: NALOXONE 0.4 MG/ML 1 ML VIAL IV PRN (22:30)
[2019-01-01 23:16] LABS: Amphetamine Screen,Urine Not Detected (NotDetected); Barbiturate Screen,Urine Not Detected (NotDetected); Benzodiazepines Screen,Urine Not Detected (NotDetected); Cocaine Screen,Urine Not Detected (NotDetected); Methadone Screen, Urine Not Detected (NotDetected); Opiate Screen,Urine Not Detected (NotDetected); Oxycodone Screen, Urine Not Detected (NotDetected); Phencyclidine Screen,Urine Not Detected (NotDetected); Tricyclic Antidepressant,Urine Not Detected (NotDetected); Urn Cannabinoid Scrn Not Detected (NotDetected)
[2019-01-01 23:35] LABS: Glucose,Whole Blood 170 mg/dL (75-99)
[2019-01-01 23:55] VITALS: BMI 24.3
[2019-01-02] MEDS: SOTALOL 120 MG TAB PO SCH ×2 (00:15→08:06)
[2019-01-02] MEDS: METOPROLOL TARTRATE 25 MG TAB PO SCH ×3 (00:15→21:05)
[2019-01-02] MEDS: SODIUM CHLORIDE 0.9% 1,000 ML IV SCH ×2 (00:32→23:57)
[2019-01-02 04:33] LABS: Basophils % (A) 1 %; Eosinophils # (A) 0.1 k/uL (0-0.7); Eosinophils % (A) 1 %; HCT 40.9 % (39.0-53.0); Lymphocytes # (A) 2.1 k/uL (1.0-4.8); Lymphocytes % (A) 24 %; MCH 28.6 pg (25.0-35.0); MCHC 34.3 g/dL (31.0-37.0); MCV 83.2 fL (80.0-100.0); Mean Platelet Volume 6.7; Monocytes # (A) 0.6 k/uL (0-1.0); Monocytes % (A) 7 %; Neutrophils # (A) 5.9 k/uL (1.3-7.7); Neutrophils % (A) 66 %; Platelet Count 218 k/uL (150-450); RBC 4.91 m/uL (4.30-5.90); RDW 12.8 % (11.5-15.5); WBC 8.9 k/uL (3.8-10.6)
[2019-01-02 05:19] LABS: African American GFR (CKD) >90 (>60 ml/min/1.73 sqM); Anion Gap 7 mmol/L; Blood Urea Nitrogen 23 mg/dL (9-20); Calcium 9.2 mg/dL (8.4-10.2); Carbon Dioxide 26 mmol/L (22-30); Chloride 104 mmol/L (98-107); Glucose 105 mg/dL (74-99); Potassium 4.6 mmol/L (3.5-5.1); Sodium 137 mmol/L (137-145)
--- NOTE | 2019-01-02 14:45 | P.HPIM ---
History of Present Illness H&P Date: 01/02/19 This is a 28-year-old male patient of Dr. Wall with past medical history of arrhythmogenic cardiomyopathy status post ICD placement in 2016 under the care of Dr. Robins. Patient is on sotalol and Lopressor. He states he has followed up with Dr. Aceves since his last hospitalization. He states that he started having palpitations which then seemed to resolve and then he started feeling nauseated followed by chest pain. Patient denies ever having any chest pain when he has been in ventricular tachycardia in the past. Chest pain was nonradiating to the substernal area and sharp in nature. He denies any diaphoresis, no nausea. His heart rate was up to 166 and he knows his threshold is at 175. He states his heart rate was fluctuating between 130 and 160s. He usually uses valsalva maneuver with resolution of tachycardia. Patient states that he was playing with his children inside the house at the time of onset of symptoms. He is scheduled for an ablation on February [address] Robins. He last saw Dr. Robins 3-4 weeks ago and there were no changes in medications at that time. Patient came into [facility] emergency center for evaluation. EKG sinus rhythm rate of 59. CBC was unremarkable as well as basic metabolic panel. Troponin 1.430 and repeat 2.8-0. Urine drug screen was negative. Pacemaker interrogation was performed while in the emergency center. Patient had multiple episodes of ventricular tachycardia. One episode around 10 AM that lasted for 2 hours. He is also had increased frequency and duration of ventricular tachycardic episodes patient was started on aspirin and heparin drip.patient has been admitted to the cardiac stepdown unit and is in ICU as an overflow. Patient denies having any chest pain at the time of evaluation. Review of Systems Constitutional: Denies anorexia, Denies chills, Denies fatigue, Denies fever, Denies poor appetite, Denies weight loss Eyes: denies blurred vision, denies pain Ears, nose, mouth and throat: Denies dysphagia, Denies headache, Denies sore throat, Denies vertigo Cardiovascular: Reports chest pain, Reports palpitations, Denies decreased exercise tolerance, Denies dyspnea on exertion, Denies edema, Denies leg edema, Denies shortness of breath, Denies syncope Respiratory: Denies cough, Denies cough with sputum, Denies dyspnea, Denies excessive sputum, Denies hemoptysis, Denies home oxygen, Denies wheezing Gastrointestinal: Reports nausea, Reports vomiting, Denies abdominal pain, Denies diarrhea Genitourinary: Denies dysuria, Denies urinary retention Musculoskeletal: Denies muscle weakness, Denies myalgias Integumentary: Denies pruritus, Denies rash, Denies wounds Neurological: Denies change in mentation, Denies change in speech, Denies numbness, Denies seizures, Denies weakness Psychiatric: Denies anxiety, Denies depression Endocrine: Denies fatigue, Denies weight change Past Medical History Past Medical History: Diabetes Mellitus Additional Past Medical History / Comment(s): Cardiac History, arrthymogenic displasia History of Any Multi-Drug Resistant Organisms: None Reported Past Surgical History: AICD, EPS, Heart Catheterization Additional Past Surgical History / Comment(s): CARDIOVERSION Past Anesthesia/Blood Transfusion Reactions: No Reported Reaction Type of Cardiac Device: Permanent Pacemaker Device Placement Date:: 07/2015 Past Psychological History: No Psychological Hx Reported Additional Psychological History / Comment(s): . Smoking Status: Never smoker Past Alcohol Use History: None Reported Additional Past Alcohol Use History / Comment(s): Patient is a lifelong nonsmoker, no marijuana or illicit drug use, no alcohol use. Past Drug Use History: None Reported - Past Family History Mother Family Medical History: No Reported History Additional Family Medical History / Comment(s): Mother is alive at age 43 with no major medical problem. Father Family Medical History: No Reported History Additional Family Medical History / Comment(s): The patient has no contact with his father does not know his medical history. Sister(s) Family Medical History: No Reported History Additional Family Medical History / Comment(s): Patient has one half sister with no major medical problems. Patient has 3 children with no major medical problems. Medications and Allergies Home Medications Medication Instructions Recorded Confirmed Type Sotalol [Betapace] 120 mg PO BID 11/23/18 01/01/19 History Metoprolol Tartrate [Lopressor] 25 mg PO BID #60 tablet 11/25/18 01/01/19 Rx Allergies Allergy/AdvReac Type Severity Reaction Status Date / Time No Known Allergies Allergy Verified 01/01/19 20:38 Physical Exam Vitals: Vital Signs Temp Pulse Resp BP Pulse Ox 01/02/19 09:00 56 L 13 121/64 01/02/19 08:00 98.6 F 63 14 116/75 01/02/19 07:00 49 L 11 L 116/67 01/02/19 06:00 49 L 10 L 108/65 01/02/19 05:00 51 L 12 111/61 01/02/19 04:00 97.6 F 49 L 14 105/60 99 01/02/19 00:00 99.5 F 53 L 14 115/66 100 01/01/19 23:33 58 L 15 01/01/19 22:58 99.5 F 01/01/19 22:09 98 F 58 L 18 106/72 98 01/01/19 19:56 98.6 F 55 L 18 116/74 97 Intake and Output 01/01/19 01/02/19 01/02/19 22:59 06:59 14:59 Intake Total 89.25 420 Output Total 0 Balance 89.25 420 Intake: Intake, IV Titration 89.25 20 Amount Heparin Sod,Pork in 0.45% 9.25 NaCl 25,000 unit In 0.45 % NaCl 1 250ml.bag @ 12 UNITS/KG/HR 9.253 mls/hr IV .Q24H JOANNA Rx#: [id number] Sodium Chloride 0.9% 1, 80 20 000 ml @ 20 mls/hr IV . Q24H JOANNA Rx#:[id number] Oral 400 Output: Urine 0 Other: Voiding Method Urinal Urinal Weight 77.111 kg 77.5 kg Gen: This is a 28-year-old male. He is resting in ICU bed and appears to be comfortable and in no acute distress. HEENT: Head is atraumatic, normocephalic. Pupils equal, round. Sclerae is anict jamil. Conjunctiva pink. NECK: Supple. No JVD. No lymphadenopathy. No thyromegaly. LUNGS: Clear to auscultation. No wheezes or rhonchi. No intercostal retractions. HEART: Regular rate and rhythm. No murmur. ABDOMEN: Soft. Bowel sounds are present. No masses. No tenderness. EXTREMITIES: No pedal edema. No calf tenderness. Dorsalis pedis +2 bilaterally. NEUROLOGICAL: Patient is awake, alert and oriented x3. Cranial nerves 2 through 12 are grossly intact. Results CBC & Chem 7: 01/02/19 04:21 01/02/19 04:21 Labs: Abnormal Lab Results - Last 24 Hours (Table) 01/01/19 01/01/19 01/01/19 Range/Units 20:20 20:20 20:20 Neutrophils # 7.9 H (1.3-7.7) k/uL APTT (22.0-30.0) sec BUN 24 H (9-20) mg/dL Glucose 115 H (74-99) mg/dL POC Glucose (mg/dL) (75-99) mg/dL Troponin I 1.430 H* (0.000-0.034) ng/mL 01/01/19 01/02/19 01/02/19 Range/Units 23:30 04:21 04:21 Neutrophils # (1.3-7.7) k/uL APTT 55.2 H (22.0-30.0) sec BUN 23 H (9-20) mg/dL Glucose 105 H (74-99) mg/dL POC Glucose (mg/dL) 170 H (75-99) mg/dL Troponin I (0.000-0.034) ng/mL Thrombosis Risk Factor Assmnt - DVT/VTE Prophylaxis DVT/VTE Prophylaxis: Pharmacologic Prophylaxis ordered - Choose All That Apply Other Risk Factors: No Other congenital or acquired thrombophilia - If yes, enter type in comment: No Assessment and Plan Plan: 1. Chest pain with elevated troponins, possible non-ST elevated myocardial infarction. Continue heparin drip and aspirin. Cardiology consult. Continue Lopressor 25 mg twice daily, sotalol 120 mg twice daily. 2. Ventricular tachycardia, more frequent and longer episodes found on interrogation. Patient is scheduled for ablation February [address] Robins. 3. Arrhythmogenic cardiomyopathy status post ICD placement. 4. DVT prophylaxis. Heparin drip. 5. GI prophylaxis. Pepcid. Patient will be admitted to the hospital for a minimum of 2 night stay. Discharge plan: Return home. Impression and plan of care have been directed as dictated by the signing physician. Yulissa Dsa nurse practitioner acting as scribe for signing physic
--- NOTE | 2019-01-02 16:22 | ECHOF ---
Referral Reason:Chest Pain MEASUREMENTS -------- HEIGHT: 177.8 cm WEIGHT: 77.1 kg BP: 101/64 RVIDd: 3.4 cm (< 3.3) IVSd: 1.2 cm (0.6 - 1.1) LVIDd: 4.3 cm (3.9 - 5.3) LVPWd: 1.2 cm (0.6 - 1.1) IVSs: 1.8 cm LVIDs: 2.9 cm LVPWs: 1.6 cm LAESV Index (A-L): 19.67 ml/m Ao Diam: 3.1 cm (2.0 - 3.7) AV Cusp: 1.9 cm (1.5 - 2.6) LA Diam: 3.2 cm (2.7 - 3.8) MV E Tony: 0.95 m/s MV DecT: 322 ms MV A Tony: 0.44 m/s MV E/A Ratio: 2.15 RAP: 5.00 mmHg RVSP: 27.03 mmHg FINDINGS -------- Pacerwire seen in RV and RA. This was a technically adequate study. The left ventricular size is normal. There is borderline concentric left ventricular hypertrophy. Overall left ventricular systolic function is normal with, an EF between 55 - 60 %. The diastolic filling pattern is normal for the age of the patient. Septal wall motion is delayed, and consistent with ventricular pacing. The right ventricle is normal in size. Left atrium is normal size by volume. The right atrial size is normal. Interatrial and interventricular septum intact. The aortic valve is trileaflet, and appears structurally normal. No aortic stenosis or regurgitation. The mitral valve is normal. Mild mitral regurgitation is present. Mild tricuspid regurgitation present. There is no evidence of pulmonary hypertension. The right v entricular systolic pressure, as measured by Doppler, is 27.03mmHg. Trace/mild (physiologic) pulmonic regurgitation. The aortic root size is normal. The inferior vena cava was not well visualized. There is no pericardial effusion. CONCLUSIONS -------- 1. Pacerwire seen in RV and RA. 2. This was a technically adequate study. 3. The left ventricular size is normal. 4. There is borderline concentric left ventricular hypertrophy. 5. Overall left ventricular systolic function is normal with, an EF between 55 - 60 %. 6. The diastolic filling pattern is normal for the age of the patient. 7. Septal wall motion is delayed, and consistent with ventricular pacing. 8. Left atrium is normal size by volume. 9. The right atrial size is normal. 10. The aortic valve is trileaflet, and appears structurally normal. No aortic stenosis or regurgitat ion. 11. The mitral valve is normal. 12. Mild mitral regurgitation is present. 13. Mild tricuspid regurgitation present. 14. There is no evidence of pulmonary hypertension. 15. Trace/mild (physiologic) pulmonic regurgitation. 16. The aortic root size is normal. 17. The inferior vena cava was not well visualized. 18. There is no pericardial effusion. CABLE TV INSTALLER: Mattie Reyes RDCS
--- NOTE | 2019-01-02 17:23 | P.CRDCN ---
History of Present Illness Consult date: 01/02/19 History of present illness: This is a 28-year-old gentleman with history of arrhythmogenic cardiomyopathy status post AICD placement who came to the hospital with complaints of chest pain. The pain was felt in the right parasternal region. Lasted about an hour. Then subsided spontaneously. In the emergency room patient was evaluated and AICD was interrogated. Patient had several episodes of ventricular tachycardia. Patient was admitted for further evaluation. Also because of abnormal troponin values. Patient is seemed to be clinically stable today. Patient has had abnormal troponin values in the past also. Had a cardiac catheterization 2014 which showed normal coronary arteries. Most probably these abnormal troponin values could be related to episodes of V. tach. Call get an echocardiogram. We'll also get consult from Dr. Robins. If the LV function is normal, patient could be discharged home. However, we'll get the opinion of Dr. Robins reg arding the current episodes of ventricular tachycardia. Review of Systems As per the chart Past Medical History Past Medical History: Diabetes Mellitus Additional Past Medical History / Comment(s): Cardiac History, arrthymogenic displasia History of Any Multi-Drug Resistant Organisms: None Reported Past Surgical History: AICD, EPS, Heart Catheterization Additional Past Surgical History / Comment(s): CARDIOVERSION Past Anesthesia/Blood Transfusion Reactions: No Reported Reaction Type of Cardiac Device: Permanent Pacemaker Device Placement Date:: 07/2015 Past Psychological History: No Psychological Hx Reported Additional Psychological History / Comment(s): . Smoking Status: Never smoker Past Alcohol Use History: None Reported Additional Past Alcohol Use History / Comment(s): Patient is a lifelong nonsmoker, no marijuana or illicit drug use, no alcohol use. Past Drug Use History: None Reported - Past Family History Mother Family Medical History: No Reported History Additional Family Medical History / Comment(s): Mother is alive at age 43 with no major medical problem. Father Family Medical History: No Reported History Additional Family Medical History / Comment(s): The patient has no contact with his father does not know his medical history. Sister(s) Family Medical History: No Reported History Additional Family Medical History / Comment(s): Patient has one half sister with no major medical problems. Patient has 3 children with no major medical problems. Medications and Allergies Home Medications Medication Instructions Recorded Confirmed Type Sotalol [Betapace] 120 mg PO BID 11/23/18 01/01/19 History Metoprolol Tartrate [Lopressor] 25 mg PO BID #60 tablet 11/25/18 01/01/19 Rx Allergies Allergy/AdvReac Type Severity Reaction Status Date / Time No Known Allergies Allergy Verified 01/01/19 20:38 Physical Exam Vitals: Vital Signs Temp Pulse Resp BP Pulse Ox 01/02/19 16:00 58 L 12 104/55 98 01/02/19 15:00 49 L 16 104/51 01/02/19 14:00 51 L 17 108/62 01/02/19 13:00 51 L 14 101/64 01/02/19 12:00 59 L 15 108/60 98 01/02/19 11:00 52 L 10 L 106/59 01/02/19 10:00 51 L 13 114/64 01/02/19 09:00 56 L 13 121/64 01/02/19 08:00 98.6 F 63 14 116/75 01/02/19 07:00 49 L 11 L 116/67 01/02/19 06:00 49 L 10 L 108/65 01/02/19 05:00 51 L 12 111/61 01/02/19 04:00 97.6 F 49 L 14 105/60 99 01/02/19 00:00 99.5 F 53 L 14 115/66 100 01/01/19 23:33 58 L 15 01/01/19 22:58 99.5 F 01/01/19 22:09 98 F 58 L 18 106/72 98 01/01/19 19:56 98.6 F 55 L 18 116/74 97 Intake and Output 01/02/19 01/02/19 01/02/19 06:59 14:59 22:59 Intake Total 89.25 820 Output Total 0 900 800 Balance 89.25 -80 -800 Intake: Intake, IV Titration 89.25 20 Amount Heparin Sod,Pork in 0.45% 9.25 NaCl 25,000 unit In 0.45 % NaCl 1 250ml.bag @ 12 UNITS/KG/HR 9.253 mls/hr IV .Q24H [facility] Rx#: [id number] Sodium Chloride 0.9% 1, 80 20 000 ml @ 20 mls/hr IV . Q24H [facility] Rx#:[id number] Oral 800 Output: Urine 0 900 800 Other: Voiding Method Urinal Urinal Weight 77.5 kg GENERAL EXAM: Patient is alert and oriented and doesn't appear to be in any acute distress HEENT: Normocephalic. Normal reaction of pupils, equal size, normal range of extraocular motion. No erythema or exudates in the throat. NECK: No masses, no nuchal rigidity. CHEST: No chest wall deformity. LUNGS: Equal air entry with no crackles or wheeze. HEART: S1 and S2 normal with no audible mumurs or gallops. Regular rhythm, femorals equal on both sides.. ABDOMEN: No hepatosplenomegaly, normal bowel sounds, no guarding or rigidity. SKIN: No rashes CENTRAL NERVOUS SYSTEM: No focal deficits. EXTREMITIES: No cyanosis, clubbing or edema. Results 01/02/19 04:21 01/02/19 04:21 Cardiac Enzymes 01/01/19 01/01/19 01/02/19 Range/Units 20:20 20:20 12:53 AST 34 (17-59) U/L Troponin I 1.430 H* 2.820 H* (0.000-0.034) ng/mL Coagulation 01/01/19 01/02/19 Range/Units 20:20 04:21 PT 11.2 (9.0-12.0) sec APTT 24.0 55.2 H (22.0-30.0) sec CBC 01/01/19 01/02/19 Range/Units 20:20 04:21 WBC 9.6 8.9 (3.8-10.6) k/uL RBC 5.15 4.91 (4.30-5.90) m/uL Hgb 14.3 14.0 (13.0-17.5) gm/dL Hct 42.1 40.9 (39.0-53.0) % Plt Count 242 218 (150-450) k/uL Comprehensive Metabolic Panel 01/01/19 01/02/19 Range/Units 20:20 04:21 Sodium 140 137 (137-145) mmol/L Potassium 4.5 4.6 (3.5-5.1) mmol/L Chloride 107 104 (98-107) mmol/L Carbon Dioxide 22 26 (22-30) mmol/L BUN 24 H 23 H (9-20) mg/dL Creatinine 1.05 0.99 (0.66-1.25) mg/dL Glucose 115 H 105 H (74-99) mg/dL Calcium 10.1 9.2 (8.4-10.2) mg/dL AST 34 (17-59) U/L ALT 32 (21-72) U/L Alkaline Phosphatase 61 (38-126) U/L Total Protein 7.8 (6.3-8.2) g/dL Albumin 4.6 (3.5-5.0) g/dL Current Medications Generic Name Dose Route Start Last Admin Trade Name Freq PRN Reason Stop Dose Admin Aspirin 81 mg 01/03/19 09:00 Aspirin PO DAILY [facility] Famotidine 20 mg 01/03/19 09:00 Pepcid PO DAILY [facility] Heparin Sodium (Porcine) 0 unit 01/01/19 21:43 Heparin IV PER PROTOCOL PRN Low PTT Protocol Heparin Sodium/Sodium Chloride 250 mls @ 9.253 mls/hr 01/01/19 21:45 01/01/19 22:07 25,000 unit/ Sodium Chloride IV 12 units/kg/hr .Q24H [facility] 9.253 mls/hr Administration Protocol 12 UNITS/KG/HR Sodium Chloride 1,000 mls @ 20 mls/hr 01/01/19 22:30 01/02/19 00:32 Saline 0.9% IV 20 mls/hr .Q24H [facility] Administration Magnesium Oxide 400 mg 01/03/19 09:00 Mag-Ox PO DAILY [facility] Metoprolol Tartrate 25 mg 01/01/19 22:45 01/02/19 08:06 Lopressor PO 25 mg BID [facility] Administration Naloxone HCl 0.2 mg 01/01/19 22:30 Narcan IV Q2M PRN Opioid Reversal Sotalol HCl 160 mg 01/02/19 21:00 Betapace PO BID [facility] Intake and Output 01/02/19 01/02/19 01/02/19 06:59 14:59 22:59 Intake Total 89.25 820 Output Total 0 900 800 Balance 89.25 -80 -800 Intake: Intake, IV Titration 89.25 20 Amount Heparin Sod,Pork in 0.45% 9.25 NaCl 25,000 unit In 0.45 % NaCl 1 250ml.bag @ 12 UNITS/KG/HR 9.253 mls/hr IV .Q24H [facility] Rx#: [id number] Sodium Chloride 0.9% 1, 80 20 000 ml @ 20 mls/hr IV . Q24H [facility] Rx#:[id number] Oral 800 Output: Urine 0 900 800 Other: Voiding Method Urinal Urinal Weight 77.5 kg 01/02/19 04:21 01/02/19 04:21 EKG Interpretations (text) Sinus rhythm with a right superior axis and T-wave inversion in the anterior leads Assessment and Plan (1) Arrhythmogenic right ventricular tachycardia Current Visit: Yes Status: Acute Code(s): I47.2 - VENTRICULAR TACHYCARDIA SNOMED Code(s): 88760978 (2) Chest pain Current Visit: Yes Status: Acute Code(s): R07.9 - CHEST PAIN, UNSPECIFIED SNOMED Code(s): 14864487 (3) Elevated troponin Current Visit: No Status: Acute Code(s): R74.8 - ABNORMAL LEVELS OF OTHER SERUM ENZYMES SNOMED Code(s): 799938841 (4) Ventricular tachycardia Current Visit: No Status: Acute Code(s): I47.2 - VENTRICULAR TACHYCARDIA SNOMED Code(s): 71832178 Plan: Patient is critically stable. His elevated troponin value. Could be related to episodes of V. tach. Patient had similar elevation of the troponin is in the past. Previous cardiac cath showed normal coronary arteries. Consult Dr. Robins regarding management of recurrent V. tach. No cardiac catheterization at this time
[2019-01-02] MEDS: SOTALOL 80 MG TAB PO SCH (21:06)
[2019-01-02] MEDS: HEPARIN SOD,PORK IN 0.45% NACL 25,000 UNIT in 0.45% NACL 1 250ML.BAG IV SCH (21:14)
[2019-01-03 04:11] VITALS: TEMP 97.7
[2019-01-03] MEDS: SOTALOL 80 MG TAB PO SCH (08:46)
[2019-01-03] MEDS: METOPROLOL TARTRATE 25 MG TAB PO SCH (08:46)
[2019-01-03] MEDS ORDERED: MAGNESIUM OXIDE 400 MG TAB PO SCH (09:00)
[2019-01-03] MEDS ORDERED: ASPIRIN 81 MG PO SCH (09:00)
[2019-01-03] MEDS ORDERED: FAMOTIDINE 20 MG TAB PO SCH (09:00)
[2019-01-03] MEDS ORDERED: MEXILETINE 150 MG CAP PO SCH (12:45)
--- NOTE | 2019-01-03 12:45 | P.CRDCN ---
History of Present Illness History of present illness: This is Dr. Robins dictating a consult on this patient The patient was interviewed and examined by me IMPRESSION / ASSESSMENT: Recurrent ventricular tachycardia 155 beats a minute, despite sotalol 120 mg twice daily and metoprolol No ICD therapies since it was below the detection interval Associated chest discomfort nausea vomiting for sustained V. tach with abnormal cardiac enzymes consistent with demand ischemia Arrhythmogenic dysplasia Prolonged QT interval with sotalol 160 mg twice daily with an absolute QT interval of between 520-560 ms History of AV akanksha reentrant tachycardia, no recent recurrences PLAN: Reduce sotalol back to 120 mg twice daily IV magnesium 2 g By mouth magnesium for 2 weeks Mexiletine 150 g twice daily Proceed with VT ablation within the next few weeks Continue metoprolol He will hold sotalol and mexiletine one day prior to his VT ablation HPI Patient was playing with his children, when he started experiencing palpitations initially this would come and go but later became sustained. It was associated with some chest pressure and nausea vomiting. No syncope His ICD was interrogated and it shows ventricular tachycardia below the VT detection zone with A-V dissociation Elevated troponins consistent with demand ischemia secondary to sustained VT ROS: No fever chills or rigors, no cough, phlegm or expectoration, no nausea, vomiting or diarrhea, no hematuria, dysuria, no musculoskeletal complaints, no strokes or seizures, no skin lesions. EXAMINATION: Afebrile 97.7F, pulse rate in the 50s, asymptomatic at this time resting comf ortably in a chair Normal respirations Blood pressure 119/55 mmHg Breath sounds are clear no rhonchi no crackles Heart sounds S1-S2 normal no murmurs or gallops. Abdomen soft nontender Extremities warm no edema REVIEW OF LABS, ECG & MEDICAL DATA Chest x-ray normal Baseline 12-lead ECG on 01 of January shows sinus rhythm normal PA QRS deep T-wave inversions V1 through V4 which are old and a consistent with arrhythmogenic dysplasia Hemoglobin 14.0, sodium 137 potassium 4.6 BUN 23 creatinine 0.99 Troponins abnormal, peak troponin 3.69 with an upward and downward trend Past Medical History Past Medical History: Diabetes Mellitus Additional Past Medical History / Comment(s): Cardiac History, arrthymogenic displasia History of Any Multi-Drug Resistant Organisms: None Reported Past Surgical History: AICD, EPS, Heart Catheterization Additional Past Surgical History / Comment(s): CARDIOVERSION Past Anesthesia/Blood Transfusion Reactions: No Reported Reaction Type of Cardiac Device: Permanent Pacemaker Device Placement Date:: 07/2015 Past Psychological History: No Psychological Hx Reported Additional Psychological History / Comment(s): . Smoking Status: Never smoker Past Alcohol Use History: None Reported Additional Past Alcohol Use History / Comment(s): Patient is a lifelong nonsmoker, no marijuana or illicit drug use, no alcohol use. Past Drug Use History: None Reported - Past Family History Mother Family Medical History: No Reported History Additional Family Medical History / Comment(s): Mother is alive at age 43 with no major medical problem. Father Family Medical History: No Reported History Additional Family Medical History / Comment(s): The patient has no contact with his father does not know his medical history. Sister(s) Family Medical History: No Reported History Additional Family Medical History / Comment(s): Patient has one half sister with no major medical problems. Patient has 3 children with no major medical problems. Medications and Allergies Home Medications Medication Instructions Recorded Confirmed Type Metoprolol Tartrate [Lopressor] 25 mg PO BID #60 tablet 11/25/18 01/01/19 Rx Magnesium Oxide [Mag-Ox] 400 mg PO DAILY #60 tablet 01/03/19 Rx Sotalol [Betapace] 120 mg PO BID #1 tablet 01/03/19 Rx Allergies Allergy/AdvReac Type Severity Reaction Status Date / Time No Known Allergies Allergy Verified 01/01/19 20:38 Physical Exam Vitals: Vital Signs Temp Pulse Resp BP Pulse Ox 01/03/19 08:00 66 12 119/55 98 01/03/19 04:00 97.7 F 49 L 14 119/55 99 01/03/19 03:00 49 L 10 L 01/03/19 02:00 49 L 12 01/03/19 01:00 49 L 13 01/03/19 00:26 49 L 15 01/03/19 00:00 98.1 F 52 L 18 108/59 01/02/19 23:00 16 01/02/19 22:00 49 L 12 01/02/19 21:00 49 L 12 111/67 01/02/19 20:00 97.7 F 50 L 15 99/59 01/02/19 19:00 51 L 15 127/82 01/02/19 18:00 49 L 16 103/67 01/02/19 17:00 50 L 12 100/63 01/02/19 16:00 58 L 12 104/55 98 01/02/19 15:00 49 L 16 104/51 01/02/19 14:00 51 L 17 108/62 01/02/19 13:00 51 L 14 101/64 Intake and Output 01/02/19 01/03/19 01/03/19 22:59 06:59 14:59 Intake Total 533.899 140 200 Output Total 800 0 400 Balance -266.101 140 -200 Intake: Intake, IV Titration 233.899 40 Amount Heparin Sod,Pork in 0.45% 213.899 NaCl 25,000 unit In 0.45 % NaCl 1 250ml.bag @ 12 UNITS/KG/HR 9.253 mls/hr IV .Q24H [facility] Rx#: [id number] Sodium Chloride 0.9% 1, 20 40 000 ml @ 20 mls/hr IV . Q24H [facility] Rx#:[id number] Oral 300 100 200 Output: Urine 800 0 400 Other: Voiding Method Urinal Urinal Urinal # Voids 1 1 Weight 80.7 kg Results 01/02/19 04:21 01/02/19 04:21 Cardiac Enzymes 01/02/19 01/02/19 01/03/19 Range/Units 12:53 18:59 01:10 Troponin I 2.820 H* 3.210 H* 3.690 H* (0.000-0.034) ng/mL 01/03/19 Range/Units 04:11 Troponin I 3.150 H* (0.000-0.034) ng/mL Coagulation 01/03/19 Range/Units 04:11 APTT 46.6 H (22.0-30.0) sec Current Medications Generic Name Dose Route Start Last Admin Trade Name Freq PRN Reason Stop Dose Admin Aspirin 81 mg 01/03/19 09:00 01/03/19 08:45 Aspirin PO 81 mg DAILY [facility] Administration Famotidine 20 mg 01/03/19 09:00 01/03/19 08:46 Pepcid PO 20 mg DAILY [facility] Administration Heparin Sodium (Porcine) 0 unit 01/01/19 21:43 Heparin IV PER PROTOCOL PRN Low PTT Protocol Heparin Sodium/Sodium Chloride 250 mls @ 9.253 mls/hr 01/01/19 21:45 01/02/19 21:14 25,000 unit/ Sodium Chloride IV 12 units/kg/hr .Q24H [facility] 9.253 mls/hr Administration Protocol 12 UNITS/KG/HR Sodium Chloride 1,000 mls @ 20 mls/hr 01/01/19 22:30 01/02/19 23:57 Saline 0.9% IV 20 mls/hr .Q24H [facility] Administration Magnesium Sulfate/Dextrose 1 100 mls @ 100 mls/hr 01/03/19 13:00 gm/ IV Solution IVPB 01/03/19 14:59 Q1H [facility] Magnesium Oxide 400 mg 01/03/19 09:00 01/03/19 08:45 Mag-Ox PO 400 mg DAILY [facility] Administration Metoprolol Tartrate 25 mg 01/01/19 22:45 01/03/19 08:46 Lopressor PO 25 mg BID [facility] Administration Mexiletine HCl 150 mg 01/03/19 12:45 Mexitil PO Q12HR [facility] Naloxone HCl 0.2 mg 01/01/19 22:30 Narcan IV Q2M PRN Opioid Reversal Sotalol HCl 120 mg 01/03/19 21:00 Betapace PO BID [facility] Intake and Output 01/02/19 01/03/19 01/03/19 22:59 06:59 14:59 Intake Total 533.899 140 200 Output Total 800 0 400 Balance -266.101 140 -200 Intake: Intake, IV Titration 233.899 40 Amount Heparin Sod,Pork in 0.45% 213.899 NaCl 25,000 unit In 0.45 % NaCl 1 250ml.bag @ 12 UNITS/KG/HR 9.253 mls/hr IV .Q24H [facility] Rx#: [id number] Sodium Chloride 0.9% 1, 20 40 000 ml @ 20 mls/hr IV . Q24H [facility] Rx#:[id number] Oral 300 100 200 Output: Urine 800 0 400 Other: Voiding Method Urinal Urinal Urinal # Voids 1 1 Weight 80.7 kg 01/02/19 04:21 01/02/19 04:21
[2019-01-03] MEDS: MAGNESIUM SULFATE-D5W PMX 1 GM in DEXTROSE/WATER 1 100ML.BAG IVPB SCH ×2 (12:52→13:50)
[2019-01-03 13:20] VITALS: BP 124/75; PULSE 49; RESP 10
--- NOTE | 2019-01-03 13:44 | P.DS ---
Providers Date of admission: 01/01/19 22:31 Expected date of discharge: 01/03/19 Attending physician: Flaquita Carter Consults: 01/01/19 22:31 Consult Physician Routine Consulting Provider: Yobany Robins Consult Reason/Comments: v tach Do you want consulting provider notified?: Yes [facility]: This is a 28-year-old male patient of Dr. Wall with past medical history of arrhythmogenic cardiomyopathy status post ICD placement in 2016 under the care of Dr. Robins. Patient is on sotalol and Lopressor. He states he has followed up with Dr. Aceves since his last hospitalization. He states that he started having palpitations which then seemed to resolve and then he started feeling nauseated followed by chest pain. Patient denies ever having any chest pain when he has been in ventricular tachycardia in the past. Chest pain was nonradiating to the substernal area and sharp in nature. He denies any diaphoresis, no nausea. His heart rate was up to 166 and he knows his threshold is at 175. He states his heart rate was fluctuating between 130 and 160s. He usually uses valsalva maneuver with resolution of tachycardia. Patient states that he was playing with his children inside the house at the time of onset of symptoms. He is scheduled for an ablation on February [address] Robins. He last saw Dr. Robins 3-4 weeks ago and there were no changes in medications at that time. Patient came into [facility] emergency center for evaluation. EKG sinus rhythm rate of 59. CBC was unremarkable as well as basic metabolic panel. Troponin 1.430 and repeat 2.820. Urine drug screen was negative. Pacemaker interrogation was performed while in the emergency center. Patient had multiple episodes of ventricular tachycardia. One episode around 10 AM that lasted for 2 hours. He is also had increased frequency and duration of ventricular tachycardic episodes patient was started on aspirin and heparin drip.patient has been admitted to the cardiac stepdown unit and is in ICU as an overflow. Patient denies having any chest pain at the time of evaluation. 01/03 patient has been seen by Dr. Parr and elevated troponins related to episodes of V. tach. Dr. Robins to be consult for recurrent ventricular tachycardia. No plan for her catheterization at this time. Echocardiogram re veals EF 55-60% with borderline concentric left ventricular hypertrophy, mild mitral regurgitation, mild tricuspid regurgitation, no pulmonary hypertension. Patient has been afebrile, heart rate 66 with low heart rate during the night of 49, blood pressure 119/55, pulse ox 90% on room air. Further troponins 3.690 and 3.150. environmental monitoring technician is atrial pacing. Patient has been seen by Dr. Robins, repeat EKG does show QT interval between 520 and 560 [place] and has recommended reducing sotalol back to us 120 mg twice daily, magnesium 400 mg daily as an outpatient and he added in mexiletine 150 mg twice daily. EP study and ablation has been rescheduled for January 19. Patient is been cleared for discharge by cardiology. Patient will be discharged home today in stable condition. Discharge diagnoses: 1. Chest pain with elevated troponins secondary to runs of ventricular tachycardia. 2. Ventricular tachycardia, more frequent and longer episodes found on interrogation. 3. Arrhythmogenic cardiomyopathy status post ICD placement. Discharge plan: Return home. Impression and plan of care have been directed as dictated by the signing physician. Yulissa Das nurse practitioner acting as scribe for signing physician. Patient Condition at Discharge: Good Plan - Discharge Summary Discharge Rx Participant: Yes New Discharge Prescriptions: New Magnesium Oxide [Mag-Ox] 400 mg PO DAILY #60 tablet Sotalol [Betapace] 120 mg PO BID #1 tablet Mexiletine [Mexitil] 150 mg PO Q12HR #180 capsule Continue Metoprolol Tartrate [Lopressor] 25 mg PO BID #60 tablet Discontinued Sotalol [Betapace] 120 mg PO BID Discharge Medication List Metoprolol Tartrate [Lopressor] 25 mg PO BID #60 tablet 11/25/18 [Rx] Magnesium Oxide [Mag-Ox] 400 mg PO DAILY #60 tablet 01/03/19 [Rx] Mexiletine [Mexitil] 150 mg PO Q12HR #180 capsule 01/03/19 [Rx] Sotalol [Betapace] 120 mg PO BID #1 tablet 01/03/19 [Rx] Follow up Appointment(s)/Referral(s): Yobany Robins MD [STAFF PHYSICIAN] - 2 Weeks Tuan Wall MD [Primary Care Provider] - 1 Week Activity/Diet/Wound Care/Special Instructions: Mexiletine prescription provided to the patient by Dr. Robins Continue sotalol 120 mg twice daily Start mexiletine 151 g twice daily Slow-Mag for 2 weeks only New date: EP study and ablation on 19 of January, 2018 Hold sotalol and mexiletine on January 18 as well as in the morning of 19 January Discharge Disposition: HOME SELF-CARE
[2019-01-03] MEDS ORDERED: SOTALOL 80 MG TAB PO SCH (21:00)
== END 2019-01-03 15:16 | disposition home or self-care (01) | DRG 309 ==
LOC: EC 19:49 → 2SICU 22:31
PROVIDERS: ADMIT Family Medicine; ATTEND Family Medicine
DX: I47.2 Ventricular tachycardia (principal); I24.8 Other forms of acute ischemic heart disease; I42.8 Other cardiomyopathies; E11.9 Type 2 diabetes mellitus without complications; I45.81 Long QT syndrome; I08.1 Rheumatic disorders of both mitral and tricuspid valves; Z79.899 Other long term (current) drug therapy; Z86.79 Personal history of other diseases of the circulatory system; Z87.820 Personal history of traumatic brain injury; Z95.0 Presence of cardiac pacemaker; Z95.810 Presence of automatic (implantable) cardiac defibrillator
CPT/HCPCS: 36415; 71046; 80048; 80053; 80306; 83735; 84443; 84484; 85025; 85610; 85730; 93005; 93306; 96365; 96376; 99285

== ENCOUNTER 2019-01-17 08:53 | Inpatient (IN) | payer OTHER ==
[2019-01-17] MEDS ORDERED: SOTALOL 120 MG TAB PO STA (09:44)
[2019-01-17] MEDS ORDERED: MEXILETINE 150 MG CAP PO STA (09:45)
--- NOTE | 2019-01-17 09:58 | ED ---
General Adult HPI - General Chief complaint: Arrhythmia/Palpitations Stated complaint: chest pain Time Seen by Provider: 01/17/19 08:55 Source: patient, RN notes reviewed Mode of arrival: wheelchair Limitations: no limitations - History of Present Illness Initial comments: This is a 28-year-old male who presents emergency Department with a past medical history significant for V. tach. Patient's post get V. tach ablation. Patient has a pacemaker defibrillator placed. Patient comes in today because he has been having more palpitations over the last few days. Patient states he had on and went away headache again on Wednesday went away and then he states it returned on Wednesday and has been there ever signs. Patient also stopped some of his medications because he supposed to have an ablation. Patient denies any chest pain right now is mildly short of breath but he does feel his heart is still racing. Patient denies any recent fever chills. Patient denies any nausea vomiting. - Related Data Previous Rx's Medication Instructions Recorded Metoprolol Tartrate [Lopressor] 25 mg PO BID #60 tablet 11/25/18 Magnesium Oxide [Mag-Ox] 400 mg PO DAILY #60 tablet 01/03/19 Mexiletine [Mexitil] 150 mg PO Q12HR #180 capsule 01/03/19 Sotalol [Betapace] 120 mg PO BID #1 tablet 01/03/19 Allergies Allergy/AdvReac Type Severity Reaction Status Date / Time No Known Allergies Allergy Verified 01/17/19 09:20 Review of Systems ROS Statement: Those systems with pertinent positive or pertinent negative responses have been documented in the HPI. ROS Other: All systems not noted in ROS Statement are negative. Past Medical History Past Medical History: Atrial Fibrillation Additional Past Medical History / Comment(s): Cardiac History, arrthymogenic displasia History of Any Multi-Drug Resistant Organisms: None Reported Past Surgical History: AICD, EPS, Heart Catheterization Additional Past Surgical History / Comment(s): CARDIOVERSION Past Anesthesia/Blood Transfusion Reactions: No Reported Reaction Type of Cardiac Device: Permanent Pacemaker Device Placement Date:: 07/2015 Past Psychological History: No Psychological Hx Reported Smoking Status: Never smoker Past Alcohol Use History: None Reported Past Drug Use History: None Reported - Past Family History Mother Family Medical History: No Reported History Additional Family Medical History / Comment(s): Mother is alive at age 43 with no major medical problem. Father Family Medical History: No Reported History Additional Family Medical History / Comment(s): The patient has no contact with his father does not know his medical history. Sister(s) Family Medical History: No Reported History Additional Family Medical History / Comment(s): Patient has one half sister with no major medical problems. Patient has 3 children with no major medical problems. General Exam - General Exam Comments Initial Comments: GENERAL: Patient is well-developed and well-nourished. Patient is nontoxic and well- hydrated and is in mild distress. ENT: Neck is soft and supple. No significant lymphadenopathy is noted. Oropharynx is clear. Moist mucous membranes. Neck has full range of motion without eliciting any pain. EYES: The sclera were anicteric and conjunctiva were pink and moist. Extraocular movements were intact and pupils were equal round and reactive to light. Eyelids were unremarkable. PULMONARY: Unlabored respirations. Good breath sounds bilaterally. No audible rales rhonchi or wheezing was noted. CARDIOVASCULAR: Patient is tachycardic at 160 beats a minute ABDOMEN: Soft and nontender with normal bowel sounds. No palpable organomegaly was noted. There is no palpable pulsatile mass. SKIN: Skin is clear with no lesions or rashes and otherwise unremarkable. NEUROLOGIC: Patient is alert and oriented x3. Cranial nerves II through XII are grossly intact. Motor and sensory are also intact. Normal speech, volume and content. Symmetrical smile. MUSCULOSKELETAL: Normal extremities with adequate strength and full range of motion. No lower extremity swelling or edema. No calf tenderness. LYMPHATICS: No significant lymphadenopathy is noted PSYCHIATRIC: Normal psychiatric evaluation. Limitations: no limitations Course Vital Signs 01/17/19 01/17/19 01/17/19 08:56 09:10 11:29 Temperature 97.4 F L Pulse Rate 160 H 158 H Pulse Rate [ 165 H Note Specialist ] Respiratory 18 18 Rate Blood Pressure 86/61 O2 Sat by Pulse 100 100 Oximetry 01/17/19 01/17/19 12:18 13:00 Temperature Pulse Rate 66 65 Pulse Rate [ Note Specialist ] Respiratory 18 18 Rate Blood Pressure 120/88 107/75 O2 Sat by Pulse 100 100 Oximetry Medical Decision Making - Medical Decision Making EKG shows a V. tach at 165 beats a minute NM interval is 148 QRSs 124 QT interval is 264 QTC is 437. [address] spoke with [address] Robins in the [facility] via a nurse and he wanted the patient to take his daytime medicine of sotalol and mexiletine Patient was given his normal daytime meds that he did not take. Patient was then given [address] Robins came down and saw the patient eventually cardioverted the patient emergency department. I spoke with Dr. Goldsmith he agreed to admit the patient admitted the patient I wrote admitting orders - Lab Data Result diagrams: 01/17/19 11:21 01/17/19 11:21 Lab Results 01/17/19 01/17/19 01/17/19 Range/Units 11:21 11:21 11:21 WBC 15.3 H (3.8-10.6) k/uL RBC 5.67 (4.30-5.90) m/uL Hgb 16.3 (13.0-17.5) gm/dL Hct 48.6 (39.0-53.0) % MCV 85.7 (80.0-100.0) fL MCH 28.8 (25.0-35.0) pg MCHC 33.6 (31.0-37.0) g/dL RDW 13.1 (11.5-15.5) % Plt Count 265 (150-450) k/uL Neutrophils % 80 % Lymphocytes % 14 % Monocytes % 5 % Eosinophils % 0 % Basophils % 0 % Neutrophils # 12.2 H (1.3-7.7) k/uL Lymphocytes # 2.1 (1.0-4.8) k/uL Monocytes # 0.7 (0-1.0) k/uL Eosinophils # 0.0 (0-0.7) k/uL Basophils # 0.0 (0-0.2) k/uL PT 12.0 (9.0-12.0) sec INR 1.1 (<1.2) APTT 24.3 (22.0-30.0) sec Sodium 137 (137-145) mmol/L Potassium 5.0 (3.5-5.1) mmol/L Chloride 105 (98-107) mmol/L Carbon Dioxide 19 L (22-30) mmol/L Anion Gap 13 mmol/L BUN 26 H (9-20) mg/dL Creatinine 1.07 (0.66-1.25) mg/dL Est GFR (CKD-EPI)AfAm >90 (>60 ml/min/1.73 sqM) Est GFR (CKD-EPI)NonAf >90 (>60 ml/min/1.73 sqM) Glucose 123 H (74-99) mg/dL Calcium 9.7 (8.4-10.2) mg/dL Magnesium 2.1 (1.6-2.3) mg/dL Total Bilirubin 1.3 (0.2-1.3) mg/dL AST 112 H (17-59) U/L ALT 150 H (21-72) U/L Alkaline Phosphatase 76 (38-126) U/L Total Protein 7.2 (6.3-8.2) g/dL Albumin 4.3 (3.5-5.0) g/dL Critical Care Time Critical Care Time: Yes Total Critical Care Time: 35 Disposition Clinical Impression: Ventricular tachycardia Disposition: ADMITTED IP TO THIS HOSP Referrals: Tuan Wall MD [Primary Care Provider] - 1-2 days Time of Disposition: 13:37
[2019-01-17] MEDS ORDERED: SODIUM CHLORIDE 0.9% 1,000 ML IV STA (11:38)
[2019-01-17] MEDS ORDERED: SODIUM CHLORIDE 0.9% 500 ML 500 ML IV STA (11:38)
[2019-01-17] MEDS ORDERED: LIDOCAINE 2% SYG (PF) 100 MG/5 ML IV ONE (11:50)
--- NOTE | 2019-01-17 11:50 | XR ---
EXAMINATION TYPE: XR chest 2V DATE OF EXAM: 01/17/2019 COMPARISON: 01/01/2019 HISTORY: 28-year-old male with chest pain TECHNIQUE: AP and lateral views FINDINGS: Heart normal size. Aorta and pulmonary vasculature within normal limits. Left anterior chest wall AIC D generator with right atrial and right ventricular leads. No consolidation or pleural effusion seen. IMPRESSION: No acute cardiopulmonary process.
[2019-01-17 12:00] LABS: ALT 150 U/L (21-72); AST 112 U/L (17-59); African American GFR (CKD) >90 (>60 ml/min/1.73 sqM); Albumin 4.3 g/dL (3.5-5.0); Alkaline Phosphatase 76 U/L (38-126); Anion Gap 13 mmol/L; Blood Urea Nitrogen 26 mg/dL (9-20); Calcium 9.7 mg/dL (8.4-10.2); Carbon Dioxide 19 mmol/L (22-30); Chloride 105 mmol/L (98-107); Glucose 123 mg/dL (74-99); Magnesium 2.1 mg/dL (1.6-2.3); Sodium 137 mmol/L (137-145); Total Bilirubin 1.3 mg/dL (0.2-1.3); Total Protein 7.2 g/dL (6.3-8.2)
[2019-01-17] MEDS ORDERED: MIDAZOLAM 1 MG/ML 5 ML VIAL IV STA (12:00)
[2019-01-17 12:04] LABS: Basophils % (A) 0 %; Eosinophils % (A) 0 %; HCT 48.6 % (39.0-53.0); HGB 16.3 gm/dL (13.0-17.5); Lymphocytes # (A) 2.1 k/uL (1.0-4.8); Lymphocytes % (A) 14 %; MCH 28.8 pg (25.0-35.0); MCHC 33.6 g/dL (31.0-37.0); MCV 85.7 fL (80.0-100.0); Mean Platelet Volume 6.3; Monocytes # (A) 0.7 k/uL (0-1.0); Monocytes % (A) 5 %; Neutrophils # (A) 12.2 k/uL (1.3-7.7); Neutrophils % (A) 80 %; Platelet Count 265 k/uL (150-450); RBC 5.67 m/uL (4.30-5.90); RDW 13.1 % (11.5-15.5); WBC 15.3 k/uL (3.8-10.6)
[2019-01-17 12:08] LABS: INR 1.1 (<1.2); Partial Thromboplastin Time 24.3 sec (22.0-30.0)
--- NOTE | 2019-01-17 12:35 | P.PCN ---
Preoperative Diagnosis: Preoperative diagnosis: Ventricular tachycardia, sustained at 160 bpm, left bundle branch block like morphology, QRS fractionation, RS pattern in either inferior leads, upright in lead 1 and V6, symptomatic with dizziness and nausea, blood pressure in the 80 systolic Patient was given sotalol 120 mg and mexiletine 150 mg and IV lidocaine 50 mg He was sedated with IV Versed His dual chamber ICD was interrogated, VT cycle length about 400 ms antitachycardia pacing was performed, successful at 300 ms pacing cycle length, patient converted to sinus rhythm After conversion to sinus rhythm his blood pressure improved to 120 mmHg systolic Patient tolerated the procedure well with no acute complications Plan Continue with oral mexiletine 150 mg every 6 hours and sotalol 120 mg twice a day Proceed with EP study and V. tach ablation this
--- NOTE | 2019-01-17 13:58 | P.CRDCN ---
History of Present Illness History of present illness: This is Jessa Sargent PA-C dictating an EP consult on this patient The patient was interviewed and examined by me as well as by Dr. Robins Case discussed with Dr. 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 tach ablation on Will need workup for elevated white count, abnormal LFTs, and abdominal pain /vomiting prior to ablation HPI Patient is a 28-year-old male with a past medical history significant for arrhythogenic dysplasia and recurrent ventricular tachycardia status post ICD implantation who presented with complaints of palpitations. He is a patient of Dr. Robins's and we were asked by Dr. Teague to evaluate the patient. He has a ventricular tachycardia ablation scheduled for this with Dr. Robins. Patient started having symptoms of palpitations with associated nausea on . States his pulse was in the 110s. He laid down and they resolved the next morning. They came back on Wednesday and he has had them intermittently since. He did have associated nausea and vomiting and dizziness. He also had some mild chest discomfort on his left side. States he hasn't been able to be much because he's been nauseated and also did not take his medications this morning secondary to nausea. The palpitations progressively got worse and his pulse was in the 160s so he came into the emergency department. Upon presentation to the emergency department his EKG showed ventricular tachycardia, rate 165. His blood pressure was in the 80s systolic. Patient seen and examined lying in bed. Continues to have palpitations, left-sided chest discomfort, and dizziness. ROS: No fevers, positive for chills no cough, phlegm or expectoration, Positive for nausea, vomiting , abdominal pain no hematuria, dysuria, no musculoskeletal complaints, no strokes or seizures, no skin lesions. EXAMINATION: Temperature 97.4F, pulse 160, blood pressure 86/61, respirations 18, oxygen saturation 100% on room air Patient seen and examined resting in bed, no acute distress Lungs are clear to auscultation bilaterally, no wheezing, rhonchi or crackles Heart is tachycardic but regular No elevated JVD No lower extremity edema REVIEW OF LABS, ECG & MEDICAL DATA WBC 15.3, hemoglobin 16.2, platelets 265, potassium 5.0, BUN 26, creatinine 1.07 Abnormal LFTs, AST 112, ALT is 150 Chest x-ray shows no acute process Past Medical History Past Medical History: Atrial Fibrillation Additional Past Medical History / Comment(s): Cardiac History, arrthymogenic displasia History of Any Multi-Drug Resistant Organisms: None Reported Past Surgical History: AICD, EPS, Heart Catheterization Additional Past Surgical History / Comment(s): CARDIOVERSION Past Anesthesia/Blood Transfusion Reactions: No Reported Reaction Type of Cardiac Device: Permanent Pacemaker Device Placement Date:: 07/2015 Past Psychological History: No Psychological Hx Reported Smoking Status: Never smoker Past Alcohol Use History: None Reported Past Drug Use History: None Reported - Past Family History Mother Family Medical History: No Reported History Additional Family Medical History / Comment(s): Mother is alive at age 43 with no major medical problem. Father Family Medical History: No Reported History Additional Family Medical History / Comment(s): The patient has no contact with his father does not know his medical history. Sister(s) Family Medical History: No Reported History Additional Family Medical History / Comment(s): Patient has one half sister with no major medical problems. Patient has 3 children with no major medical problems. Medications and Allergies Home Medications Medication Instructions Recorded Confirmed Type Metoprolol Tartrate [Lopressor] 25 mg PO BID #60 tablet 11/25/18 01/17/19 Rx Magnesium Oxide [Mag-Ox] 400 mg PO DAILY #60 tablet 01/03/19 01/17/19 Rx Mexiletine [Mexitil] 150 mg PO Q12HR #180 capsule 01/03/19 01/17/19 Rx Sotalol [Betapace] 120 mg PO BID #1 tablet 01/03/19 01/17/19 Rx Allergies Allergy/AdvReac Type Severity Reaction Status Date / Time No Known Allergies Allergy Verified 01/17/19 09:20 Physical Exam Vitals: Vital Signs Temp Pulse Pulse Resp BP Pulse Ox 01/17/19 12:18 66 18 120/88 100 01/17/19 11:29 158 H 18 86/61 100 01/17/19 09:10 165 H 01/17/19 08:56 97.4 F L 160 H 18 100 Intake and Output 01/16/19 01/17/19 01/17/19 22:59 06:59 14:59 Other: Weight 78.471 kg Results 01/17/19 11:21 01/17/19 11:21 Cardiac Enzymes 01/17/19 Range/Units 11:21 AST 112 H (17-59) U/L Coagulation 01/17/19 Range/Units 11:21 PT 12.0 (9.0-12.0) sec APTT 24.3 (22.0-30.0) sec CBC 01/17/19 Range/Units 11:21 WBC 15.3 H (3.8-10.6) k/uL RBC 5.67 (4.30-5.90) m/uL Hgb 16.3 (13.0-17.5) gm/dL Hct 48.6 (39.0-53.0) % Plt Count 265 (150-450) k/uL Comprehensive Metabolic Panel 01/17/19 Range/Units 11:21 Sodium 137 (137-145) mmol/L Potassium 5.0 (3.5-5.1) mmol/L Chloride 105 (98-107) mmol/L Carbon Dioxide 19 L (22-30) mmol/L BUN 26 H (9-20) mg/dL Creatinine 1.07 (0.66-1.25) mg/dL Glucose 123 H (74-99) mg/dL Calcium 9.7 (8.4-10.2) mg/dL AST 112 H (17-59) U/L ALT 150 H (21-72) U/L Alkaline Phosphatase 76 (38-126) U/L Total Protein 7.2 (6.3-8.2) g/dL Albumin 4.3 (3.5-5.0) g/dL Current Medications Generic Name Dose Route Start Last Admin Trade Name Freq PRN Reason Stop Dose Admin Sodium Chloride 1,000 mls @ 999 mls/hr 01/17/19 11:38 01/17/19 11:39 Saline 0.9% IV 01/17/19 12:38 999 mls/hr .Q1H1M STA Administration Intake and Output 01/16/19 01/17/19 01/17/19 22:59 06:59 14:59 Other: Weight 78.471 kg Patient Weight 01/18/19 06:59 Weight 78.471 kg 01/17/19 11:21 01/17/19 11:21
[2019-01-17] MEDS ORDERED: MEXILETINE 150 MG CAP PO SCH (15:00)
--- NOTE | 2019-01-17 15:12 | US ---
EXAMINATION TYPE: US abdomen complete DATE OF EXAM: 01/17/2019 COMPARISON: NONE CLINICAL HISTORY: Nausea vomiting abdominal pain abnormal LFTs. Patient stated has left lateral abdom en pain. EXAM MEASUREMENTS: Liver Length: 15.8 cm Gallbladder Wall: 0.2 cm CBD: 0.2 cm Spleen: 9.9 x 10.8 x 3.7 cm Right Kidney: 11.0 x 5.1 x 3.7 cm Left Kidney: 10.5 x6.0 x 5.6 cm Pancreas: wnl Liver: wnl, small amount of ascites is seen inferior to diaphragm on transverse right liver Gallbladder: wnl Evidence for sonographic Franklin's sign: no CBD: wnl Spleen: wnl Right Kidney: wnl Left Kidney: wnl Upper IVC: wnl Abd Aorta: wnl; inferior is gassed out Trace right pleural effusion is seen. Ascites is seen medial and inferior to spleen. The liver is homogenous. The intrahepatic portion of the IVC and proximal abdominal aorta are within normal limits. There is no evidence of cholelithiasis. Common bile duct is unremarkable. The visu alized portions of the pancreas are homogenous. The spleen is unremarkable. Kidneys are symmetric a nd free of hydronephrosis. No renal lesions are seen. IMPRESSION: 1. There is a small amount of perihepatic and perisplenic ascites. CT abdomen pelvis with contrast is recommended. 2. Trace right pleural effusion. A Yellow level critical message alert has been initiated for Yobany Robins MD via the [email or web address] Critical Results System on 01/17/2019 3:09 PM. This message alert has been sent to Les Hyatt via the preferences provided by the clinician for the receipt of Radiology Critical Findings. mLED ID [id number].
[2019-01-17] MEDS: MEXILETINE 150 MG CAP PO SCH ×2 (17:22→23:05)
[2019-01-17] MEDS: SOTALOL 120 MG TAB PO SCH (17:22)
[2019-01-17] MEDS: SODIUM CHLORIDE 0.9% 1,000 ML IV SCH (17:22)
[2019-01-17 17:53] LABS: Cocaine Screen,Urine Not Detected (NotDetected); Phencyclidine Screen,Urine Not Detected (NotDetected); Urn Cannabinoid Scrn Not Detected (NotDetected)
[2019-01-17 17:54] LABS: Amphetamine Screen,Urine Not Detected (NotDetected); Barbiturate Screen,Urine Not Detected (NotDetected); Benzodiazepines Screen,Urine Not Detected (NotDetected); Methadone Screen, Urine Not Detected (NotDetected); Opiate Screen,Urine Not Detected (NotDetected); Oxycodone Screen, Urine Not Detected (NotDetected); Tricyclic Antidepressant,Urine Not Detected (NotDetected)
[2019-01-18 07:21] LABS: ALT 103 U/L (21-72); AST 76 U/L (17-59); African American GFR (CKD) >90 (>60 ml/min/1.73 sqM); Albumin 3.7 g/dL (3.5-5.0); Alkaline Phosphatase 61 U/L (38-126); Anion Gap 7 mmol/L; Blood Urea Nitrogen 17 mg/dL (9-20); Calcium 8.8 mg/dL (8.4-10.2); Carbon Dioxide 26 mmol/L (22-30); Chloride 104 mmol/L (98-107); Glucose 102 mg/dL (74-99); Potassium 4.8 mmol/L (3.5-5.1); Sodium 137 mmol/L (137-145); Total Bilirubin 0.8 mg/dL (0.2-1.3); Total Protein 6.3 g/dL (6.3-8.2)
[2019-01-18] MEDS: SOTALOL 120 MG TAB PO SCH ×2 (08:20→21:35)
[2019-01-18] MEDS: MEXILETINE 150 MG CAP PO SCH ×3 (08:20→23:05)
--- NOTE | 2019-01-18 09:02 | CT ---
EXAMINATION TYPE: CT abdomen wo con DATE OF EXAM: 01/18/2019 COMPARISON: Ultrasound abdomen 01/17/2019 HISTORY: Abdominal process, R/O. Ascites. Nausea and vomiting, abdominal pain Ventricular tachycard ia CT DLP: 321.4 mGycm Automated exposure control for dose reduction was used. TECHNIQUE: Helical acquisition of images was performed from the lung bases through the top of iliac crest to include entire abdomen. CONTRAST: Performed without Oral Contrast and without IV contrast. FINDINGS: Lack of intravenous contrast may compromise the exam. LUNG BASES: Small pleural effusion noted on the right greater than left. There is associated atelecta tic change. Intracardiac defibrillator leads noted incidentally. LIVER/GB: No significant abnormality is appreciated. PANCREAS: No significant abnormality is seen. SPLEEN: No significant abnormality is seen. ADRENALS: No significant abnormality is seen. KIDNEYS: No significant abnormality is seen. BOWEL: No significant abnormality is seen. LYMPH NODES: No significant abnormality is appreciated. OSSEOUS STRUCTURES: No significant abnormality is seen. FREE AIR: No Free Air visible ASCITES: Small amount of fluid is present along the paracolic gutter bilaterally, at the inferior ma rgins of the spleen and liver. RETROPERITONEAL ADENOPATHY: No Retroperitoneal Adenopathy visible. IMPRESSION: SMALL AMOUNT OF ASCITES IS PRESENT. SMALL PLEURAL EFFUSIONS RIGHT GREATER THAN LEFT. NONCONTRAST EXAM .
--- NOTE | 2019-01-18 12:08 | P.HPIM ---
History of Present Illness H&P Date: 01/17/19 Chief Complaint: V. tach, atherosclerotic heart disease, arrhythmogeni cardi omyopathy, 28-year-old male one of Dr. merino's patient with past medical history of recurrent V. tach post AICD, history of A. fib, history of arrhythmic cardiomyopathy who was in the hospital a few weeks ago with another episode of V. tach was recommended to go for ablation therapy at the time and refused. Patient has been seen Dr. Robins on regular basis and has been on beta jerilyn with no anticoagulation. Patient presented to demurs department at [facility] on 01/18/2019 complaining of worsening palpitation after he called Dr. Robins and instructed to go to the emergency apartment was evaluated and found to have ventricular tachycardia, cardiology had seen him in demurs department made the recommendation and contacted Dr. Robins patient be hospitalized after converting his V. tach patient pulsatile in the 70s and 80s patient be going for ablation therapy well is the hospitalist time. Review of Systems CONSTITUTIONAL: Well-developed no acute respiratory distress. EYES: No icterus sclerae, no conjunctivitis. EARS, NOSE, MOUTH, THROAT, and FACE: No sore throat, lymphadenopathy, carotid bruits or deformity. RESPIRATORY: No SOB cough or wheezes. CARDIOVASCULAR: No CP, Palpitation, PND, Orthopnea, or angina. GASTROINTESTINAL: No Abd pain, Nausea or vomiting, no Diarrhea or constipation, No GI Bleed, no distention or masses. GENITOURINARY: Negative for Hematuria or UTI, no kidney stones. INTEGUMENT/BREAST: Negative for any muscular injury with mild osteoarthritis.. HEMATOLOGIC/LYMPHATIC: Negative for bleed or purpura. MUSCULOSKELTAL: Negative for Myalgia or arthralgia. NEURLOGICAL: No LOC, Sz or syncope, blurred vision dizziness or abnormality.. BEHAVIORAL/PSYCH: Negative. ENDOCRINE: Negative. Past Medical History Past Medical History: Atrial Fibrillation, Chest Pain / Angina, Myocardial In farction ([place]) Additional Past Medical History / Comment(s): Arrthymogenic cardiomyopathy, R ventricular displasia, vtach Last Myocardial Infarction Date:: 2015 History of Any Multi-Drug Resistant Organisms: None Reported Past Surgical History: AICD, EPS, Heart Catheterization Additional Past Surgical History / Comment(s): CARDIOVERSION Past Anesthesia/Blood Transfusion Reactions: No Reported Reaction Type of Cardiac Device: AICD Device Placement Date:: 07/2015 Smoking Status: Never smoker - Past Family History Mother Family Medical History: No Reported History Additional Family Medical History / Comment(s): Mother is alive at age 43 with no major medical problem. Father History Unknown: Yes Family Medical History: No Reported History Additional Family Medical History / Comment(s): Pt does not have contact with his father. Sister(s) Family Medical History: No Reported History Additional Family Medical History / Comment(s): Patient has one half sister with no major medical problems. Patient has 3 children with no major medical problems. Medications and Allergies Home Medications Medication Instructions Recorded Confirmed Type Metoprolol Tartrate [Lopressor] 25 mg PO BID #60 tablet 11/25/18 01/17/19 Rx Magnesium Oxide [Mag-Ox] 400 mg PO DAILY #60 tablet 01/03/19 01/17/19 Rx Mexiletine [Mexitil] 150 mg PO Q12HR #180 capsule 01/03/19 01/17/19 Rx Sotalol [Betapace] 120 mg PO BID #1 tablet 01/03/19 01/17/19 Rx Allergies Allergy/AdvReac Type Severity Reaction Status Date / Time No Known Allergies Allergy Verified 01/17/19 09:20 Physical Exam Vitals: Vital Signs Temp Pulse Pulse Resp BP BP Pulse Ox 01/17/19 15:48 55 L 16 01/17/19 15:15 97.7 F 55 L 16 111/72 98 01/17/19 14:27 63 18 114/79 100 01/17/19 13:00 65 18 107/75 100 01/17/19 12:18 66 18 120/88 100 01/17/19 11:29 158 H 18 86/61 100 01/17/19 09:10 165 H 01/17/19 08:56 97.4 F L 160 H 18 100 Intake and Output 01/17/19 01/17/19 01/17/19 06:59 14:59 22:59 Intake Total 490 Balance 490 Intake: Oral 490 Other: Weight 78.471 kg General Appearance: Alert, cooperative, no distress, appears stated age. Neck HEENT: Supple, no lymphadenopathy, no thyroid enlargement, no carotid bruits. Lungs: Clear to auscultation without crackles or wheezes no rhonchi, no deformity. Chest Wall: Chest wall normal expansion with deep inspiration no tenderness and no deformity was found on exam, no costochondral pain or discomfort. Heart: Regular rate and rhythm, S1, S2 normal, no murmur, rub or gallop. Back: Symmetric, no curvature, ROM normal, no CVA tenderness. Abdomen: Soft, non-tender, bowel sounds active all four quadrants, no masses, no organomegaly. Extremities: Extremities normal, atraumatic, no cyanosis or edema. Pulses: 2+ and symmetric. Skin: Skin color, texture, tugor normal, no rashes or lesions. Neurologic: Alert oriented x3 cranial nerves II through XII intact, no motor deficit, no abnormal balance or gait. Results CBC & Chem 7: 01/17/19 11:21 01/18/19 06:27 Labs: Abnormal Lab Results - Last 24 Hours (Table) 01/17/19 01/17/19 Range/Units 11:21 11:21 WBC 15.3 H (3.8-10.6) k/uL Neutrophils # 12.2 H (1.3-7.7) k/uL Carbon Dioxide 19 L (22-30) mmol/L BUN 26 H (9-20) mg/dL Glucose 123 H (74-99) mg/dL AST 112 H (17-59) U/L ALT 150 H (21-72) U/L Thrombosis Risk Factor Assmnt - DVT/VTE Prophylaxis DVT/VTE Prophylaxis: Pharmacologic Prophylaxis ordered, Mechanical Prophylaxis ordered - Choose All That Apply Any of the Below Risk Factors Present?: No Other Risk Factors: No Other congenital or acquired thrombophilia - If yes, enter type in comment: No Thrombosis Risk Factor Assessment Level: Very Low Risk Assessment and Plan Plan: 1 ventricular tachycardia: Patient hasn't AICD, patient be going for EP and ablation therapy in the meanwhile if recurrent episode will continue IV amiodarone or antiarrhythmic medication per cardiology recommendation. 2 history of atrial fibrillation: Still on metoprolol and sotalol continue medication. 3 arrhythmia cardiomyopathy: Patient is on medical management currently. 4 post AICD: Still functioning well. 5 GI prophylaxis: Patient is on Pepcid 20 mg daily. 6 DVT prophylaxis: Patient will be on heparin 5000 units subcutaneous twice a day. CODE STATUS: Full code. Admit patient to inpatient status for more than 2 nights.
--- NOTE | 2019-01-18 12:16 | P.PN ---
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 He is a patient of Dr. Robins'paxton and was seen in consultation by him yesterday. He has a jacky tricular tachycardia ablation scheduled for this with Dr. Robins. Patient started having symptoms of palpitations with associated nausea on . States his pulse was in the 110s. He laid down and they resolved the next morning. They came back on Wednesday and he has had them intermittently since. He did have associated nausea and vomiting and dizziness. He also had some mild chest discomfort on his left side. States he hasn't been able to be much because he's been nauseated and also did not take his medications this morning secondary to nausea. The palpitations progressively got worse and his pulse was in the 160s so he came into the emergency department. Upon presentati on to the emergency department his EKG showed ventricular tachycardia, rate 165. His blood pressure was in the 80s systolic. Patient seen and examined lying in bed. Continues to have palpitations, left-sided chest discomfort, and dizziness. Patient continues to be on sotalol along with mexiletine. Scheduled for a V. tach ablation on . We will repeat an echocardiogram with Doppler study today. We will also request a CT of the abdomen because of abdominal pain . Overall this morning the patient feels well, no complaints. Blood pressure 116/60 with a heart rate in 50s, 100% on 2 L of oxygen. Sodium 137, potassium 4.8, BUN 17 and creatinine 1.0. Objective - Vital Signs Vital signs: Vital Signs Temp 97.6 F 01/18/19 08:00 Pulse 58 L 01/18/19 08:00 Resp 16 01/18/19 08:00 BP 116/63 01/18/19 08:00 Pulse Ox 100 01/18/19 08:00 Intake & Output 01/17/19 01/18/19 01/18/19 18:59 06:59 18:59 Intake Total 490 250 860 Output Total 1200 Balance 490 -950 860 Weight 78.471 kg 80.2 kg Intake: IV 10 0 0.9 10 0 Oral 490 240 860 Output: Urine 1200 Other: Voiding Method Urinal Urinal # Voids 1 0 # Bowel Movements 0 - Exam Patient seen and examined resting in bed, no acute distress Lungs are clear to auscultation bilaterally, no wheezing, rhonchi or crackles Heart S1-S2 no murmur or gallop No elevated JVD No lower extremity edema - Labs CBC & Chem 7: 01/17/19 11:21 01/18/19 06:27 Labs: Abnormal Lab Results - Last 24 Hours (Table) 01/18/19 Range/Units 06:27 Glucose 102 H (74-99) mg/dL AST 76 H (17-59) U/L ALT 103 H (21-72) U/L Assessment and Plan Plan: Assessment and plan #1Recurrent sustained ventricular tachycardia #2Arrhythmogenic dysplasia status post ICD placement #3Abnormal LFTs Plan We will request a CT of the abdomen be performed today as well as an echocardiogram with Doppler study. Patient is scheduled for a V. tach ablation on . DNP note has been reviewed, I agree with a documented findings and plan of care. Patient was seen and examined.
--- NOTE | 2019-01-18 12:38 | P.PN ---
Subjective Progress Note Date: 01/18/19 28-year-old male one of Dr. Villegas's patient with past medical history of recurrent V. tach post AICD, history of A. fib, history of arrhythmic cardiomyopathy who was in the hospital a few weeks ago with another episode of V. tach was recommended to go for ablation therapy at the time and refused. Patient has been seen Dr. Robins on regular basis and has been on beta jerilyn with no anticoagulation. [facility] on 01/18/2019 complaining of worsening palpitation after he called Dr. Robins and instructed to go to the emergency apartment was evaluated and found to have ventricular tachycardia, cardiology had [facility] made the recommendation and contacted Dr. Robins patient be hospitalized after converting his V. tach patient pulsatile in the 70s and 80s patient be going for ablation therapy well is the hospitalist time. 01/18: Patient is scheduled for a V. tach ablation on with Dr. Robins echocardiogram has been ordered. He is continued on Mexitil 150 mg every 8 hours and sotalol 120 mg twice daily. Abdominal ultrasound revealed small amount of perihepatic and a splenic ascites. CAT scan was recommended. Trace right pleural effusion. CAT scan of the abdomen has been ordered by cardiology due to abdominal pain. CAT scan reveals small amount of ascites present. Small pleural effusions right greater than left. Patient has been afebrile, heart rate 58, blood pressure 160/63, pulse ox 100% on 2 L nasal cannula. Review of Systems CONSTITUTIONAL: Well-developed no acute respiratory distress. Patient ambulatory in his room. EYES: No icterus sclerae, no conjunctivitis. EARS, NOSE, MOUTH, THROAT, and FACE: No sore throat, lymphadenopathy, carotid bruits or deformity. RESPIRATORY: No SOB cough or wheezes. CARDIOVASCULAR: No CP, Palpitation, PND, Orthopnea, or angina. GASTROINTESTINAL: No Abd pain, Nausea or vomiting, no Diarrhea or constipation, No GI Bleed, no distention or masses. GENITOURINARY: Negative for Hematuria or UTI, no kidney stones. INTEGUMENT/BREAST: Negative for any muscular injury with mild osteoarthritis.. HEMATOLOGIC/LYMPHATIC: Negative for bleed or purpura. MUSCULOSKELTAL: Negative for Myalgia or arthralgia. NEURLOGICAL: No LOC, Sz or syncope, blurred vision dizziness or abnormality.. BEHAVIORAL/PSYCH: Negative. ENDOCRINE: Negative. Objective - Vital Signs Vital signs: Vital Signs Temp 97.6 F 01/18/19 08:00 Pulse 58 L 01/18/19 08:00 Resp 16 01/18/19 08:00 BP 116/63 01/18/19 08:00 Pulse Ox 100 01/18/19 08:00 Intake & Output 01/17/19 01/18/19 01/18/19 18:59 06:59 18:59 Intake Total 490 250 860 Output Total 1200 Balance 490 -950 860 Weight 78.471 kg 80.2 kg Intake: IV 10 0 0.9 10 0 Oral 490 240 860 Output: Urine 1200 Other: Voiding Method Urinal Urinal # Voids 1 0 # Bowel Movements 0 - Exam General Appearance: Alert, cooperative, no distress. Neck HEENT: Supple, no lymphadenopathy, no thyroid enlargement, no carotid bruits. Lungs: Clear to auscultation without crackles or wheezes no rhonchi, no deformity. Chest Wall: Chest wall normal expansion with deep inspiration no tenderness and no deformity was found on exam, no costochondral pain or discomfort. Heart: Regular rate and rhythm, S1, S2 normal, no murmur, rub or gallop. Back: Symmetric, no curvature, ROM normal, no CVA tenderness. Abdomen: Soft, non-tender, bowel sounds active all four quadrants, no masses, no organomegaly. Extremities: Extremities normal, atraumatic, no cyanosis or edema. Pulses: 2+ and symmetric. Skin: Skin color, texture, tugor normal, no rashes or lesions. Neurologic: Alert oriented x3 cranial nerves II through XII intact, no motor deficit, no abnormal balance or gait. - Labs CBC & Chem 7: 01/17/19 11:21 01/18/19 06:27 Labs: Abnormal Lab Results - Last 24 Hours (Table) 01/18/19 Range/Units 06:27 Glucose 102 H (74-99) mg/dL AST 76 H (17-59) U/L ALT 103 H (21-72) U/L Assessment and Plan Plan: 1 ventricular tachycardia: Patient has AICD, patient be going for EP and ablation on with Dr. Robins. Continue Mexitil 150 mg every 8 hours and sotalol 120 mg twice daily. 2 history of ventricular tachycardia with more frequent episodes: Continue Mexitil, sotalol. Lopressor on hold. 3 arrhythmia cardiomyopathy status post AICD: Patient is on medical management currently. 4 post AICD: Still functioning well. 5 GI prophylaxis: Patient is on Pepcid 20 mg daily. 6 DVT prophylaxis: Patient will be on heparin 5000 units subcutaneous twice a day. CODE STATUS: Full code. Discharge plan: Home most likely on Wednesday Impression and plan of care have been directed as dictated by the signing physician. Yulissa Das nurse practitioner acting as scribe for signing ph ysician.
--- NOTE | 2019-01-18 13:00 | ECHOF ---
Referral Reason:[facility] MEASUREMENTS -------- HEIGHT: 182.9 cm WEIGHT: 79.8 kg BP: RVIDd: 3.6 cm (< 3.3) IVSd: 1.3 cm (0.6 - 1.1) LVIDd: 5.1 cm (3.9 - 5.3) LVPWd: 1.3 cm (0.6 - 1.1) IVSs: 1.5 cm LVIDs: 3.6 cm LVPWs: 1.6 cm LA Diam: 3.1 cm (2.7 - 3.8) LAESV Index (A-L): 27.43 ml/m Ao Diam: 2.9 cm (2.0 - 3.7) AV Cusp: 1.9 cm (1.5 - 2.6) LA Diam: 3.4 cm (2.7 - 3.8) MV EXCURSION: 20.174 mm (> 18.000) MV EF SLOPE: 104 mm/s (70 - 150) EPSS: 0.8 cm MV E Tony: 0.81 m/s MV DecT: 191 ms MV A Tony: 0.32 m/s MV E/A Ratio: 2.57 RAP: 5.00 mmHg RVSP: 23.28 mmHg TAPSE: 18.81 mm FINDINGS -------- Paced rhythm. This was a technically good study. The left ventricular size is normal. There is mild concentric left ventricular hypertrophy. Overa ll left ventricular systolic function is mild-moderately impaired with, an EF between 40 - 45 %. Le ft ventricular fillimg pressure cannot be estimated due to paced rhythm. Inferiorlateral Hypokinesi s The right ventricle is moderate to severely enlarged. The left atrium is mildly dilated. Normal LA size by volume 22+/-6 ml/m2. The right atrial size is normal. The aortic valve is trileaflet, and appears structurally normal. No aortic stenosis or regurgitation. Mild mitral regurgitation is present. Mild tricuspid regurgitation present. Right ventricular systolic pressure is normal at < 35 mmHg. There is no evidence of pulmonary hypertension. There is no pulmonic regurgitation present. The aortic root size is normal. There is no pericardial effusion. CONCLUSIONS -------- 1. Paced rhythm. 2. This was a technically good study. 3. The left ventricular size is normal. 4. There is mild concentric left ventricular hypertrophy. 5. Overall left ventricular systolic function is mild-moderately impaired with, an EF between 40 - 45 %. 6. Left ventricular fillimg pressure cannot be estimated due to paced rhythm. 7. Inferiorlateral Hypokinesis 8. The right ventricle is moderate to severely enlarged. 9. The left atrium is mildly dilated. 10. Normal LA size by volume 22+/-6 ml/m2. 11. The right atrial size is normal. 12. The aortic valve is trileaflet, and appears structurally normal. No aortic stenosis or regurgitat ion. 13. Mild mitral regurgitation is present. 14. Mild tricuspid regurgitation present. 15. Right ventricular systolic pressure is normal at < 35 mmHg. 16. There is no evidence of pulmonary hypertension. 17. There is no pulmonic regurgitation present. 18. The aortic root size is normal. 19. There is no pericardial effusion. [employer] SUPERVISOR: Misty Blank RDCS
[2019-01-18] MEDS: SODIUM CHLORIDE 0.9% 1,000 ML IV SCH (15:23)
[2019-01-18] MEDS ORDERED: LACTATED RINGERS 1,000 ML IV SCH (21:30)
[2019-01-19] MEDS ORDERED: PROPOFOL 10 MG/ML 20 ML VIAL IV ONE (07:18)
[2019-01-19] MEDS ORDERED: MEPERIDINE 50 MG/ML SYRINGE ONE (07:18)
[2019-01-19] MEDS ORDERED: LACTATED RINGERS 1,000 ML IV ONE ×2 (07:18→11:13)
[2019-01-19] MEDS ORDERED: MIDAZOLAM 2 MG/2 ML VIAL ONE (07:18)
[2019-01-19] MEDS ORDERED: FUROSEMIDE 10 MG/ML 2 ML VIAL ONE (07:18)
[2019-01-19] MEDS ORDERED: PHENYLEPHRINE-0.9% NACL SYG 1 MG/10 ML SYRINGE ONE (07:18)
[2019-01-19] MEDS ORDERED: fentaNYL (PF) 50 MCG/ML 2 ML AMP ONE (07:18)
[2019-01-19] MEDS ORDERED: SODIUM CHLORIDE 0.9% 1,000 ML IV ONE (07:18)
[2019-01-19] MEDS ORDERED: ISOPROTERENOL 250 MCG/1.25 ML SYR IV ONE (07:18)
[2019-01-19] MEDS ORDERED: LIDOCAINE 1% INJ 10MG/ML (20 ML MDV) SQ ONE ×2 (08:12→13:33)
--- NOTE | 2019-01-19 08:33 | P.CONS ---
History of Present Illness - Reason for Consult Consult date: 01/18/19 Elevated liver enzymes Requesting physician: Jeronimo Goldsmith - Chief Complaint Irregular heart beat - History of Present Illness 28-year-old male with a history of ventricular tachycardia status post AICD placement, history of atrial fibrillation and arrhythmic cardiomyopathy presented to the hospital complaining of worsening irregular heartbeat. Currently the patient is seen by the cardiology service with the plan for ablation. The patient was found to have elevated liver enzymes and predominantly hepatocellular pattern with elevation of the AST and ALTs. No prior history of elevated liver enzymes, no history of IV drug use, blood transfusions or high risk behavior. No history of viral hepatitis. Liver enzymes have trended down today from yesterday with a AST of 76, ALP 103, total bilirubin 0.8 and alkaline phosphatase 61. Patient denies any abdominal pain. No jaundice or darkening of his urine. Review of Systems REVIEW OF SYSTEMS: CONSTITUTIONAL: Denies any fevers, chills, weight change or fatigue. CARDIOVASCULAR: Denies any chest pain, but does have a history of irregular heartbeat and ventricular tachycardia with a prior AICD placement, and presented with sensation of irregular heartbeat. RESPIRATORY: Denies any shortness of breath, hemoptysis or cough. GENITOURINARY: No dysuria or hematuria. MUSCULOSKELETAL: No weakness reported. SKIN: Denies any new rashes or lesions, jaundice or pallor. PSYCHIATRIC: Denies any depression or anxiety. NEUROLOGY: Denies headache, denies any new focal deficits. EARS/NOSE/THROAT: No recent hearing change, congestion, nasal discharge or sore throat. EYES: No pain in eyes, discharge or change in vision. GASTROINTESTINAL: As per HPI. Past Medical History Past Medical History: Atrial Fibrillation, Chest Pain / Angina, Myocardial Infarction ([place]) Additional Past Medical History / Comment(s): Arrthymogenic cardiomyopathy, R ventricular displasia, vtach Last Myocardial Infarction Date:: 2015 History of Any Multi-Drug Resistant Organisms: None Reported Past Surgical History: AICD, EPS, Heart Catheterization Additional Past Surgical History / Comment(s): CARDIOVERSION Past Anesthesia/Blood Transfusion Reactions: No Reported Reaction Type of Cardiac Device: AICD Device Placement Date:: 07/2015 Smoking Status: Never smoker - Past Family History Mother Family Medical History: No Reported History Additional Family Medical History / Comment(s): Mother is alive at age 43 with no major medical problem. Father History Unknown: Yes Family Medical History: No Reported History Additional Family Medical History / Comment(s): Pt does not have contact with his father. Sister(s) Family Medical History: No Reported History Additional Family Medical History / Comment(s): Patient has one half sister with no major medical problems. Patient has 3 children with no major medical problems. Medications and Allergies Home Medications Medication Instructions Recorded Confirmed Type Metoprolol Tartrate [Lopressor] 25 mg PO BID #60 tablet 11/25/18 01/17/19 Rx Magnesium Oxide [Mag-Ox] 400 mg PO DAILY #60 tablet 01/03/19 01/17/19 Rx Mexiletine [Mexitil] 150 mg PO Q12HR #180 capsule 01/03/19 01/17/19 Rx Sotalol [Betapace] 120 mg PO BID #1 tablet 01/03/19 01/17/19 Rx Allergies Allergy/AdvReac Type Severity Reaction Status Date / Time No Known Allergies Allergy Verified 01/17/19 09:20 Physical Exam Vitals: Vital Signs Temp Pulse Resp BP Pulse Ox 01/18/19 15:00 98.0 F 53 L 14 108/61 99 01/18/19 12:00 97.7 F 54 L 16 110/60 100 01/18/19 08:00 97.6 F 58 L 16 116/63 100 01/18/19 04:00 98.8 F 54 L 17 104/59 99 01/18/19 00:00 97.9 F 62 18 102/60 100 Intake and Output 01/18/19 01/18/19 01/18/19 06:59 14:59 22:59 Intake Total 1100 850 Balance 1100 850 Intake: IV 40 10 0.9 0 Invasive Line 1 10 Invasive Line 2 10 Invasive Line 3 20 10 Oral 1060 840 Other: Voiding Method Urinal Urinal Urinal # Voids 1 0 # Bowel Movements 0 Weight 80.2 kg On physical examination, patient appears comfortable in no apparent distress. HEAD: Normocephalic, atraumatic. EYES: No scleral icterus. No conjunctival injection. MOUTH: No lesions, tongue midline. NECK: Trachea midline, no gross abnormalities. CHEST: Clear to auscultation with no wheezing or rhonchi appreciated. HEART: S1-S2 appreciated ABDOMEN: Soft, obese. Bowel sounds are positive. No organomegaly. No guarding o r rigidity. EXTREMITIES: No pedal edema. SKIN: No rashes, no jaundice. NEUROLOGIC: Alert and oriented x3. No focal deficits. Results CBC & Chem 7: 01/17/19 11:21 01/18/19 06:27 Labs: Abnormal Lab Results - Last 24 Hours (Table) 01/18/19 Range/Units 06:27 Glucose 102 H (74-99) mg/dL AST 76 H (17-59) U/L ALT 103 H (21-72) U/L CT scan - abdomen: report reviewed (Small amount of ascites noted on CT abdomen) Assessment and Plan (1) Elevated liver enzymes Narrative/Plan: 28-year-old male with a medical history of regular tachycardia and AICD placement here for irregular heartbeat with plan for a cardiac ablation who was found to have an incidental elevation in his liver enzymes. Elevation was mild and predominantly in a hepatocellular pattern. No prior viral hepatitis, elevated liver enzymes, alcohol use or abuse, or other high risk behavior. No family history of elevated liver enzymes. Anticipate that likely etiology of the patient's elevated liver enzymes are from a relative hypoperfusion are related to cardiac abnormalities any passive congestion, however will order full serology to rule out other etiology of the elevated liver enzymes. Current Visit: No Status: Acute Code(s): R74.8 - ABNORMAL LEVELS OF OTHER SERUM ENZYMES SNOMED Code(s): 907618159 Plan: Supportive care Okay for diet Okay to proceed with cardiac ablation Continue to monitor liver enzymes Full liver serology will be ordered Thank you for allowing us to participate in care of the patient we will continue to follow
[2019-01-19] MEDS ORDERED: HEPARIN SODIUM (1,000 UNIT/ML) 1,000 UNIT in SODIUM CHLORIDE 0.9% 1,000 ML IRRIGATION ONE ×2 (08:55→13:25)
[2019-01-19] MEDS: MEXILETINE 150 MG CAP PO SCH (10:49)
[2019-01-19] MEDS: SODIUM CHLORIDE 0.9% 1,000 ML IV SCH (10:50)
[2019-01-19] MEDS: SOTALOL 120 MG TAB PO SCH ×2 (10:50→21:21)
--- NOTE | 2019-01-19 12:47 | P.PN ---
Subjective Progress Note Date: 01/19/19 Principal diagnosis: V. tach, history of ventricular arrhythmia, A. fib, post AICD, GERD 28-year-old male one of Dr. Villegas's patient with past medical history of recurrent V. tach post AICD, history of A. fib, history of arrhythmic cardiomyopathy who was in the hospital a few weeks ago with another episode of V. tach was recommended to go for ablation therapy at the time and refused. Patient has been seen Dr. Robins on regular basis and has been on beta jerilyn with no anticoagulation. Patient presented to [facility] at [facility] on 01[facility]18[facility]2019 complaining of worsening palpitation after he called Dr. Robins and instructed to go to the emergency apartment was evaluated and found to have ventricular tachycardia, cardiology had seen him in [facility] department made the recommendation and contacted Dr. Robins patient be hospitalized after converting his V. tach patient pulsatile in the 70s and 80s patient be going for ablation therapy well is the hospitalist time. 01/18: Patient is scheduled for a V. tach ablation on with Dr. Robins echocardiogram has been ordered. He is continued on Mexitil 150 mg every 8 hours and sotalol 120 mg twice daily. Abdominal ultrasound revealed small amount of perihepatic and a splenic ascites. CAT scan was recommended. Trace right pleural effusion. CAT scan of the abdomen has been ordered by cardiology due to abdominal pain. CAT scan reveals small amount of ascites present. Small pleural effusions right greater than left. Patient has been afebrile, heart rate 58, blood pressure 160/63, pulse ox 100% on 2 L nasal cannula. 01/19: Patient is going for ablation with Dr. Robins this morning he is doing well stable no major abnormality there is a small amount of ascites was found patient apparently will be seen gastroenterology at this point. Objective - Vital Signs Vital signs: Vital Signs Temp 97.8 F 01/19/19 04:20 Pulse 52 L 01/19/19 04:20 Resp 16 01/19/19 04:20 BP 118/55 01/19/19 04:20 Pulse Ox 98 01/19/19 04:20 Intake & Output 01/18/19 01/19/19 01/19/19 18:59 06:59 18:59 Intake Total 1949 1000 Balance 1949 1000 Weight 79.3 kg Intake: IV 50 1000 0.9 0 Invasive Line 1 10 Invasive Line 2 10 Invasive Line 3 30 Oral 1900 Other: Voiding Method Urinal Urinal # Voids 0 1 # Bowel Movements 0 - Exam Review of Systems CONSTITUTIONAL: Well-developed no acute respiratory distress. Patient ambulatory in his room. EYES: No icterus sclerae, no conjunctivitis. EARS, NOSE, MOUTH, THROAT, and FACE: No sore throat, lymphadenopathy, carotid bruits or deformity. RESPIRATORY: No SOB cough or wheezes. CARDIOVASCULAR: No CP, Palpitation, PND, Orthopnea, or angina. GASTROINTESTINAL: No Abd pain, Nausea or vomiting, no Diarrhea or constipation, No GI Bleed, no distention or masses. GENITOURINARY: Negative for Hematuria or UTI, no kidney stones. INTEGUMENT/BREAST: Negative for any muscular injury with mild osteoarthritis.. HEMATOLOGIC/LYMPHATIC: Negative for bleed or purpura. MUSCULOSKELTAL: Negative for Myalgia or arthralgia. NEURLOGICAL: No LOC, Sz or syncope, blurred vision dizziness or abnormality.. BEHAVIORAL/PSYCH: Negative. ENDOCRINE: Negative. - Exam General Appearance: Alert, cooperative, no distress. Neck HEENT: Supple, no lymphadenopathy, no thyroid enlargement, no carotid bruits. Lungs: Clear to auscultation without crackles or wheezes no rhonchi, no deformity. Chest Wall: Chest wall normal expansion with deep inspiration no tenderness and no deformity was found on exam, no costochondral pain or discomfort. Heart: Regular rate and rhythm, S1, S2 normal, no murmur, rub or gallop. Back: Symmetric, no curvature, ROM normal, no CVA tenderness. Abdomen: Soft, non-tender, bowel sounds active all four quadrants, no masses, no organomegaly. Extremities: Extremities normal, atraumatic, no cyanosis or edema. Pulses: 2+ and symmetric. Skin: Skin color, texture, tugor normal, no rashes or lesions. Neurologic: Alert oriented x3 cranial nerves II through XII intact, no motor deficit, no abnormal balance or gait. - Labs CBC & Chem 7: 01/17/19 11:21 01/18/19 06:27 Labs: Microbiology - Last 24 Hours (Table) 01/18/19 08:50 Blood Culture - Preliminary Blood No Growth after 24 hours 01/18/19 08:22 Blood Culture - Preliminary Blood No Growth after 24 hours 01/18/19 08:31 Blood Culture - Preliminary Blood No Growth after 24 hours Assessment and Plan Plan: 1 ventricular tachycardia: Patient hasn't AICD, patient be going for EP and ab lation therapy in the meanwhile if recurrent episode will continue IV amiodarone or antiarrhythmic medication per cardiology recommendation. 2 history of atrial fibrillation: Still on metoprolol and sotalol continue medication. 3 arrhythmia cardiomyopathy: Patient is on medical management currently. 4 post AICD: Still functioning well. 5 GI prophylaxis: Patient is on Pepcid 20 mg daily. 6 DVT prophylaxis: Patient will be on heparin 5000 units subcutaneous twice a day. 7 mild ascites with sign of liver problem: Patient be seen GI and further arrangement will be made this is possibly stasis from his arrhythmia might be the cause of the problem. Patient is going for ablation therapy today.
[2019-01-19] MEDS ORDERED: IOPAMIDOL-250 100ML BTL IV ONE (14:46)
[2019-01-19] MEDS ORDERED: ACETAMINOPHEN TAB 325 MG TAB PO PRN (15:20)
[2019-01-19] MEDS ORDERED: HYDROcodone/APAP 5-325MG 1 EACH TAB PO PRN (15:20)
--- NOTE | 2019-01-19 15:30 | P.PRLE ---
RE: Emmett Logan Dear Dr. Lopez Was kay Logan has arrhythmogenic cardio myopathy, previously known as RV dysplasia He has recurrent drug refractory ventricular tachycardia which is quite symptomatic He underwent an EP study and detailed mapping of his right ventricle 2 areas of scar were noted in the anterior right ventricle 2 ventricular tachycardias were inducible Successful mapping and ablation was performed and post tachycardias rendered noninducible For now I will continue sotalol and reduce the dose about 6 weeks later Thank you for entrusting me with the care of the patient Warm regards Sincerely Yobany Robins
--- NOTE | 2019-01-19 15:36 | P.GSCN ---
History of Present Illness Consult date: 01/19/19 Reason for Consult: Cardiothoracic surgery backup during VT ablation Requesting physician: Yobayn Robins History of present illness: This is a 28-year-old active male who follows on an outpatient basis with Dr. Tuan Wall and Dr. Robins. He has a previous medical history of arrhythmogenic dysplasia with multiple admissions for V. tach and SVT status post [facility] [facility] AICD placement in July 2015, electrophysiology studies and cardioversions. He has been maintained on Mexitil, Betapace, and Lopressor. He presented to [facility] emergency room on 01/17/2019 with complaints of several days of intermittent palpitations, racing heart, shortness of breath, nausea, and dizziness. He was also found to be hypotensive with his systolic blood pressure in the 80s. EKG in the emergency room demonstrated ventricular tachycardia with a rate 160 bpm. Chest x-ray was completed and was within normal limits. Dr. Robins saw the patient in the emergency room and performed cardioversion, with return to normal sinus rhythm and improvement of his blood pressure. He was admitted for evaluation and workup. He did have a transthoracic echocardiogram completed demonstrating ejection fraction 40-45%, inferolateral hypokinesis, moderate to severely enlarged right ventricle, mildly dilated left atrium, mild mitral regurgitation, and mild tricuspid regurgitation. He was scheduled to undergo V. tach ablation today, 01/19/2019, and Dr. Park from cardiothoracic surgery was consulted for surgical backup should any complications arise. Review of Systems Review of systems was completed and was negative except as noted in the HPI Past Medical History Past Medical History: Atrial Fibrillation, Chest Pain / Angina, Myocardial Infarction ([place]) Additional Past Medical History / Comment(s): Arrthymogenic cardiomyopathy, R ventricular displasia, vtach Last Myocardial Infarction Date:: 2015 History of Any Multi-Drug Resistant Organisms: None Reported Past Surgical History: AICD, EPS, Heart Catheterization Additional Past Surgical History / Comment(s): CARDIOVERSION Past Anesthesia/Blood Transfusion Reactions: No Reported Reaction Type of Cardiac Device: AICD Device Placement Date:: 07/2015 Smoking Status: Never smoker - Past Family History Mother Family Medical History: No Reported History Additional Family Medical History / Comment(s): Mother is alive at age 43 with no major medical problem. Father History Unknown: Yes Family Medical History: No Reported History Additional Family Medical History / Comment(s): Pt does not have contact with his father. Sister(s) Family Medical History: No Reported History Additional Family Medical History / Comment(s): Patient has one half sister with no major medical problems. Patient has 3 children with no major medical problems. Medications and Allergies Home Medications Medication Instructions Recorded Confirmed Type Metoprolol Tartrate [Lopressor] 25 mg PO BID #60 tablet 11/25/18 01/17/19 Rx Magnesium Oxide [Mag-Ox] 400 mg PO DAILY #60 tablet 01/03/19 01/17/19 Rx Mexiletine [Mexitil] 150 mg PO Q12HR #180 capsule 01/03/19 01/17/19 Rx Sotalol [Betapace] 120 mg PO BID #1 tablet 01/03/19 01/17/19 Rx Allergies Allergy/AdvReac Type Severity Reaction Status Date / Time No Known Allergies Allergy Verified 01/17/19 09:20 Surgical - Exam Vital Signs Temp Pulse Resp Pulse Ox 97.4 F L 160 H 18 100 01/17/19 08:56 01/17/19 08:56 01/17/19 08:56 01/17/19 08:56 - General well developed, well nourished, no distress, no pain - Eyes PERRL, normal ocular movement - ENT no hearing loss - Neck no masses, no bruits, trachea midline - Respiratory Currently on room air with oxygen saturation 98%. normal expansion, normal respiratory effort, clear to auscultation - Cardiovascular Sinus rhythm on telemetry. Palpable peripheral pulses bilaterally. No edema present. No calf pain or tenderness noted. Rhythm: regular Heart Sounds: normal: S1, S2 - Abdomen Abdomen: soft, non tender, bowel sounds - Genitourinary Deferred - Rectum Deferred - Integumentary no rash, no growths, no abnormal pigmentation - Neurologic normal coordination, normal sensation - Musculoskeletal normal gait, normal posture - Psychiatric oriented to time, oriented to person, oriented to place, speech is normal, memor y intact Results - Labs 01/17/19 11:21 01/18/19 06:27 - Imaging Chest x-ray: report reviewed, image reviewed EKG: image reviewed Assessment and Plan Assessment: 1. V. tach on admission, status post cardioversion 2. Arrhythmogenic dysplasia with multiple admissions for V. tach and SVT, status post [facility] AICD placement in July 2015 3. Currently undergoing V. tach ablation Plan: The patient was seen and examined at the bedside. Charts/diagnostics were reviewed. The case was discussed between Dr. Robins and Dr. Park. At this time we are on standby backup for surgical intervention should any complications arise during ablation for which the patient needs emergent cardiac surgery. Continue medical management per Dr. Robins and primary care service. Thank you Dr. Robins for this consult. Please call us for any further concerns. Time with Patient: Greater than 30
[2019-01-19] MEDS ORDERED: ACETAMINOPHEN IV (For NPO) 1,000 MG in EMPTY BAG 1 BAG IVPB ONE (16:00)
[2019-01-19 16:04] LABS: ALT 83 U/L (21-72); AST 68 U/L (17-59); African American GFR (CKD) >90 (>60 ml/min/1.73 sqM); Albumin 4.1 g/dL (3.5-5.0); Alkaline Phosphatase 63 U/L (38-126); Anion Gap 7 mmol/L; Blood Urea Nitrogen 10 mg/dL (9-20); Calcium 9.1 mg/dL (8.4-10.2); Carbon Dioxide 30 mmol/L (22-30); Chloride 104 mmol/L (98-107); Glucose 96 mg/dL (74-99); Potassium 4.4 mmol/L (3.5-5.1); Sodium 141 mmol/L (137-145); Total Bilirubin 0.7 mg/dL (0.2-1.3); Total Protein 6.9 g/dL (6.3-8.2)
--- NOTE | 2019-01-19 16:15 | P.PCN ---
Preoperative Diagnosis: Dual-chamber ICD interrogation with reprogramming of the end of the procedure The dual-chamber ICD was then interrogated at the end of the procedure procedures medical Atrial pacing threshold 0.7 V at 0.5 ms, P waves 4.5 mV pacing impedance 340 ohms RV pacing impedance mildly increased at 1.. 0.5 ms R waves 4.2 mV, pacing impedance 350 ohms 3 zones of brachytherapy reprogrammed VT 1 monitor zone VT to therapy at 24 beats a minute VF zone at 240 beats a minute Appropriate antitachycardia pacing cardio version defibrillation programmed Reason mode DDD 50-140 bpm with a long AV delay of 275 ms On fluoroscopy atrial and ventricular lead positions wre stable at the end of the procedure
--- NOTE | 2019-01-19 22:02 | PCN ---
PROCEDURE NOTE Emmett Logan is a 28 -year-old male patient with electrogenic cardiomyopathy known. He has known sustained ventricular tachycardia and he has been having experiencing breakthrough episodes despite sotalol 120 mg twice daily. He had been electively scheduled for EP study and VT ablation. However, last week, he started experiencing ventricular tachycardia on sotalol and came to the hospital 2 days back. He was hypotensive in the 80s. He was treated with sotalol and mexiletine and IV lidocaine, but the tachycardia did not terminate and it required antitachycardia pacing in the emergency room. DESCRIPTION OF PROCEDURE: Today, he was brought in to the EP lab in a fasting state. Written informed consent was obtained prior to the procedure. The right and left groins were prepped and draped as per protocol. IV antibiotics were administered. Dual-chamber ICD, [employer] [facility], was interrogated and reprogrammed. VT therapies were turned off. Pacing threshold 0.75 V at 0.5 milliseconds, impedances were stable. All therapies were turned off. Backup VVI pacing at 40 beats per minute was programmed. A 5-Tamazight arterial sheath was placed in the right femoral artery for continuous hemodynamic monitoring and sampling. Type and screen was sent. Venous sheaths were placed in the right and left femoral veins and via these diagnostic mapping and ablation catheters were placed. Intracardiac echo catheter was placed. Intracardiac echo catheter cardiac catheter was used to create a 3D shell of the right ventricle. The pulmonic valve and tricuspid valves were tagged. The ICD lead was tagged. Following that, a PentaRay catheter was placed in the right ventricle. Diagnostic catheters was placed in the His bundle area and later in the right ventricle. Detailed scar mapping was performed in sinus rhythm. The patient had an extensive scar anteriorly starting just below the pulmonic valve extending inferiorly and slightly anteroseptally. There was a 2nd area of scar on the anterior wall close to the tricuspid valve on the anterior inferior aspect. The bipolar endocardial scar was a lot less prominent than the unipolar scar that was obtained. The unipolar scar was quite extensive along the anterior wall. A full diagnostic EP study was performed up to triple extra stimuli on high-dose Isuprel and ventricular tachycardia was induced. There were 2 VTs that were induced. The 1st VT had upright QRS in the inferior leads and negative QRS in the anterior leads. Lead 1 was grossly negative. Activation mapping was performed and the earliest activation site was noted just below the tricuspid valve anteroseptally. The patient's blood pressure remained mostly stable through this part of the procedure. The 2nd VT that was induced on Isuprel with triple extra stimuli seemed to originate from the anterior inferior wall just anterior to the tricuspid anulus. The patient was quite was hypotensive compared to an 80-90 mmHg and a second activation map was made to identify the exit site in the isthmus of this VT. Following that, pace mapping was performed to confirm the exit site for each VT. The bipolar scar map, unipolar endocardial scar map and the activation maps and the pace maps were then integrated. Mapping strategy was formed. RF ablation was performed from the pulmonic valve anteriorly along the scar to just about the midbody on the anterior wall. A complete line of block was made and later the first VT could not be induced. RF ablation was performed anterior to the tricuspid anulus anterior inferior aspect. Following completion of ablation in the area, in the isthmus and the exit site, 2nd VT also could not be induced on high-dose Isuprel with up to triple extrastimuli. However, this was a very long procedure because the right ventricle is very dilated atrial took a long time to build the voltage map with PentaRay catheter. Subsequently, the mapping to the ventricular tachycardia and during ablation, it was difficult to obtain good contact force and finally a MOVI catheter sheath was used to improve the contact force. Contact force of between 10-20 g was used and a power of mostly up to 225 harvey was used. Near the tricuspid anulus power of 30 harvey was used. RF duration between 15-30 seconds was delivered. After completion, it took a long time to complete these two separate lesion sets on account of difficulty with moving catheter on account of a very dilated right ventricle, and difficulty in obtaining adequate contact force to deliver RF energy. However, ultimately with a long sheath and good contact force was achieved and the RF lesion sets in the 2 areas were completed and following that, a detailed EP study was performed on and off Isuprel with up to triple extra stimuli. VT could not be induced again. The patient tolerated the procedure well without any acute complications. Intracardiac echo at the end of the procedure did not reveal any evidence for pericardial effusion. Patient remained stable through the procedure and at the end of procedure. All sheaths were then removed. An Angio-Seal was placed in the femoral artery to seal the puncture site. IMPRESSION: 1. 28-year-old male patient with arrhythmogenic cardiomyopathy with 2 inducible ventricular tachycardias, both which was successfully ablated. 2. Dilated right ventricle with anterior scar. Predominantly epicardial rub and endocardial. 3. Successful ablation of distinct ventricular tachycardias, 1 close to the pulmonic valve the closed in the tricuspid valve. 4. There was minimal scarring in the apex. PLAN: Continue sotalol 120 mg twice daily for about 6 weeks, then reduce the dose to thereafter. MMODL / IJN: [id number] /
--- NOTE | 2019-01-19 22:42 | P.PN ---
Subjective Progress Note Date: 01/19/19 Principal diagnosis: Elevated liver enzymes Attempted to see the patient today however was out of his room, for a cardiac procedure/ablation. The gastroenterology service will continue to follow. Objective - Vital Signs Vital signs: Vital Signs Temp 97.8 F 01/19/19 04:20 Pulse 52 L 01/19/19 04:20 Resp 16 01/19/19 04:20 BP 118/55 01/19/19 04:20 Pulse Ox 98 01/19/19 04:20 Intake & Output 01/18/19 01/19/19 01/19/19 18:59 06:59 18:59 Intake Total 1950 1950 Output Total 900 Balance 1950 1050 Weight 79.3 kg Intake: IV 50 1950 0.9 0 Invasive Line 1 10 Invasive Line 2 10 Invasive Line 3 30 Oral 1900 Output: Urine 900 Other: Voiding Method Urinal Urinal # Voids 0 1 # Bowel Movements 0 - Labs CBC & Chem 7: 01/17/19 11:21 01/19/19 15:32 Labs: Microbiology - Last 24 Hours (Table) 01/18/19 08:50 Blood Culture - Preliminary Blood No Growth after 24 hours 01/18/19 08:22 Blood Culture - Preliminary Blood No Growth after 24 hours 01/18/19 08:31 Blood Culture - Preliminary Blood No Growth after 24 hours Assessment and Plan (1) Elevated liver enzymes Current Visit: No Status: Acute Code(s): R74.8 - ABNORMAL LEVELS OF OTHER SERUM ENZYMES SNOMED Code(s): 217505095
[2019-01-19 23:13] LABS: Protein, Total 6.1 g/dL (6.2-8.2)
[2019-01-19 23:24] LABS: Iron Saturation 15.57 (15.00-50.00)
[2019-01-19 23:33] LABS: Ferritin 240.6 ng/mL (22.0-322.0)
[2019-01-20 00:15] LABS: Hepatitis A Antibody IgM Non-Reactive (Non-Reactive); Hepatitis B Core IgM Non-Reactive (Non-Reactive); Hepatitis B Surface Antigen Non-Reactive (Non-Reactive); Hepatitis C IgG Antibody Non-Reactive (Non-Reactive)
[2019-01-20] MEDS ORDERED: APIXABAN 5 MG TAB PO SCH (07:00)
[2019-01-20 07:38] LABS: ALT 70 U/L (21-72); AST 47 U/L (17-59); African American GFR (CKD) >90 (>60 ml/min/1.73 sqM); Albumin 3.9 g/dL (3.5-5.0); Alkaline Phosphatase 63 U/L (38-126); Anion Gap 8 mmol/L; Blood Urea Nitrogen 12 mg/dL (9-20); Calcium 9.1 mg/dL (8.4-10.2); Carbon Dioxide 30 mmol/L (22-30); Chloride 101 mmol/L (98-107); Glucose 93 mg/dL (74-99); Sodium 139 mmol/L (137-145); Total Bilirubin 1.2 mg/dL (0.2-1.3); Total Protein 6.8 g/dL (6.3-8.2)
--- NOTE | 2019-01-20 08:18 | P.DS ---
Providers Date of admission: 01/17/19 13:39 Attending physician: Jeronimo Goldsmith Consults: 01/17/19 13:01 Consult Physician Stat Consulting Provider: Yobany Robins Consult Reason/Comments: cardiology Do you want consulting provider notified?: Yes 01/18/19 07:15 Consult Physician Routine Consulting Provider: Duke Bellamy Consult Reason/Comments: elevated liver enzymes, clearance for surgery Do you want consulting provider notified?: Yes 01/19/19 16:39 Consult Physician Routine Consulting Provider: Lonnie Park Consult Reason/Comments: cardiomyopathy, high risk VT ablation Do you want consulting provider notified?: Already Contacted Primary care physician: [facility] Course: Patient is doing well from a cardiac standpoint. He denies any chest discomfort dizziness lightheadedness he denies any pleuritic chest discomfort no cough expectoration no dizziness He didn't Go to the bathroom Groins healing well he's had no hematoma no bleeding issues overnight On examination his vitals are stable Blood pressure 119/59 mmHg he is afebrile 98.1F pulse rate in the 70s Breath sounds are clear no rhonchi no crackles Normal heart sounds normal S1 normal S2 no rub no gallop Abdomen soft Eccentric 70s warm no edema Sutures in both groins were removed by me today Impression ARVD/arrhythmogenic cardiomyopathy, previously known as RV dysplasia Recurrent drug refractory ventricular tachycardia despite sotalol 3-D mapping of the right ventricle, scar mapping, activation mapping and pace mapping of the ventricular tachycardia Anterior RV wall scar, 1 large area starting just below the pulmonic valve and extending to the mid body and to the anterior septum associated with his clinical ventricular tachycardia Status post successful ablation Second area of scar was clif-Tricuspid valve, anteriorly-inferiorly and associated with the second inducible ventricular tachycardia, which is also successfully ablated Both tachycardias were rendered noninducible at the end of the procedure on and off Isuprel and with up to triple ventricular extrastimuli Comparison of bipolar and unipolar voltage maps showed that his epicardial scar was far more extensive than his endocardial scar, as expected RF lesions sites were designed to cover both areas of scar These were 2 distinct areas by about 4.1 cm Detailed discussion with the patient and his regarding future course Possibilities include further ventricle tachycardias especially with epicardial exhibits Sporting restriction especially vigorous exercise and aerobics explained Evaluation of members of the family for arrhythmogenic cardio myopathy emphasized Disease process explained Plan Ambulate in the hallways If stable and no groin issues then he may go home by lunchtime Stop mexiletine Apixaban 5 mg twice daily for one month only and then stop Continue sotalol 120 mg twice daily Continue metoprolol 25 mg twice daily Follow-up with Dr. Robins/Jessa Sargent/Annabel Faustin within one to 2 weeks Patient Condition at Discharge: Stable Plan - Discharge Summary Discharge Rx Participant: No New Discharge Prescriptions: No Action Metoprolol Tartrate [Lopressor] 25 mg PO BID #60 tablet Magnesium Oxide [Mag-Ox] 400 mg PO DAILY #60 tablet Sotalol [Betapace] 120 mg PO BID #1 tablet Mexiletine [Mexitil] 150 mg PO Q12HR #180 capsule Discharge Medication List Metoprolol Tartrate [Lopressor] 25 mg PO BID #60 tablet 11/25/18 [Rx] Magnesium Oxide [Mag-Ox] 400 mg PO DAILY #60 tablet 01/03/19 [Rx] Mexiletine [Mexitil] 150 mg PO Q12HR #180 capsule 01/03/19 [Rx] Sotalol [Betapace] 120 mg PO BID #1 tablet 01/03/19 [Rx] Follow up Appointment(s)/Referral(s): Yobany Robins MD [STAFF PHYSICIAN] - 01/25/19 1:45 pm (Wednesday) Tuan Wall MD [Primary Care Provider] - 1-2 days
--- NOTE | 2019-01-20 08:19 | P.PN ---
Subjective Patient is doing well from a cardiac standpoint. He denies any chest discomfort dizziness lightheadedness he denies any pleuritic chest discomfort no cough expectoration no dizziness He didn't Go to the bathroom Groins healing well he's had no hematoma no bleeding issues overnight On examination his vitals are stable Blood pressure 119/59 mmHg he is afebrile 98.1F pulse rate in the 70s Breath sounds are clear no rhonchi no crackles Normal heart sounds normal S1 normal S2 no rub no gallop Abdomen soft Eccentric 70s warm no edema Sutures in both groins were removed by me today Impression ARVD/arrhythmogenic cardiomyopathy, previously known as RV dysplasia Recurrent drug refractory ventricular tachycardia despite sotalol 3-D mapping of the right ventricle, scar mapping, activation mapping and pace mapping of the ventricular tachycardia Anterior RV wall scar, 1 large area starting just below the pulmonic valve and extending to the mid body and to the anterior septum associated with his clinical ventricular tachycardia Status post successful ablation Second area of scar was clif-Tricuspid valve, anteriorly-inferiorly and associated with the second inducible ventricular tachycardia, which is also successfully ablated Both tachycardias were rendered noninducible at the end of the procedure on and off Isuprel and with up to triple ventricular extrastimuli Comparison of bipolar and unipolar voltage maps showed that his epicardial scar was far more extensive than his endocardial scar, as expected RF lesions sites were designed to cover both areas of scar These were 2 distinct areas by about 4.1 cm Detailed discussion with the patient and his regarding future course Possibilities include further ventricle tachycardias especially with epicardial exhibits Sporting restriction especially vigorous exercise and aerobics explained Evaluation of members of the family for arrhythmogenic cardio myopathy emphasized Disease process explained Plan Ambulate in the hallways If stable and no groin issues then he may go home by lunchtime Stop mexiletine Apixaban 5 mg twice daily for one month only and then stop Continue sotalol 120 mg twice daily Continue metoprolol 25 mg twice daily Follow-up with Dr. Robins/Jessa Sargent/Annabel Faustin within one to 2 weeks Objective - Vital Signs Vital signs: Vital Signs Temp 98.1 F 01/20/19 08:01 Pulse 66 01/20/19 08:01 Resp 16 01/20/19 08:01 BP 119/59 01/20/19 08:01 Pulse Ox 97 01/20/19 08:01 Intake & Output 01/19/19 01/20/19 01/20/19 18:59 06:59 18:59 Intake Total 3996 300 Output Total 1850 1000 Balance 2146 -1000 300 Weight 79.2 kg Intake: IV 2746 Intake, IV Titration 450 Amount ACETAMINOPHEN IV (For NPO 400 ) 1,000 mg In Empty Bag 1 bag @ 400 mls/hr IVPB ONCE ONE Rx#:[id number] ceFAZolin 2 gm In Sodium 50 Chloride 0.9% 50 ml @ 100 mls/hr IVPB ONCE ONE Rx# :[id number] Oral 800 300 Output: Urine 1850 1000 Other: Voiding Method Urinal Urinal Urinal - Labs CBC & Chem 7: 01/17/19 11:21 01/20/19 06:55 Labs: Abnormal Lab Results - Last 24 Hours (Table) 01/19/19 01/19/19 01/19/19 Range/Units 15:32 15:32 15:32 Iron 45 L (65-175) ug/dL AST 68 H (17-59) U/L ALT 83 H (21-72) U/L Total Protein (PEP) 6.1 L (6.2-8.2) g/dL Microbiology - Last 24 Hours (Table) 01/18/19 08:50 Blood Culture - Preliminary Blood No Growth after 24 hours 01/18/19 08:22 Blood Culture - Preliminary Blood No Growth after 24 hours 01/18/19 08:31 Blood Culture - Preliminary Blood No Growth after 24 hours
--- NOTE | 2019-01-20 08:23 | P.PRLE ---
RE: DesmondSilas Dear Reji You see the family members/children of Emmett Logan has arrhythmogenic cardio myopathy, previously known as RV dysplasia As you know this genetic condition has a predilection for male members of the family and at some point in time it would be advisable to send his sons to the pediatric cardiology group at the [facility] for further evaluation. Regards Sincerely Yobany Robins
[2019-01-20] MEDS ORDERED: METOPROLOL TARTRATE 25 MG TAB PO SCH (09:00)
[2019-01-20] MEDS: SOTALOL 120 MG TAB PO SCH (09:04)
[2019-01-20] MEDS: SODIUM CHLORIDE 0.9% 1,000 ML IV SCH (09:07)
--- NOTE | 2019-01-20 10:34 | P.PN ---
Subjective Progress Note Date: 01/20/19 Principal diagnosis: Elevated liver enzymes 28-year-old male arrhythmia cardiomyopathy /RV dysplasia status post ablation. Follow-up today in regards to previous elevation of LFTs; LFTs normalize total bilirubin 1.2. AST 47. ALT 70. AP 63. Hepatitis screen nonreactive. Objective - Vital Signs Vital signs: Vital Signs Temp 98.1 F 01/20/19 08:01 Pulse 66 01/20/19 08:01 Resp 16 01/20/19 08:01 BP 119/59 01/20/19 08:01 Pulse Ox 97 01/20/19 08:01 Intake & Output 01/19/19 01/20/19 01/20/19 18:59 06:59 18:59 Intake Total 3996 300 Output Total 1850 1000 Balance 2146 -1000 300 Weight 79.2 kg Intake: IV 2746 Intake, IV Titration 450 Amount ACETAMINOPHEN IV (For NPO 400 ) 1,000 mg In Empty Bag 1 bag @ 400 mls/hr IVPB ONCE ONE Rx#:[id number] ceFAZolin 2 gm In Sodium 50 Chloride 0.9% 50 ml @ 100 mls/hr IVPB ONCE ONE Rx# :[id number] Oral 800 300 Output: Urine 1850 1000 Other: Voiding Method Urinal Urinal Urinal - Exam General appearance: The patient is alert, oriented, in no acute distress. HET: Head is normocephalic and atraumatic. Pupils are equal and reactive. Oropharynx is clear without lesions. Neck: Supple without lymphadenopathy. Trachea midline. Heart: S1 S2. Regular rate and rhythm. Lungs: No crackles or wheezes are heard. Abdomen: Soft, nontender, nondistended with bowel sounds. No peritoneal signs. No palpable organomegaly or masses. Extremities: Normal skin color and turgor. No cyanosis, rash, ulceration, clubbing, or edema. Radial and pedal pulses are 2/4 bilaterally. Neurological: No focal deficits. Strength and sensation are grossly intact. - Labs CBC & Chem 7: 01/17/19 11:21 01/20/19 06:55 Labs: Abnormal Lab Results - Last 24 Hours (Table) 01/19/19 01/19/19 01/19/19 Range/Units 15:32 15:32 15:32 Iron 45 L (65-175) ug/dL AST 68 H (17-59) U/L ALT 83 H (21-72) U/L Total Protein (PEP) 6.1 L (6.2-8.2) g/dL Microbiology - Last 24 Hours (Table) 01/18/19 08:50 Blood Culture - Preliminary Blood No Growth after 24 hours 01/18/19 08:22 Blood Culture - Preliminary Blood No Growth after 24 hours 01/18/19 08:31 Blood Culture - Preliminary Blood No Growth after 24 hours Assessment and Plan (1) Elevated liver enzymes Narrative/Plan: 28-year-old male admitted with symptomatic arrhythmia history of arrhythmia cardiomyopathy/RV dysplasia status post successful ablation with admission transaminitis predominantly hepatocellular pattern suspect secondary to hypoperfusion state secondary to cardiac abnormality passive congestion with biochemical improvement. Current Visit: No Status: Acute Code(s): R74.8 - ABNORMAL LEVELS OF OTHER SERUM ENZYMES SNOMED Code(s): 615174147 Plan: 1. Hepatitis serology nonreactive LFTs have normalized no further workup from a GI standpoint discharge per cardiology and medicine. Assessment plan a care discussed with Dr. Stanley
[2019-01-20 11:22] LABS: Liver/Kidney Microsome Antibod 0.5 UNITS (<=20)
[2019-01-20 12:00] VITALS: BP 113/68; PULSE 68; RESP 18; TEMP 98
--- NOTE | 2019-01-20 12:23 | P.DS ---
Providers Date of admission: 01/17/19 13:39 Attending physician: Jeronimo Goldsmith Consults: 01/17/19 13:01 Consult Physician Stat Consulting Provider: Yobany Robins Consult Reason/Comments: cardiology Do you want consulting provider notified?: Yes 01/19/19 16:39 Consult Physician Routine Consulting Provider: Lonnie Park Consult Reason/Comments: cardiomyopathy, high risk VT ablation Do you want consulting provider notified?: Already Contacted Primary care physician: [facility] Course: V. tach, history of ventricular arrhythmia, A. 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 28-year-old male one of Dr. Villegas's patient with past medical history of recurrent V. tach post AICD, history of A. fib, history of arrhythmic cardiomyopathy who was in the hospital a few weeks ago with another episode of V. tach was recommended to go for ablation therapy at the time and refused. Patient has been seen Dr. Robins on regular basis and has been on beta jerilyn with no anticoagulation. Patient presented to demurs department at [facility] on 01/18/2019 complaining of worsening palpitation after he called Dr. Robins and instructed to go to the emergency apartment was evaluated and found to have ventricular tachycardia, cardiology had seen him in demurs department made the recommendation and contacted Dr. Robins patient be hospitalized after converting his V. tach patient pulsatile in the 70s and 80s patient be going for ablation therapy well is the hospitalist time. 01/18: Patient is scheduled for a V. tach ablation on with Dr. Robins echocardiogram has been ordered. He is continued on Mexitil 150 mg every 8 hours and sotalol 120 mg twice daily. Abdominal ultrasound revealed small amount of perihepatic and a splenic ascites. CAT scan was recommended. Trace right pleural effusion. CAT scan of the abdomen has been ordered by cardiology due to abdominal pain. CAT scan reveals small amount of ascites present. Small pleural effusions right greater than left. Patient has been afebrile, heart rate 58, blood pressure 160/63, pulse ox 100% on 2 L nasal cannula. 01/19: Patient is going for ablation with Dr. Robins this morning he is doing well stable no major abnormality there is a small amount of ascites was found patient apparently will be seen gastroenterology at this point. 01/20: Patient had ablation yesterday successfully doing well no complication was seen GI and EP today patient be discharged home. - Exam Review of Systems CONSTITUTIONAL: Well-developed no acute respiratory distress. Patient ambulatory in his room. EYES: No icterus sclerae, no conjunctivitis. EARS, NOSE, MOUTH, THROAT, and FACE: No sore throat, lymphadenopathy, carotid bruits or deformity. RESPIRATORY: No SOB cough or wheezes. CARDIOVASCULAR: No CP, Palpitation, PND, Orthopnea, or angina. GASTROINTESTINAL: No Abd pain, Nausea or vomiting, no Diarrhea or constipation, No GI Bleed, no distention or masses. GENITOURINARY: Negative for Hematuria or UTI, no kidney stones. INTEGUMENT/BREAST: Negative for any muscular injury with mild osteoarthritis.. HEMATOLOGIC/LYMPHATIC: Negative for bleed or purpura. MUSCULOSKELTAL: Negative for Myalgia or arthralgia. NEURLOGICAL: No LOC, Sz or syncope, blurred vision dizziness or abnormality.. BEHAVIORAL/PSYCH: Negative. ENDOCRINE: Negative. - Exam General Appearance: Alert, cooperative, no distress. Neck HEENT: Supple, no lymphadenopathy, no thyroid enlargement, no carotid bruits. Lungs: Clear to auscultation without crackles or wheezes no rhonchi, no deformity. Chest Wall: Chest wall normal expansion with deep inspiration no tenderness and no deformity was found on exam, no costochondral pain or discomfort. Heart: Regular rate and rhythm, S1, S2 normal, no murmur, rub or gallop. Back: Symmetric, no curvature, ROM normal, no CVA tenderness. Abdomen: Soft, non-tender, bowel sounds active all four quadrants, no masses, no organomegaly. Extremities: Extremities normal, atraumatic, no cyanosis or edema. Pulses: 2+ and symmetric. Skin: Skin color, texture, tugor normal, no rashes or lesions. Neurologic: Alert oriented x3 cranial nerves II through XII intact, no motor deficit, no abnormal balance or gait. Assessment and Plan Plan: 1 ventricular tachycardia: Patient hasn't AICD, patient be going for EP and ablation therapy in the meanwhile if recurrent episode will continue IV amiodarone or antiarrhythmic medication per cardiology recommendation. 2 history of atrial fibrillation: Still on metoprolol and sotalol continue medication. 3 arrhythmia cardiomyopathy: Patient is on medical management currently. 4 post AICD: Still functioning well. 5 GI prophylaxis: Patient is on Pepcid 20 mg daily. 6 DVT prophylaxis: Patient will be on heparin 5000 units subcutaneous twice a day. 7 mild ascites with sign of liver problem: Patient be seen GI and further arrangement will be made this is possibly stasis from his arrhythmia might be the cause of the problem. The following his common statement from Dr. Robins after his ablation: Impression ARVD/arrhythmogenic cardiomyopathy, previously known as RV dysplasia Recurrent drug refractory ventricular tachycardia despite sotalol 3-D mapping of the right ventricle, scar mapping, activation mapping and pace mapping of the ventricular tachycardia Anterior RV wall scar, 1 large area starting just below the pulmonic valve and extending to the mid body and to the anterior septum associated with his clinical ventricular tachycardia Status post successful ablation Second area of scar was clif-Tricuspid valve, anteriorly-inferiorly and associat ed with the second inducible ventricular tachycardia, which is also successfully ablated Both tachycardias were rendered noninducible at the end of the procedure on and off Isuprel and with up to triple ventricular extrastimuli Comparison of bipolar and unipolar voltage maps showed that his epicardial scar was far more extensive than his endocardial scar, as expected RF lesions sites were designed to cover both areas of scar These were 2 distinct areas by about 4.1 cm Detailed discussion with the patient and his regarding future course Possibilities include further ventricle tachycardias especially with epicardial exhibits Sporting restriction especially vigorous exercise and aerobics explained Evaluation of members of the family for arrhythmogenic cardio myopathy emphasized Disease process explained Plan Ambulate in the hallways If stable and no groin issues then he may go home by lunchtime Stop mexiletine Apixaban 5 mg twice daily for one month only and then stop Continue sotalol 120 mg twice daily Continue metoprolol 25 mg twice daily Follow-up with Dr. Robins/Jessa Sargent/Annabel Faustin within one to 2 weeks Also GI, the patient elevated liver function test is related to hepatitis serology nonreactive and further workup with GI camera done as an outpatient. Patient be discharged home today. Patient Condition at Discharge: Stable Plan - Discharge Summary Discharge Rx Participant: No New Discharge Prescriptions: New Apixaban [Eliquis] 5 mg PO BID #60 tab Discontinued Magnesium Oxide [Mag-Ox] 400 mg PO DAILY #60 tablet Mexiletine [Mexitil] 150 mg PO Q12HR #180 capsule No Action Metoprolol Tartrate [Lopressor] 25 mg PO BID #60 tablet Sotalol [Betapace] 120 mg PO BID #1 tablet Discharge Medication List Metoprolol Tartrate [Lopressor] 25 mg PO BID #60 tablet 11/25/18 [Rx] Sotalol [Betapace] 120 mg PO BID #1 tablet 01/03/19 [Rx] Apixaban [Eliquis] 5 mg PO BID #60 tab 01/20/19 [Rx] Follow up Appointment(s)/Referral(s): Yobany Robins MD [STAFF PHYSICIAN] - 01/25/19 1:45 pm (Wednesday) Tuan Wall MD [Primary Care Provider] - 1-2 days (Office is closed on Fridays. Please call to schedule appointment) Patient Instructions/Handouts: Cardiac Ablation (DC), Safe Use of Anticoagulants (DC)
[2019-01-20 12:36] LABS: Ceruloplasmin 26.2 mg/dL (20.0-60.0)
[2019-01-23 12:31] LABS: Albumin 3.65 g/dL (3.80-4.90); Gamma Globulin 0.94 g/dL (0.70-1.50)
== END 2019-01-20 14:44 | disposition home or self-care (01) | DRG 274 ==
LOC: EC 08:53 → 3SCARD 13:39
PROVIDERS: ADMIT Internal Medicine Geriatric Medicine; ATTEND Internal Medicine Geriatric Medicine
PROC: 4A0234Z Measurement of Cardiac Electrical Activity, Percutaneous Approach (ICD-10-PCS; principal; 2019-01-17)
PROC: 4B02XTZ Measurement of Cardiac Defibrillator, External Approach (ICD-10-PCS; principal; 2019-01-17)
PROC: 02583ZZ Destruction of Conduction Mechanism, Percutaneous Approach (ICD-10-PCS; principal; 2019-01-17)
PROC: 4A023FZ Measurement of Cardiac Rhythm, Percutaneous Approach (ICD-10-PCS; principal; 2019-01-17)
PROC: 02K83ZZ Map Conduction Mechanism, Percutaneous Approach (ICD-10-PCS; principal; 2019-01-17)
PROC: 4B02XTZ Measurement of Cardiac Defibrillator, External Approach (ICD-10-PCS; 2019-01-17)
DX: I47.2 Ventricular tachycardia (principal); I42.9 Cardiomyopathy, unspecified; R18.8 Other ascites; I25.10 Atherosclerotic heart disease of native coronary artery without angina pectoris; I25.2 Old myocardial infarction; I44.7 Left bundle-branch block, unspecified; I48.91 Unspecified atrial fibrillation; K21.9 Gastro-esophageal reflux disease without esophagitis; K74.60 Unspecified cirrhosis of liver; Z79.01 Long term (current) use of anticoagulants; Z79.899 Other long term (current) drug therapy; Z95.810 Presence of automatic (implantable) cardiac defibrillator
CPT/HCPCS: 36415; 71046; 74150; 76700; 80053; 80074; 80306; 82103; 82390; 82728; 83516; 83540; 83550; 83735; 84165; 85025; 85347; 85610; 85730; 86038; 86376; 87040; 93005; 93306; 93623; 93654; 93662; 96360; 99291

== ENCOUNTER → 2019-05-01 | Outpatient (CLI) | payer OTHER ==
[2019-05-01 21:48] LABS: Anion Gap 8.2 mmol/L (4.00-12.00); Calcium 9.5 mg/dL (8.7-10.3); Carbon Dioxide 25.8 mmol/L (21.6-31.8); Non-African American GFR(CKD) 102.7 (60.0-200.0); Potassium 4.8 mmol/L (3.5-5.5)
== END | disposition home or self-care (01) ==
LOC: LABWHC1 11:59
PROVIDERS: ATTEND Physician Assistant
DX: I42.9 Cardiomyopathy, unspecified (principal)
CPT/HCPCS: 36415; 80048

== ENCOUNTER → 2019-10-09 | Outpatient (CLI) | payer OTHER ==
[2019-10-09 16:59] LABS: African American GFR (CKD) 135.2 (60.0-200.0); Anion Gap 5.3 mmol/L (4.00-12.00); BUN/Creat Ratio 14.44 Ratio (12.00-20.00); Calcium 9.6 mg/dL (8.7-10.3); Carbon Dioxide 27.7 mmol/L (21.6-31.8); Non-African American GFR(CKD) 116.6 (60.0-200.0); Potassium 4.8 mmol/L (3.5-5.5)
== END | disposition home or self-care (01) ==
LOC: LABWHC1 08:27
PROVIDERS: ATTEND Physician Assistant
DX: I42.9 Cardiomyopathy, unspecified (principal)
CPT/HCPCS: 36415; 80048

== ENCOUNTER → 2019-11-23 | Outpatient (CLI) | payer OTHER | END | disposition home or self-care (01) | LOC: LABWHC1 08:52 | PROVIDERS: ATTEND Emergency Medicine | DX: Z20.828 Contact with and (suspected) exposure to other viral communicable diseases (principal) | CPT/HCPCS: U0003; C9803 ==